=== PATIENT | male | born 1940 | race Caucasian/White ===

== ENCOUNTER 2017-12-01 10:30 | Outpatient (RCR) | payer MEDICARE, OTHER, SELFPAY ==
[2017-11-24 09:49] VITALS: BP 155/69; PULSE 73; RESP 18; TEMP 36.6; BMI 27.1
--- NOTE | 2017-11-24 12:47 | HP.PCM_ITS ---
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 (2) PVD (peripheral vascular disease) Status: Acute Current Visit: Yes Code(s): I73.9 - Peripheral vascular disease, unspecified (3) Lower extremity edema Status: Acute Current Visit: Yes Code(s): R60.0 - Localized edema (4) Delayed wound healing Status: Acute Current Visit: Yes Code(s): T14.8XXD - Other injury of unspecified body region, subsequent encounter (5) Malnutrition Status: Suspected Current Visit: Yes Code(s): E46 - Unspecified protein- calorie malnutrition History of Present Illness Date of Service: 11/24/17 Chief Complaint: Ulcer to left heel History of Wound: Patient is a poor historian, and it is hard to get information from him. Patient states that he noticed a blister starting on the back of his heel over 3 months ago. According to the patient, he did nothing about the blister and did not treat or dress the area. He says that both of his legs had been swelling as well and he was being treated with a water pill. He says that as the swelling was going down his blister popped. He said he still did not do anything to treat the area. He said he was seen recently by Jak Fritz who sent the patient to wound care center to be treated. The patient says he continues to walk on the area and was not told that he wasn't supposed to. He says his son helps him and can help with dressing changes if needed. He says he has not noticed any redness, bad smells, or any pus from the area. He currently denies any feelings of nausea, vomiting, fever, or chills. Past Medical History Allergies/Adverse Reactions: Allergies Sulfa (Sulfonamide Antibiotics) Allergy (Verified 11/24/17 10:11) Rash Home Medications: Ambulatory Orders Medication Instructions Recorded Lasix 40 mg PO BID 04/26/14 Tamsulosin HCl [Flomax] 0.4 mg PO DAILY 11/24/17 Valsartan 320 mg PO DAILY 11/24/17 Smoking Status: Former smoker Review of Systems Constitutional: Denies: Chills, Fever, Weight Change Cardiovascular: Denies: Chest Pain, Palpitations Respiratory: Denies: Shortness of Breath - today Gastrointestinal: Denies: Diarrhea, Nausea, Vomiting Skin: Reports: Wounds - left heel - Physical Exam Vital Signs Temp Pulse Resp BP 97.8 F 73 18 155/69 H 11/24/17 09:49 18 09:49 11/24/17 09:49 11/24/17 09:49 General: Alert, Oriented x3, Cooperative, No apparent distress Extremities: Capillary Refill Less than 3 Seconds, No Calf Tenderness - negative gerard and santoyo sign bilateral, Diminished Peripheral Pulses - DP and PT pulses non palpable due to edema in lower extremities, Edema - lower extremity edema Skin: Ulcer/ Wound - Unstageable ulcer appreciated to the patients left posterior heel. Ulcer had layer of loosened thick hyperkeratotic skin covering the area. Upon debridment and careful removal of this hyperkeratotic tissue, much of the underlying skin was intact. There is an ulcer area still appreciated to the center and the depth is unstageable. Length and width measurements noted below. No fluctuance, no probing, no tracking, no undermining , and no purulence noted. No surrounding cellulitis or increased warmth. Very slight sponginess to center of ulcer. Wound Measurements and Assessment WC - Nurse 1 - General Ulcer Measurement Start: 11/24/17 09:49 Freq: Status: Active Protocol: Activity Type Activity Date Activity User E-Sign Co-Sign Detail Recorded Client Recorded Date Recorded By Document 11/24/17 09:49 DL [id number] 11/24/17 10:06 DL 11/24/17 09:49 Wound Center Nurse 1 [Ulcer Assessment] 1-left heel -Combined with other wound No -Current Size (cm) - Length 2.0 -Current Size (cm) - Width 1.7 -Current Size (cm) - Depth 0.1 -Total Square Cm 3.40 -Photo Taken Yes -Epithelialization Medium 34-66% -Tunneling No -Undermining/Tunneling No -Circular Undermining No -Classification - Pressure Ulcer Unstageable -Exudate Amt None Present (0 %) -Wound Margin Flat & Intact -Granulation Amt None Present (0 %) -Slough/Fibrin Yes -Necrosis Amt Large (67-100%) -Necrotic Tissue Type Adherent Slough -Structure Exposed N/A -Texture (Radha-wound Skin Appearance) Assessed Localized Edema -Moisture (Radha-wound Skin Appearance Assessed ) Dry/Scaly -Color (Radha-wound Skin Appearance) Assessed -Temperature (Radha-wound Skin No Abnormality Appearance) (Pt Warm) -Tenderness on Palpation (Radha-wound No Skin Appearance) -Ulcer Cleansing Rinsed/ Irrigated with Saline -Foul Odor after Cleansing No -Anesthetic Used 5% Lidocaine Gel [Edema Assessment] -Lower Limb Edema Present Yes -Right Calf (cm) 38.2 -Right Ankle (cm) 27.8 -Left Calf (cm) 39.5 -Left Ankle (cm) 27.2 WC - Nurse 2 - General Ulcer CM Notes Start: 11/24/17 09:49 Freq: Status: Active Protocol: Activity Type Activity Date Activity User E-Sign Co-Sign Detail Recorded Client Recorded Date Recorded By Document 11/24/17 10:41 MW [id number] 11/24/17 11:02 MW 11/24/17 10:41 Wound Center Nurse 2 [Procedure/Treatment] 1-left heel -Time 10:41 -Correct Patient Yes -Correct Side, Site, Position Yes -Correct Procedure Yes -Procedure Performed Yes -Type of Procedure Debridement -Clinical Debridement Selective -Post Debridement Size (cm) - Length 2.9 -Post Debridement Size (cm) - Width 2.0 -Post Debridement Size (cm) - Depth 0.1 -Total Square Cm 5.80 -Wound/Ulcer Outcome Not Healed -Ulcer Cleansing Rinsed/ Irrigated with Saline -Foul Odor after Cleansing No -Bioengineered Tissue No -Bleeding Controlled with Pressure -Treatment Response Procedure Tolerated Well [See Physician Procedure note for Specifics] Pain Scale: 0-10 Numeric [Pain] -Is Patient Pain Free? Yes Musculoskeletal: Tenderness - Some very slight tenderness could be appreciated on palpation of the heel Neurological: Sensory exam intact to light touch and pain Psych/Mental Status: Normal Affect, Appropriate Debridement Note Post-Debridement Measurements/Treatment WC - Nurse 2 - General Ulcer CM Notes Start: 11/24/17 09:49 Freq: Status: Active Protocol: Activity Type Activity Date Activity User E-Sign Co-Sign Detail Recorded Client Recorded Date Recorded By Document 11/24/17 10:41 MW [id number] 11/24/17 11:02 MW 11/24/17 10:41 Wound Center Nurse 2 1-left heel -Time 10:41 -Correct Patient Yes -Correct Side, Site, Position Yes -Correct Procedure Yes -Procedure Performed Yes -Type of Procedure Debridement -Clinical Debridement Selective -Post Debridement Size (cm) - Length 2.9 -Post Debridement Size (cm) - Width 2.0 -Post Debridement Size (cm) - Depth 0.1 -Total Square Cm 5.80 -Wound/Ulcer Outcome Not Healed -Ulcer Cleansing Rinsed/ Irrigated with Saline -Foul Odor after Cleansing No -Bioengineered Tissue No -Bleeding Controlled with Pressure -Treatment Response Procedure Tolerated Well Pain Scale: 0-10 Numeric Is Patient Pain Free? Yes Wound debrided: left posterior heel Laterality: Left Type of Debridement: Selective debridement Anesthesia Used: 4% Lidocaine Solution Depth: Down to and including healthy tissue Percentage of wound debrided: 100 Instrument Used: #15 blade Tissue Removed: biofilm and hyperkeratotic tissue Severity: Limited To Skin Breakdown Amount of bleeding with debridement: None Patient tolerated procedure well Assessment/Plan Active Problems Ulcer of left heel (Acute) PVD (peripheral vascular disease) (Acute) Lower extremity edema (Acute) Delayed wound healing (Acute) Assessment: Ulcer to left heel, lower extremity edema, pvd Plan: Initial patient examination and evaluation was performed. A mild selective debridement was performed as previously noted in the clinical panel to the hyperkeratotic tissue surrounding the ulcer and slight biofilm overlying the ulcer. The ulcer site was then carefully cleansed. Aquacel Ag followed by a padded dry sterile dressing was then applied to the patient's left heel. He is to change this dressing daily with the help of his son. Dressing supplies were ordered for the patient. The importance of offloading the left heel was again discussed with the patient in great detail. He was instructed to not even put on shoe gear until the area is healed. He is to float the heel over a pillow under his calves with absolutely no pressure to the heel while seated or in bed. He is to only put pressure to his left forefoot if he needs to stand for any reason. Patient says he understands this. Baseline lab work as well as some other labs will be faxed over from the patient's doctors and these results will be reviewed prior to the patient's next visit. LEAS and bilateral venous Doppler exams were ordered as well as x-rays of the left foot including calcaneal axial views. These will also be reviewed prior to next visit. I recommend a diet high in protein to help with wound healing. Patient was educated on all signs and symptoms of local and systemic infection, and he is instructed to go to the emergency room immediately should he notice any. All other questions were answered to the patient's satisfaction. Patient will follow-up in clinic in 1 week or sooner if needed.
[2017-12-01 10:54] VITALS: BP 155/78; PULSE 85; RESP 18; TEMP 36.9; BMI 27.1
--- NOTE | 2017-12-01 14:39 | PCM.WC.PN ---
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 (2) PVD (peripheral vascular disease) Status: Acute Current Visit: Yes Code(s): I73.9 - Peripheral vascular disease, unspecified (3) Lower extremity edema Status: Acute Current Visit: Yes Code(s): R60.0 - Localized edema (4) Delayed wound healing Status: Acute Current Visit: Yes Code(s): T14.8XXD - Other injury of unspecified body region, subsequent encounter (5) Malnutrition Status: Suspected Current Visit: Yes Code(s): E46 - Unspecified protein-calorie malnutrition Type of Wound Date of Service: 12/01/17 Chief Complaint: Ulcer to left heel History of Wound: Patient is a poor historian, and it is hard to get information from him. Patient states that he noticed a blister starting on the back of his heel over 3 months ago. According to the patient, he did nothing about the blister and did not treat or dress the area. He says that both of his legs had been swelling as well and he was being treated with a water pill. He says that as the swelling was going down his blister popped. He said he still did not do anything to treat the area. He said he was seen recently by Jak Fritz who sent the patient to wound care center to be treated. The patient says he continues to walk on the area and was not told that he wasn't supposed to. He says his son helps him and can help with dressing changes if needed. He says he has not noticed any redness, bad smells, or any pus from the area. He currently denies any feelings of nausea, vomiting, fever, or chills. Progress of Wound: Patient presents for follow up. He said he did not remember to go get any of his xrays or other vascular testing completed last week. He and his son have been changing his dressing as instructed with the dressing supplies and [employer]. Ulcer has not changed much in appearance since last week. Rod says he has not been keeping all weight off of his heel as instructed, but that he does most of the time. Patient denies any current feelings of nausea, vomiting, fever, or chills. - Physical Exam Vital Signs Temp Pulse Resp BP 98.4 F 85 18 155/78 H 12/01/17 10:54 12/01/17 10:54 12/01/17 10:54 12/01/17 10:54 General: Alert, Oriented x3, Cooperative, No apparent distress Skin: Ulcer/ Wound - Unstageable ulcer appreciated to the patients left posterior heel. There is an ulcer area still appreciated to the center and the depth is unstageable. Length and width measurements noted below. No fluctuance, no probing, no tracking, no undermining, and no purulence noted again today. Adherent slough noted to base with some necrotic tissue. No surrounding cellulitis or increased warmth. Very slight sponginess to center of ulcer. Does not appear to be worse than last week. Wound Measurements and Assessment WC - Nurse 1 - General Ulcer Measurement Start: 11/24/17 09:49 Freq: Status: Active Protocol: Activity Type Activity Date Activity User E-Sign Co-Sign Detail Recorded Client Recorded Date Recorded By Document 12/01/17 10:54 DL [id number] 12/01/17 11:03 DL 12/01/17 10:54 Wound Center Nurse 1 [Ulcer Assessment] 1-left heel -Current Size (cm) - Length 2.6 -Current Size (cm) - Width 1.4 -Current Size (cm) - Depth 0.1 -Total Square Cm 3.64 -Photo Taken No -Exudate Amt Small (1-33%) -Exudate Type Serosanguineous -Wound Margin Distinct, Outline Attached -Granulation Amt Medium (34-66%) -Granulation Quality Red -Necrosis Amt Medium (34-66%) -Necrotic Tissue Type Adherent Slough -Texture (Radha-wound Skin Appearance) Callus -Moisture (Radha-wound Skin Appearance Dry/Scaly ) -Color (Radha-wound Skin Appearance) No Abnormality -Ulcer Cleansing Wound Cleanser -Foul Odor after Cleansing No -Anesthetic Used 4% Lidocaine Solution [Edema Assessment] -Right Calf (cm) 38 -Right Ankle (cm) 26.5 -Left Calf (cm) 37.5 -Left Ankle (cm) 26.4 BEATRICE - Nurse 2 - General Ulcer CM Notes Start: 11/24/17 09:49 Freq: Status: Active Protocol: Activity Type Activity Date Activity User E-Sign Co-Sign Detail Recorded Client Recorded Date Recorded By Document 12/01/17 12:25 MW [id number] 12/01/17 12:32 MW 12/01/17 12:25 Wound Center Nurse 2 [Procedure/Treatment] 1-left heel -Time 12:25 -Correct Patient Yes -Correct Side, Site, Position Yes -Correct Procedure Yes -Procedure Performed Yes -Type of Procedure Debridement -Clinical Debridement Subcutaneous -Post Debridement Size (cm) - Length 2.5 -Post Debridement Size (cm) - Width 2.2 -Post Debridement Size (cm) - Depth 0.1 -Total Square Cm 5.50 -Wound/Ulcer Outcome Not Healed -Ulcer Cleansing Rinsed/ Irrigated with Saline -Foul Odor after Cleansing No -Bioengineered Tissue No -Bleeding Controlled with Pressure -Treatment Response Procedure Tolerated Well [See Physician Procedure note for Specifics] Pain Scale: 0-10 Numeric [Pain] -Is Patient Pain Free? Yes Musculoskeletal: Tenderness - Patient denies tenderness to his left heel today Neurological: Sensory exam intact to light touch and pain Psych/Mental Status: Normal Affect, Appropriate Debridement Note Post-Debridement Measurements/Treatment WC - Nurse 2 - General Ulcer CM Notes Start: 11/24/17 09:49 Freq: Status: Active Protocol: Activity Type Activity Date Activity User E-Sign Co-Sign Detail Recorded Client Recorded Date Recorded By Document 11/24/17 10:41 MW [id number] 11/24/17 11:02 MW Document 12/01/17 12:25 MW [id number] 12/01/17 12:32 MW 11/24/17 12/01/17 10:41 12:25 Wound Center Nurse 2 1-left heel -Time 10:41 12:25 -Correct Patient Yes Yes -Correct Side, Site, Position Yes Yes -Correct Procedure Yes Yes -Procedure Performed Yes Yes -Type of Procedure Debridement Debridement -Clinical Debridement Selective Subcutaneous -Post Debridement Size (cm) - Length 2.9 2.5 -Post Debridement Size (cm) - Width 2.0 2.2 -Post Debridement Size (cm) - Depth 0.1 0.1 -Total Square Cm 5.80 5.50 -Wound/Ulcer Outcome Not Healed Not Healed -Ulcer Cleansing Rinsed/ Rinsed/ Irrigated with Irrigated with Saline Saline -Foul Odor after Cleansing No No -Bioengineered Tissue No No -Bleeding Controlled with Pressure Pressure -Treatment Response Procedure Procedure Tolerated Well Tolerated Well Pain Scale: 0-10 Numeric Is Patient Pain Free? Yes Yes Wound debrided: left posterior heel Laterality: Left Type of Debridement: Selective debridement Anesthesia Used: 4% Lidocaine Solution Depth: in the subcutaneous layer Percentage of wound debrided: 100 Instrument Used: #15 blade Tissue Removed: slough, biofilm, hyperkeratotic tissue. Severity: Fat Layer Exposed Amount of bleeding with debridement: Mild Bleeding Controlled with: Pressure Patient tolerated procedure well Assessment/Plan Active Problems Ulcer of left heel (Acute) PVD (peripheral vascular disease) (Acute) Lower extremity edema (Acute) Delayed wound healing (Acute) Assessment: Ulcer to left heel, lower extremity edema, pvd Plan: Patient was examined and evaluated again today. Another mild selective debridement was performed as previously noted in the clinical panel. The ulcer site was then carefully cleansed. Aquacel Ag followed by a padded dry sterile dressing was then applied to the patient's left heel. He is to continue to change this dressing daily with the help of his son. The son was called into the treatment room as well today to discuss the patient's care. The importance of offloading the left heel was again discussed with the patient and his son in great detail. He was instructed to not even put on shoe gear until the area is healed. He is to float the heel over a pillow under his calves with absolutely no pressure to the heel while seated or in bed. He is to only put pressure to his left forefoot if he needs to stand for any reason. They say they understand this. Baseline lab work as well as some other labs will be faxed over from the patient's doctors and these results will be reviewed prior to the patient's next visit. LEAS and bilateral venous Doppler exams were ordered again today as well as x-rays of the left foot including calcaneal axial views. These orderes needed to be placed again today as the patient said he forgot he was supposed to do this and missed his appointments. He and his son both were instructed to not miss the next appointment. These will also be reviewed prior to next visit. I recommend a diet high in protein to help with wound healing. Patient was educated on all signs and symptoms of local and systemic infection, and he is instructed to go to the emergency room immediately should he notice any. All other questions were answered to the patient's satisfaction. Patient will follow-up in clinic in 1 week or sooner if needed.
== END 2017-12-03 23:59 ==
LOC: WC 10:30
PROVIDERS: Visit Provider Podiatrist
DX: I73.9 Peripheral vascular disease, unspecified (principal); L97.421 Non-pressure chronic ulcer of left heel and midfoot limited to breakdown of skin; R60.0 Localized edema
CPT/HCPCS: 97597; 99203; G0463

== ENCOUNTER 2017-12-29 11:30 | Outpatient (RCR) | payer MEDICARE, OTHER, SELFPAY ==
[2017-12-04 01:22] VITALS: PULSE 85; RESP 18; TEMP 36.9
--- NOTE | 2017-12-09 08:06 | VDLE_ITS ---
Reason For Study: Non-healing wound RIGHT LEFT CFV is compressible, spontaneous, phasic, CFV is compressible, spontaneous, phasic, competent and demonstrates normal competent, and demonstrates normal augmentation. augmentation. FV is compressible, spontaneous, phasic, FV is compressible, spontaneous, phasic, competent and demonstrates normal competent and demonstrates normal augmentation. augmentation. POP V is compressible, spontaneous, phasic, POP V is compressible, spontaneous, phasic, competent and demonstrates normal competent and demonstrates normal augmentation. augmentation. T/P Trunk is compressible. T/P Trunk is compressible. PTV is compressible. PTV is compressible. RT PerV is compressible. LT PerV is compressible. SFJ competent SFJ competent GSV competent GSV competent SSV competent. SSV competent. Procedure Exam performed in department. A preliminary report was called and/or faxed to [facility]. Interpretation Summary Deep veins of the lower extremities are bilaterally patent and compressible segmentally. There is no evidence of deep vein thrombosis on either side. Valvular competence appears intact within the proximal deep venous systems bilaterally. The greater saphenous veins appear bilaterally patent and compressible segmentally. Sapheno-femoral junctions are bilaterally competent . Valvular competence appears to be intact segmentally within the greater saphenous veins bilaterally. Small saphenous veins are patent and competent bilaterally. Ordering Physician: Bernardo Izaguirre Referring Physician: Bernardo Izaguirre Performed By: Alicia Jacobs RVT
--- NOTE | 2017-12-09 09:02 | RAD_ITS ---
STUDY: X-RAY - LEFT FOOT CLINICAL: Male, 77 years old. Pain, ulcer TECHNIQUE: 5 view(s) of the foot. COMPARISON: None. FINDINGS: Bones are diffusely demineralized. Small calcaneal heel spurs noted. Normal visualized subtalar, talonavicular, calcaneocuboid, tarsal and tarsometatarsal articulations. Normal metatarsi. There is degenerative arthrosis of the metatarsophalangeal joint of the hallux . Normal tibial and fibular sesamoid bones. There is degenerative arthrosis of the interphalangeal joint of the great toe. Normal phalanges of the great toe. Normal second through fifth metatarsophalangeal joints. PIP and DIP joint arthrosis. There is nonspecific dorsal soft tissue swelling RAD/Foot min 3 Views IMPRESSION: Diffuse osteopenia with degenerative arthrosis, no demonstrated fracture or erosive osseous lesion. Calcaneal spurs Dorsal soft tissue swelling Electronically Signed: Caleb Ya MD at 10:27 EDT , Service support ,
--- NOTE | 2017-12-11 19:48 | LEAS_ITS ---
Arterial Study - Arterial Study Arterial Study: This is a 77-year-old male with history of peripheral arterial occlusive disease. He presents with a chronic nonhealing wound of the left lower extremity. The patient is brought to the noninvasive vascular laboratory at this time for the purpose of bilateral noninvasive lower extremity arterial assessment. Doppler signal assessment was used to evaluate the pulses at ankle level bilaterally. The posterior tibial and dorsalis pedis pulses were triphasic bilaterally. Segmental limb pressures were obtained at ankle level bilaterally. The right ankle pressure, as determined by posterior tibial pulse, was measured at 160 mmHg. The right ankle pressure, as determined by dorsalis pedis pulse, was measured at 160 mmHg. The left ankle pressure, as determined by posterior tibial pulse, was measured at 168 mmHg. The left ankle pressure, as determined by dorsalis pedis pulse, was measured at 151 mmHg. Pulse-volume recordings were obtained bilaterally and segmentally. Waveform amplitudes appeared to be satisfactory at all levels bilaterally, but for the left digital level, which was diminished. Resting ankle-brachial indices were calculated bilaterally. The resting right ankle-brachial index was calculated to be 1.10. The resting left ankle- brachial index was calculated to be 1.15. Impression: Based upon the findings of this resting noninvasive lower extremity arterial study, there is no evidence of significant atherosclerotic peripheral arterial occlusive disease in the lower extremities bilaterally. Triphasic waveforms are noted at ankle level bilaterally. Resting ankle-brachial indices were bilaterally normal. In summary, this represents a normal resting noninvasive lower extremity arterial study bilaterally.
[2017-12-15 09:34] VITALS: BP 172/84; PULSE 77; RESP 18; TEMP 36.6
--- NOTE | 2017-12-15 13:50 | PCM.WC.PN ---
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 (2) PVD (peripheral vascular disease) Status: Acute Current Visit: No Code(s): I73.9 - Peripheral vascular disease, unspecified (3) Lower extremity edema Status: Acute Current Visit: No Code(s): R60.0 - Localized edema (4) Delayed wound healing Status: Acute Current Visit: No Code(s): T14.8XXD - Other injury of unspecified body region, subsequent encounter (5) Malnutrition Status: Suspected Current Visit: No Code(s): E46 - Unspecified protein-calorie malnutrition Type of Wound Date of Service: 12/15/17 Chief Complaint: Ulcer to left heel History of Wound: Patient is a poor historian, and it is hard to get information from him. Patient states that he noticed a blister starting on the back of his heel over 3 months ago. According to the patient, he did nothing about the blister and did not treat or dress the area. He says that both of his legs had been swelling as well and he was being treated with a water pill. He says that as the swelling was going down his blister popped. He said he still did not do anything to treat the area. He said he was seen recently by Jak Fritz who sent the patient to wound care center to be treated. The patient says he continues to walk on the area and was not told that he wasn't supposed to. He says his son helps him and can help with dressing changes if needed. He says he has not noticed any redness, bad smells, or any pus from the area. He currently denies any feelings of nausea, vomiting, fever, or chills. Progress of Wound: Patient presents for follow up. He was a no call no show last week and he says he did not realize he had an appointment. He and his son have been changing his dressing as instructed with the dressing supplies and [employer]. Patient says he has not been keeping all weight off of his heel as instructed, but that he does most of the time. Patient denies any current feelings of nausea, vomiting, fever, or chills. - Physical Exam Vital Signs Temp Pulse Resp BP 98 F 77 18 172/84 H 12/15/17 09:34 12/15/17 09:34 12/15/17 09:34 12/15/17 09:34 General: Alert, Oriented x3, Cooperative, No apparent distress Extremities: Capillary Refill Less than 3 Seconds, No Calf Tenderness - negative gerard and santoyo sign, Diminished Peripheral Pulses - DP and PT pulses non palpable due to slight edema, Edema - slight lower extremity edema appreciated. Skin: Ulcer/ Wound - Ulcer with fat layer exposed appreciated to the patients left posterior heel. There is an ulcer area still appreciated to the center and measurements are noted. Eschar noted as well as adherent slough, fibrin, biofilm, and hyperkeratotic tissue. No fluctuance, no probing to bone, no tracking, no undermining, and no purulence noted again today. Adherent slough noted to base with some necrotic tissue. No surrounding cellulitis or increased warmth. Wound Measurements and Assessment WC - Nurse 1 - General Ulcer Measurement Start: 12/08/17 09:53 Freq: Status: Active Protocol: Activity Type Activity Date Activity User E-Sign Co-Sign Detail Recorded Client Recorded Date Recorded By Document 12/15/17 09:34 [id number] 12/15/17 09:36 12/15/17 09:34 Wound Center Nurse 1 [Ulcer Assessment] 1-left heel -Combined with other wound No -Current Size (cm) - Length 3.0 -Current Size (cm) - Width 1.4 -Current Size (cm) - Depth 0.1 -Total Square Cm 4.20 -Photo Taken No -Epithelialization Small 1-33% -Tunneling No -Undermining/Tunneling No -Circular Undermining No -Classification - Thickness Full Thickness without Exposed Support Structure -Exudate Amt Small (1-33%) -Exudate Type Serosanguineous -Wound Margin Distinct, Outline Attached -Granulation Amt Small (1-33%) -Granulation Quality [place] -Slough/Fibrin Yes -Necrosis Amt Medium (34-66%) -Necrotic Tissue Type Adherent Slough -Structure Exposed Fascia Fat Layer Exposed -Texture (Radha-wound Skin Appearance) Callus Friable Localized Edema -Moisture (Radha-wound Skin Appearance No Abnormality ) -Color (Radha-wound Skin Appearance) Ecchymosis Erythema Hemosiderin Staining -Tenderness on Palpation (Radha-wound No Skin Appearance) -Ulcer Cleansing Rinsed/ Irrigated with Saline -Foul Odor after Cleansing No -Anesthetic Used 5% Lidocaine Gel [Edema Assessment] -Lower Limb Edema Present Yes -Left Calf (cm) 37.5 -Left Ankle (cm) 27.0 BEATRICE - Nurse 2 - General Ulcer CM Notes Start: 12/08/17 09:53 Freq: Status: Active Protocol: Activity Type Activity Date Activity User E-Sign Co-Sign Detail Recorded Client Recorded Date Recorded By Document 12/15/17 09:49 MW [id number] 12/15/17 10:03 MW 12/15/17 09:49 Wound Center Nurse 2 [Procedure/Treatment] 1-left heel -Time 09:49 -Correct Patient Yes -Correct Side, Site, Position Yes -Correct Procedure Yes -Procedure Performed Yes -Type of Procedure Debridement -Clinical Debridement Subcutaneous -Post Debridement Size (cm) - Length 1.7 -Post Debridement Size (cm) - Width 1.6 -Post Debridement Size (cm) - Depth 0.4 -Total Square Cm 2.72 -Wound/Ulcer Outcome Not Healed -Ulcer Cleansing Rinsed/ Irrigated with Saline -Foul Odor after Cleansing No -Bioengineered Tissue No -Bleeding Controlled with Pressure -Treatment Response Procedure Tolerated Well [See Physician Procedure note for Specifics] Pain Scale: 0-10 Numeric [Pain] -Is Patient Pain Free? Yes Musculoskeletal: Tenderness - slight tenderness to left heel ulcer Neurological: Sensory exam intact to light touch and pain Psych/Mental Status: Normal Affect, Appropriate Debridement Note Post-Debridement Measurements/Treatment BEATRICE - Nurse 2 - General Ulcer CM Notes Start: 12/08/17 09:53 Freq: Status: Active Protocol: Activity Type Activity Date Activity User E-Sign Co-Sign Detail Recorded Client Recorded Date Recorded By Document 12/15/17 09:49 MW [id number] 12/15/17 10:03 MW 12/15/17 09:49 Wound Center Nurse 2 1-left heel -Time 09:49 -Correct Patient Yes -Correct Side, Site, Position Yes -Correct Procedure Yes -Procedure Performed Yes -Type of Procedure Debridement -Clinical Debridement Subcutaneous -Post Debridement Size (cm) - Length 1.7 -Post Debridement Size (cm) - Width 1.6 -Post Debridement Size (cm) - Depth 0.4 -Total Square Cm 2.72 -Wound/Ulcer Outcome Not Healed -Ulcer Cleansing Rinsed/ Irrigated with Saline -Foul Odor after Cleansing No -Bioengineered Tissue No -Bleeding Controlled with Pressure -Treatment Response Procedure Tolerated Well Pain Scale: 0-10 Numeric Is Patient Pain Free? Yes Wound debrided: left posterior heel Laterality: Left Type of Debridement: Excisional debridement Anesthesia Used: 4% Lidocaine Solution Depth: in the subcutaneous layer Percentage of wound debrided: 100 Instrument Used: #15 blade, Forceps Tissue Removed: eschar, adherent slough, fibrin, biofilm Severity: Fat Layer Exposed Amount of bleeding with debridement: Mild Bleeding Controlled with: Pressure Patient tolerated procedure well Assessment/Plan Clinical Impression(s) from Imaging Studies Foot X-Ray 12/09/17 09:02 IMPRESSION: Diffuse osteopenia with degenerative arthrosis, no demonstrated fracture or erosive osseous lesion. Calcaneal spurs Dorsal soft tissue swelling Electronically Signed: Caleb Ya MD at 10:27 EDT , Service support , Assessment: Ulcer to left heel, lower extremity edema, pvd Plan: Patient was examined and evaluated again today. A subcutaneous debridement was performed as noted in the clinical panel. The ulcer site was then carefully cleansed. Aquacel Ag followed by a padded dry sterile dressing was then applied to the patient's left heel. He is to continue to change this dressing daily with the help of his son. The son was called into the treatment room again today to discuss the patient's care. The importance of offloading the left heel was again discussed with the patient and his son in great detail. He was instructed to not even put on shoe gear until the area is healed. He is to float the heel over a pillow under his calves with absolutely no pressure to the heel while seated or in bed. He is to only put pressure to his left forefoot if he needs to stand for any reason. They say they understand this. Baseline lab work as well as some other labs will be faxed over from the patient's doctors and these results will be reviewed prior to the patient's next visit. LEAS and bilateral venous Doppler exam results were reviewed today. X-rays of the left foot including calcaneal axial views were reviewed which were read as diffuse osteopenia with degenerative arthrosis, no demonstrated fracture or. erosive osseous lesions. He and his son both were instructed to not miss the next appointment. I feel as though the patient does not completely listen while we talk to him at time. I recommend a diet high in protein to help with wound healing. Patient was educated on all signs and symptoms of local and systemic infection, and he is instructed to go to the emergency room immediately should he notice any. All other questions were answered to the patient's satisfaction. Patient will follow-up in clinic in 1 week or sooner if needed.
--- NOTE | 2017-12-15 14:06 | PN.PCM_ITS ---
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 (2) PVD (peripheral vascular disease) Status: Acute Current Visit: No Code(s): I73.9 - Peripheral vascular disease , unspecified (3) Lower extremity edema Status: Acute Current Visit: No Code(s): R60.0 - Localized edema (4) Delayed wound healing Status: Acute Current Visit: No Code(s): T14.8XXD - Other injury of unspecified body region, subsequent encounter (5) Malnutrition Status: Suspected Current Visit: No Code(s): E46 - Unspecified protein- calorie malnutrition Type of Wound Date of Service: 12/15/17 Chief Complaint: Ulcer to left heel History of Wound: Patient is a poor historian, and it is hard to get information from him. Patient states that he noticed a blister starting on the back of his heel over 3 months ago. According to the patient, he did nothing about the blister and did not treat or dress the area. He says that both of his legs had been swelling as well and he was being treated with a water pill. He says that as the swelling was going down his blister popped. He said he still did not do anything to treat the area. He said he was seen recently by Jak Fritz who sent the patient to wound care center to be treated. The patient says he continues to walk on the area and was not told that he wasn't supposed to. He says his son helps him and can help with dressing changes if needed. He says he has not noticed any redness, bad smells, or any pus from the area. He currently denies any feelings of nausea, vomiting, fever, or chills. Progress of Wound: Patient presents for follow up. He was a no call no show last week and he says he did not realize he had an appointment. He and his son have been changing his dressing as instructed with the dressing supplies and [employer] ag. Patient says he has not been keeping all weight off of his heel as instructed, but that he does most of the time. Patient denies any current feelings of nausea, vomiting, fever, or chills. - Physical Exam Vital Signs Temp Pulse Resp BP 98 F 77 18 172/84 H 12/15/17 09:34 12/15/17 09:34 12/15/17 09:34 12/15/17 09:34 General: Alert, Oriented x3, Cooperative, No apparent distress Extremities: Capillary Refill Less than 3 Seconds, No Calf Tenderness - negative gerard and santoyo sign, Diminished Peripheral Pulses - DP and PT pulses non palpable due to slight edema, Edema - slight lower extremity edema appreciated. Skin: Ulcer/ Wound - Ulcer with fat layer exposed appreciated to the patients left posterior heel. There is an ulcer area still appreciated to the center and measurements are noted. Eschar noted as well as adherent slough, fibrin, biofilm, and hyperkeratotic tissue. No fluctuance, no probing to bone, no tracking, no undermining, and no purulence noted again today. Adherent slough noted to base with some necrotic tissue. No surrounding cellulitis or increased warmth. Wound Measurements and Assessment WC - Nurse 1 - General Ulcer Measurement Start: 12/08/17 09:53 Freq: Status: Active Protocol: Activity Type Activity Date Activity User E-Sign Co-Sign Detail Recorded Client Recorded Date Recorded By Document 12/15/17 09:34 [id number] 12/15/17 09:36 12/15/17 09:34 Wound Center Nurse 1 [Ulcer Assessment] 1-left heel -Combined with other wound No -Current Size (cm) - Length 3.0 -Current Size (cm) - Width 1.4 -Current Size (cm) - Depth 0.1 -Total Square Cm 4.20 -Photo Taken No -Epithelialization Small 1-33% -Tunneling No -Undermining/Tunneling No -Circular Undermining No -Classification - Thickness Full Thickness without Exposed Support Structure -Exudate Amt Small (1-33%) -Exudate Type Serosanguineous -Wound Margin Distinct, Outline Attached -Granulation Amt Small (1-33%) -Granulation Quality [place] -Slough/Fibrin Yes -Necrosis Amt Medium (34-66%) -Necrotic Tissue Type Adherent Slough -Structure Exposed Fascia Fat Layer Exposed -Texture (Radha-wound Skin Appearance) Callus Friable Localized Edema -Moisture (Radha-wound Skin Appearance No Abnormality ) -Color (Radha-wound Skin Appearance) Ecchymosis Erythema Hemosiderin Staining -Tenderness on Palpation (Radha-wound No Skin Appearance) -Ulcer Cleansing Rinsed/ Irrigated with Saline -Foul Odor after Cleansing No -Anesthetic Used 5% Lidocaine Gel [Edema Assessment] -Lower Limb Edema Present Yes -Left Calf (cm) 37.5 -Left Ankle (cm) 27.0 BEATRICE - Nurse 2 - General Ulcer CM Notes Start: 12/08/17 09:53 Freq: Status: Active Protocol: Activity Type Activity Date Activity User E-Sign Co-Sign Detail Recorded Client Recorded Date Recorded By Document 12/15/17 09:49 MW [id number] 12/15/17 10:03 MW 12/15/17 09:49 Wound Center Nurse 2 [Procedure/Treatment] 1-left heel -Time 09:49 -Correct Patient Yes -Correct Side, Site, Position Yes -Correct Procedure Yes -Procedure Performed Yes -Type of Procedure Debridement -Clinical Debridement Subcutaneous -Post Debridement Size (cm) - Length 1.7 -Post Debridement Size (cm) - Width 1.6 -Post Debridement Size (cm) - Depth 0.4 -Total Square Cm 2.72 -Wound/Ulcer Outcome Not Healed -Ulcer Cleansing Rinsed/ Irrigated with Saline -Foul Odor after Cleansing No -Bioengineered Tissue No -Bleeding Controlled with Pressure -Treatment Response Procedure Tolerated Well [See Physician Procedure note for Specifics] Pain Scale: 0-10 Numeric [Pain] -Is Patient Pain Free? Yes Musculoskeletal: Tenderness - slight tenderness to left heel ulcer Neurological: Sensory exam intact to light touch and pain Psych/Mental Status: Normal Affect, Appropriate Debridement Note Post-Debridement Measurements/Treatment BEATRICE - Nurse 2 - General Ulcer CM Notes Start: 12/08/17 09:53 Freq: Status: Active Protocol: Activity Type Activity Date Activity User E-Sign Co-Sign Detail Recorded Client Recorded Date Recorded By Document 12/15/17 09:49 MW [id number] 12/15/17 10:03 MW 12/15/17 09:49 Wound Center Nurse 2 1-left heel -Time 09:49 -Correct Patient Yes -Correct Side, Site, Position Yes -Correct Procedure Yes -Procedure Performed Yes -Type of Procedure Debridement -Clinical Debridement Subcutaneous -Post Debridement Size (cm) - Length 1.7 -Post Debridement Size (cm) - Width 1.6 -Post Debridement Size (cm) - Depth 0.4 -Total Square Cm 2.72 -Wound/Ulcer Outcome Not Healed -Ulcer Cleansing Rinsed/ Irrigated with Saline -Foul Odor after Cleansing No -Bioengineered Tissue No -Bleeding Controlled with Pressure -Treatment Response Procedure Tolerated Well Pain Scale: 0-10 Numeric Is Patient Pain Free? Yes Wound debrided: left posterior heel Laterality: Left Type of Debridement: Excisional debridement Anesthesia Used: 4% Lidocaine Solution Depth: in the subcutaneous layer Percentage of wound debrided: 100 Instrument Used: #15 blade, Forceps Tissue Removed: eschar, adherent slough, fibrin, biofilm Severity: Fat Layer Exposed Amount of bleeding with debridement: Mild Bleeding Controlled with: Pressure Patient tolerated procedure well Assessment/Plan Clinical Impression(s) from Imaging Studies Foot X-Ray 12/09/17 09:02 IMPRESSION: Diffuse osteopenia with degenerative arthrosis, no demonstrated fracture or erosive osseous lesion. Calcaneal spurs Dorsal soft tissue swelling Electronically Signed: Caleb Ya MD at 10:27 EDT , Service support , Assessment: Ulcer to left heel, lower extremity edema, pvd Plan: Patient was examined and evaluated again today. A subcutaneous debridement was performed as noted in the clinical panel. The ulcer site was then carefully cleansed. Aquacel Ag followed by a padded dry sterile dressing was then applied to the patient's left heel. He is to continue to change this dressing daily with the help of his son. The son was called into the treatment room again today to discuss the patient's care. The importance of offloading the left heel was again discussed with the patient and his son in great detail. He was instructed to not even put on shoe gear until the area is healed. He is to float the heel over a pillow under his calves with absolutely no pressure to the heel while seated or in bed. He is to only put pressure to his left forefoot if he needs to stand for any reason. They say they understand this. Baseline lab work as well as some other labs will be faxed over from the patient 's doctors and these results will be reviewed prior to the patient's next visit. LEAS and bilateral venous Doppler exam results were reviewed today. X- rays of the left foot including calcaneal axial views were reviewed which were read as diffuse osteopenia with degenerative arthrosis, no demonstrated fracture or. erosive osseous lesions. He and his son both were instructed to not miss the next appointment. I feel as though the patient does not completely listen while we talk to him at time. I recommend a diet high in protein to help with wound healing. Patient was educated on all signs and symptoms of local and systemic infection, and he is instructed to go to the emergency room immediately should he notice any. All other questions were answered to the patient's satisfaction. Patient will follow-up in clinic in 1 week or sooner if needed.
[2017-12-22 09:08] VITALS: BP 165/85; PULSE 80; RESP 18; TEMP 36.3
--- NOTE | 2017-12-22 13:17 | PCM.WC.PN ---
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 Status: Acute Current Visit: Yes Code(s): L97.422 - Non-pressure chronic ulcer of left heel and midfoot with fat layer exposed (2) Ulcer of left heel Status: Acute Current Visit: No Code(s): L97.429 - Non-pressure chronic ulcer of left heel and midfoot with unspecified severity (3) PVD (peripheral vascular disease) Status: Acute Current Visit: No Code(s): I73.9 - Peripheral vascular disease, unspecified (4) Lower extremity edema Status: Acute Current Visit: No Code(s): R60.0 - Localized edema (5) Delayed wound healing Status: Acute Current Visit: No Code(s): T14.8XXD - Other injury of unspecified body region, subsequent encounter (6) Malnutrition Status: Suspected Current Visit: No Code(s): E46 - Unspecified protein-calorie malnutrition Type of Wound Date of Service: 12/22/17 Chief Complaint: Ulcer to left heel History of Wound: Patient is a poor historian, and it is hard to get information from him. Patient states that he noticed a blister starting on the back of his heel over 3 months ago. According to the patient, he did nothing about the blister and did not treat or dress the area. He says that both of his legs had been swelling as well and he was being treated with a water pill. He says that as the swelling was going down his blister popped. He said he still did not do anything to treat the area. He said he was seen recently by Jak Fritz who sent the patient to wound care center to be treated. The patient says he continues to walk on the area and was not told that he wasn't supposed to. He says his son helps him and can help with dressing changes if needed. He says he has not noticed any redness, bad smells, or any pus from the area. He currently denies any feelings of nausea, vomiting, fever, or chills. Progress of Wound: Patient presents for follow up. He and his son have been changing his dressing as instructed with the dressing supplies and [employer] ag. Patient says he has not been keeping all weight off of his heel as instructed, but that he does most of the time. He says if he has to move he tries to keep all of his pressure to his forefoot. Patient denies any current feelings of nausea, vomiting, fever, or chills. - Physical Exam Vital Signs Temp Pulse Resp BP 97.3 F L 80 18 165/85 H 12/22/17 09:08 12/22/17 09:08 12/22/17 09:08 12/22/17 09:08 General: Alert, Oriented x3, Cooperative, No apparent distress Extremities: Capillary Refill Less than 3 Seconds, No Calf Tenderness - negative gerard and santoyo sign, Diminished Peripheral Pulses - DP and PT pulses nonpalpable due to slight edema, Edema - Slight lower extremity edema appreciated Skin: Ulcer/ Wound - Ulcer with fat layer exposed appreciated to the patient's left posterior heel. The base is noted to be a mixture of adherent slough, fibrin, necrotic tissue, biofilm, with some slight surrounding hyperkeratotic tissue. There is no fluctuance, no probing to bone, no tracking, no undermining, and no purulence appreciated today. No extending cellulitis or increase in warmth appreciated today. Wound Measurements and Assessment WC - Nurse 1 - General Ulcer Measurement Start: 12/08/17 09:53 Freq: Status: Active Protocol: Activity Type Activity Date Activity User E-Sign Co-Sign Detail Recorded Client Recorded Date Recorded By Document 12/22/17 09:08 [id number] 12/22/17 09:21 RB 12/22/17 09:08 Wound Center Nurse 1 [Ulcer Assessment] 1-left heel -Combined with other wound No -Current Size (cm) - Length 1 -Current Size (cm) - Width 1 -Current Size (cm) - Depth 0.2 -Total Square Cm 1 -Photo Taken No -Epithelialization Small 1-33% -Tunneling No -Undermining/Tunneling No -Circular Undermining No -Classification - Thickness Full Thickness without Exposed Support Structure -Change in Wound Grade/Stage No Query Text:If change please identify the Stage/Grade in the comment (ie. S2 G3) -Exudate Amt Small (1-33%) -Exudate Type Serosanguineous -Wound Margin Distinct, Outline Attached -Granulation Amt Large (67-100%) -Granulation Quality [place] -Slough/Fibrin Yes -Necrosis Amt Small (1-33%) -Necrotic Tissue Type Adherent Slough -Structure Exposed N/A -Texture (Radha-wound Skin Appearance) Assessed Callus -Moisture (Radha-wound Skin Appearance Assessed ) -Color (Radha-wound Skin Appearance) Assessed -Temperature (Radha-wound Skin No Abnormality Appearance) (Pt Warm) -Tenderness on Palpation (Radha-wound No Skin Appearance) -Ulcer Cleansing Rinsed/ Irrigated with Saline -Foul Odor after Cleansing No -Anesthetic Used 5% Lidocaine Gel [Edema Assessment] -Lower Limb Edema Present Yes -Point of measurement (cm from the 40 medial instep) -Point of Measurement (cm from the 27.8 medial instep) WC - Nurse 2 - General Ulcer CM Notes Start: 12/08/17 09:53 Freq: Status: Active Protocol: Activity Type Activity Date Activity User E-Sign Co-Sign Detail Recorded Client Recorded Date Recorded By Document 12/22/17 09:40 MW [id number] 12/22/17 09:48 MW 12/22/17 09:40 Wound Center Nurse 2 [Procedure/Treatment] 1-left heel -Time 09:40 -Correct Patient Yes -Correct Side, Site, Position Yes -Correct Procedure Yes -Procedure Performed Yes -Type of Procedure Debridement -Clinical Debridement Subcutaneous -Post Debridement Size (cm) - Length 1.8 -Post Debridement Size (cm) - Width 1.2 -Post Debridement Size (cm) - Depth 0.4 -Total Square Cm 2.16 -Wound/Ulcer Outcome Not Healed -Ulcer Cleansing Rinsed/ Irrigated with Saline -Foul Odor after Cleansing No -Bioengineered Tissue No -Bleeding Controlled with Pressure -Treatment Response Procedure Tolerated Well [See Physician Procedure note for Specifics] Pain Scale: 0-10 Numeric [Pain] -Is Patient Pain Free? Yes Musculoskeletal: Tenderness - Slight tenderness 2 left heel Neurological: Sensory exam intact to light touch and pain Psych/Mental Status: Normal Affect, Appropriate Debridement Note Post-Debridement Measurements/Treatment WC - Nurse 2 - General Ulcer CM Notes Start: 12/08/17 09:53 Freq: Status: Active Protocol: Activity Type Activity Date Activity User E-Sign Co-Sign Detail Recorded Client Recorded Date Recorded By Document 12/15/17 09:49 MW [id number] 12/15/17 10:03 MW Document 12/22/17 09:40 MW [id number] 12/22/17 09:48 MW 12/15/17 12/22/17 09:49 09:40 Wound Center Nurse 2 1-left heel -Time 09:49 09:40 -Correct Patient Yes Yes -Correct Side, Site, Position Yes Yes -Correct Procedure Yes Yes -Procedure Performed Yes Yes -Type of Procedure Debridement Debridement -Clinical Debridement Subcutaneous Subcutaneous -Post Debridement Size (cm) - Length 1.7 1.8 -Post Debridement Size (cm) - Width 1.6 1.2 -Post Debridement Size (cm) - Depth 0.4 0.4 -Total Square Cm 2.72 2.16 -Wound/Ulcer Outcome Not Healed Not Healed -Ulcer Cleansing Rinsed/ Rinsed/ Irrigated with Irrigated with Saline Saline -Foul Odor after Cleansing No No -Bioengineered Tissue No No -Bleeding Controlled with Pressure Pressure -Treatment Response Procedure Procedure Tolerated Well Tolerated Well Pain Scale: 0-10 Numeric Is Patient Pain Free? Yes Yes Wound debrided: Left posterior heel Laterality: Left Type of Debridement: Excisional debridement Depth: in the subcutaneous layer Percentage of wound debrided: 100 Instrument Used: #15 blade, Forceps Tissue Removed: Adherent slough, fibrin, biofilm, necrotic tissue, hyperkeratotic tissue Severity: Fat Layer Exposed Amount of bleeding with debridement: Mild Bleeding Controlled with: Pressure Patient tolerated procedure well Assessment/Plan Clinical Impression(s) from Imaging Studies Foot X-Ray 12/09/17 09:02 IMPRESSION: Diffuse osteopenia with degenerative arthrosis, no demonstrated fracture or erosive osseous lesion. Calcaneal spurs Dorsal soft tissue swelling Electronically Signed: Caleb Ya MD at 10:27 EDT , Service support , Active Problems Chronic ulcer of left heel with fat layer exposed (Acute) Assessment: Ulcer to left heel, lower extremity edema, pvd Plan: Patient was examined and evaluated again today. A subcutaneous debridement was performed as noted in the clinical panel. The ulcer site was then carefully cleansed. Aquacel Ag followed by a padded dry sterile dressing was then applied to the patient's left heel. He is to continue to change this dressing daily with the help of his son. The importance of offloading the left heel was again discussed with the patient again in great detail. He was instructed to not even put on shoe gear until the area is healed. He is to float the heel over a pillow under his calves with absolutely no pressure to the heel while seated or in bed. He is to only put pressure to his left forefoot if he needs to stand for any reason. He says he understands this. Baseline lab work as well as some other labs will be faxed over from the patient's doctors and these results will be reviewed prior to the patient's next visit. X-rays of the left foot including calcaneal axial views were reviewed which were read as diffuse osteopenia with degenerative arthrosis, no demonstrated fracture or erosive osseous lesions. He and his son both were instructed to not miss the next appointment. I feel as though the patient does not completely listen while we talk to him at times. I recommend a diet high in protein to help with wound healing. We will see if the patient will be approved for epifix. Patient was educated on all signs and symptoms of local and systemic infection, and he is instructed to go to the emergency room immediately should he notice any. All other questions were answered to the patient's satisfaction. Patient will follow-up in clinic in 1 week or sooner if needed.
--- NOTE | 2017-12-22 13:28 | PN.PCM_ITS ---
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 Status: Acute Current Visit: Yes Code(s): L97.422 - Non-pressure chronic ulcer of left heel and midfoot with fat layer exposed (2) Ulcer of left heel Status: Acute Current Visit: No Code(s): L97.429 - Non-pressure chronic ulcer of left heel and midfoot with unspecified severity (3) PVD (peripheral vascular disease) Status: Acute Current Visit: No Code(s): I73.9 - Peripheral vascular disease , unspecified (4) Lower extremity edema Status: Acute Current Visit: No Code(s): R60.0 - Localized edema (5) Delayed wound healing Status: Acute Current Visit: No Code(s): T14.8XXD - Other injury of unspecified body region, subsequent encounter (6) Malnutrition Status: Suspected Current Visit: No Code(s): E46 - Unspecified protein- calorie malnutrition Type of Wound Date of Service: 12/22/17 Chief Complaint: Ulcer to left heel History of Wound: Patient is a poor historian, and it is hard to get information from him. Patient states that he noticed a blister starting on the back of his heel over 3 months ago. According to the patient, he did nothing about the blister and did not treat or dress the area. He says that both of his legs had been swelling as well and he was being treated with a water pill. He says that as the swelling was going down his blister popped. He said he still did not do anything to treat the area. He said he was seen recently by Jak Fritz who sent the patient to wound care center to be treated. The patient says he continues to walk on the area and was not told that he wasn't supposed to. He says his son helps him and can help with dressing changes if needed. He says he has not noticed any redness, bad smells, or any pus from the area. He currently denies any feelings of nausea, vomiting, fever, or chills. Progress of Wound: Patient presents for follow up. He and his son have been changing his dressing as instructed with the dressing supplies and [employer] ag. Patient says he has not been keeping all weight off of his heel as instructed, but that he does most of the time. He says if he has to move he tries to keep all of his pressure to his forefoot. Patient denies any current feelings of nausea, vomiting, fever, or chills. - Physical Exam Vital Signs Temp Pulse Resp BP 97.3 F L 80 18 165/85 H 12/22/17 09:08 12/22/17 09:08 12/22/17 09:08 12/22/17 09:08 General: Alert, Oriented x3, Cooperative, No apparent distress Extremities: Capillary Refill Less than 3 Seconds, No Calf Tenderness - negative gerard and santoyo sign, Diminished Peripheral Pulses - DP and PT pulses nonpalpable due to slight edema, Edema - Slight lower extremity edema appreciated Skin: Ulcer/ Wound - Ulcer with fat layer exposed appreciated to the patient's left posterior heel. The base is noted to be a mixture of adherent slough, fibrin, necrotic tissue, biofilm, with some slight surrounding hyperkeratotic tissue. There is no fluctuance, no probing to bone, no tracking, no undermining , and no purulence appreciated today. No extending cellulitis or increase in warmth appreciated today. Wound Measurements and Assessment WC - Nurse 1 - General Ulcer Measurement Start: 12/08/17 09:53 Freq: Status: Active Protocol: Activity Type Activity Date Activity User E-Sign Co-Sign Detail Recorded Client Recorded Date Recorded By Document 12/22/17 09:08 [email or web address] 12/22/17 09:21 RB 12/22/17 09:08 Wound Center Nurse 1 [Ulcer Assessment] 1-left heel -Combined with other wound No -Current Size (cm) - Length 1 -Current Size (cm) - Width 1 -Current Size (cm) - Depth 0.2 -Total Square Cm 1 -Photo Taken No -Epithelialization Small 1-33% -Tunneling No -Undermining/Tunneling No -Circular Undermining No -Classification - Thickness Full Thickness without Exposed Support Structure -Change in Wound Grade/Stage No Query Text:If change please identify the Stage/Grade in the comment (ie. S2 G3) -Exudate Amt Small (1-33%) -Exudate Type Serosanguineous -Wound Margin Distinct, Outline Attached -Granulation Amt Large (67-100%) -Granulation Quality [place] -Slough/Fibrin Yes -Necrosis Amt Small (1-33%) -Necrotic Tissue Type Adherent Slough -Structure Exposed N/A -Texture (Radha-wound Skin Appearance) Assessed Callus -Moisture (Radha-wound Skin Appearance Assessed ) -Color (Radha-wound Skin Appearance) Assessed -Temperature (Radha-wound Skin No Abnormality Appearance) (Pt Warm) -Tenderness on Palpation (Radha-wound No Skin Appearance) -Ulcer Cleansing Rinsed/ Irrigated with Saline -Foul Odor after Cleansing No -Anesthetic Used 5% Lidocaine Gel [Edema Assessment] -Lower Limb Edema Present Yes -Point of measurement (cm from the 40 medial instep) -Point of Measurement (cm from the 27.8 medial instep) WC - Nurse 2 - General Ulcer CM Notes Start: 12/08/17 09:53 Freq: Status: Active Protocol: Activity Type Activity Date Activity User E-Sign Co-Sign Detail Recorded Client Recorded Date Recorded By Document 12/22/17 09:40 MW [id number] 12/22/17 09:48 MW 12/22/17 09:40 Wound Center Nurse 2 [Procedure/Treatment] 1-left heel -Time 09:40 -Correct Patient Yes -Correct Side, Site, Position Yes -Correct Procedure Yes -Procedure Performed Yes -Type of Procedure Debridement -Clinical Debridement Subcutaneous -Post Debridement Size (cm) - Length 1.8 -Post Debridement Size (cm) - Width 1.2 -Post Debridement Size (cm) - Depth 0.4 -Total Square Cm 2.16 -Wound/Ulcer Outcome Not Healed -Ulcer Cleansing Rinsed/ Irrigated with Saline -Foul Odor after Cleansing No -Bioengineered Tissue No -Bleeding Controlled with Pressure -Treatment Response Procedure Tolerated Well [See Physician Procedure note for Specifics] Pain Scale: 0-10 Numeric [Pain] -Is Patient Pain Free? Yes Musculoskeletal: Tenderness - Slight tenderness 2 left heel Neurological: Sensory exam intact to light touch and pain Psych/Mental Status: Normal Affect, Appropriate Debridement Note Post-Debridement Measurements/Treatment WC - Nurse 2 - General Ulcer CM Notes Start: 12/08/17 09:53 Freq: Status: Active Protocol: Activity Type Activity Date Activity User E-Sign Co-Sign Detail Recorded Client Recorded Date Recorded By Document 12/15/17 09:49 MW [id number] 12/15/17 10:03 MW Document 12/22/17 09:40 MW [id number] 12/22/17 09:48 MW 12/15/17 12/22/17 09:49 09:40 Wound Center Nurse 2 1-left heel -Time 09:49 09:40 -Correct Patient Yes Yes -Correct Side, Site, Position Yes Yes -Correct Procedure Yes Yes -Procedure Performed Yes Yes -Type of Procedure Debridement Debridement -Clinical Debridement Subcutaneous Subcutaneous -Post Debridement Size (cm) - Length 1.7 1.8 -Post Debridement Size (cm) - Width 1.6 1.2 -Post Debridement Size (cm) - Depth 0.4 0.4 -Total Square Cm 2.72 2.16 -Wound/Ulcer Outcome Not Healed Not Healed -Ulcer Cleansing Rinsed/ Rinsed/ Irrigated with Irrigated with Saline Saline -Foul Odor after Cleansing No No -Bioengineered Tissue No No -Bleeding Controlled with Pressure Pressure -Treatment Response Procedure Procedure Tolerated Well Tolerated Well Pain Scale: 0-10 Numeric Is Patient Pain Free? Yes Yes Wound debrided: Left posterior heel Laterality: Left Type of Debridement: Excisional debridement Depth: in the subcutaneous layer Percentage of wound debrided: 100 Instrument Used: #15 blade, Forceps Tissue Removed: Adherent slough, fibrin, biofilm, necrotic tissue, hyperkeratotic tissue Severity: Fat Layer Exposed Amount of bleeding with debridement: Mild Bleeding Controlled with: Pressure Patient tolerated procedure well Assessment/Plan Clinical Impression(s) from Imaging Studies Foot X-Ray 12/09/17 09:02 IMPRESSION: Diffuse osteopenia with degenerative arthrosis, no demonstrated fracture or erosive osseous lesion. Calcaneal spurs Dorsal soft tissue swelling Electronically Signed: Caleb Ya MD at 10:27 EDT , Service support , Active Problems Chronic ulcer of left heel with fat layer exposed (Acute) Assessment: Ulcer to left heel, lower extremity edema, pvd Plan: Patient was examined and evaluated again today. A subcutaneous debridement was performed as noted in the clinical panel. The ulcer site was then carefully cleansed. Aquacel Ag followed by a padded dry sterile dressing was then applied to the patient's left heel. He is to continue to change this dressing daily with the help of his son. The importance of offloading the left heel was again discussed with the patient again in great detail. He was instructed to not even put on shoe gear until the area is healed. He is to float the heel over a pillow under his calves with absolutely no pressure to the heel while seated or in bed. He is to only put pressure to his left forefoot if he needs to stand for any reason. He says he understands this. Baseline lab work as well as some other labs will be faxed over from the patient 's doctors and these results will be reviewed prior to the patient's next visit. X-rays of the left foot including calcaneal axial views were reviewed which were read as diffuse osteopenia with degenerative arthrosis, no demonstrated fracture or erosive osseous lesions. He and his son both were instructed to not miss the next appointment. I feel as though the patient does not completely listen while we talk to him at times. I recommend a diet high in protein to help with wound healing. We will see if the patient will be approved for epifix. Patient was educated on all signs and symptoms of local and systemic infection, and he is instructed to go to the emergency room immediately should he notice any. All other questions were answered to the patient's satisfaction. Patient will follow-up in clinic in 1 week or sooner if needed.
[2017-12-29 12:39] VITALS: BP 191/89; PULSE 77; RESP 16; TEMP 37.2
--- NOTE | 2017-12-29 14:48 | PCM.WC.PN ---
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 Status: Acute Current Visit: Yes Code(s): L97.422 - Non-pressure chronic ulcer of left heel and midfoot with fat layer exposed (2) Ulcer of left heel Status: Acute Current Visit: No Code(s): L97.429 - Non-pressure chronic ulcer of left heel and midfoot with unspecified severity (3) PVD (peripheral vascular disease) Status: Acute Current Visit: No Code(s): I73.9 - Peripheral vascular disease, unspecified (4) Lower extremity edema Status: Acute Current Visit: No Code(s): R60.0 - Localized edema (5) Delayed wound healing Status: Acute Current Visit: No Code(s): T14.8XXD - Other injury of unspecified body region, subsequent encounter (6) Malnutrition Status: Suspected Current Visit: No Code(s): E46 - Unspecified protein-calorie malnutrition Type of Wound Date of Service: 12/29/17 Chief Complaint: Ulcer to left heel History of Wound: Patient is a poor historian, and it is hard to get information from him. Patient states that he noticed a blister starting on the back of his heel over 3 months ago. According to the patient, he did nothing about the blister and did not treat or dress the area. He says that both of his legs had been swelling as well and he was being treated with a water pill. He says that as the swelling was going down his blister popped. He said he still did not do anything to treat the area. He said he was seen recently by Jak Fritz who sent the patient to wound care center to be treated. The patient says he continues to walk on the area and was not told that he wasn't supposed to. He says his son helps him and can help with dressing changes if needed. He says he has not noticed any redness, bad smells, or any pus from the area. He currently denies any feelings of nausea, vomiting, fever, or chills. Progress of Wound: Patient presents for follow up. He and his son have been changing his dressing as instructed with the dressing supplies and [employer] ag. Patient says he has not been keeping all weight off of his heel as instructed, but that he does most of the time. He says if he has to move he tries to keep all of his pressure to his forefoot. However, patient was seen walking with pressure on his heel through the wound center today. Patient denies any current feelings of nausea, vomiting, fever, or chills. - Physical Exam Vital Signs Temp Pulse Resp BP 98.9 F 77 16 191/89 H 12/29/17 12:39 12/29/17 12:39 12/29/17 12:39 12/29/17 12:39 General: Alert, Oriented x3, Cooperative, No apparent distress Extremities: Capillary Refill Less than 3 Seconds, No Calf Tenderness - Negative Alicia and Bishop sign, Diminished Peripheral Pulses - DP and PT pulses nonpalpable due to slight edema, Edema - Slight lower extremity edema appreciated Skin: Ulcer/ Wound - Ulcer noted with fat layer exposed to the patient's left posterior heel. The base is noted to be a mixture of adherent slough, fibrin, necrotic tissue, biofilm and some slight surrounding hyperkeratotic tissue. There continues to be no fluctuance, no probing to bone, no tracking, no undermining, and no purulence. There is no extending cellulitis and no significant increase in warmth appreciated again today. Wound Measurements and Assessment WC - Nurse 1 - General Ulcer Measurement Start: 12/08/17 09:53 Freq: Status: Active Protocol: Activity Type Activity Date Activity User E-Sign Co-Sign Detail Recorded Client Recorded Date Recorded By Document 12/29/17 12:39 [facility] [id number] 12/29/17 12:55 [facility] 12/29/17 12:39 Wound Center Nurse 1 [Ulcer Assessment] 1-left heel -Combined with other wound No -Current Size (cm) - Length 1.5 -Current Size (cm) - Width 1.7 -Current Size (cm) - Depth 0.2 -Total Square Cm 2.55 -Photo Taken No -Epithelialization Small 1-33% -Tunneling No -Undermining/Tunneling No -Circular Undermining No -Exudate Amt Small (1-33%) -Exudate Type Serous -Wound Margin Distinct, Outline Attached -Granulation Amt Medium (34-66%) -Granulation Quality [place] -Slough/Fibrin Yes -Necrosis Amt Medium (34-66%) -Necrotic Tissue Type Adherent Slough -Structure Exposed None/Limited to Skin Breakdown -Texture (Radha-wound Skin Appearance) Scarring -Moisture (Radha-wound Skin Appearance Dry/Scaly ) -Color (Radha-wound Skin Appearance) Erythema -Temperature (Radha-wound Skin No Abnormality Appearance) (Pt Warm) -Tenderness on Palpation (Radha-wound Yes Skin Appearance) -Ulcer Cleansing Wound Cleanser -Foul Odor after Cleansing No -Anesthetic Used 5% Lidocaine Gel [Edema Assessment] -Lower Limb Edema Present Yes -Left Calf (cm) 37.9 -Left Ankle (cm) 27.2 WC - Nurse 2 - General Ulcer CM Notes Start: 12/08/17 09:53 Freq: Status: Active Protocol: Activity Type Activity Date Activity User E-Sign Co-Sign Detail Recorded Client Recorded Date Recorded By Document 12/29/17 13:16 MW [id number] 12/29/17 13:23 MW 12/29/17 13:16 Wound Center Nurse 2 [Procedure/Treatment] 1-left heel -Time 13:16 -Correct Patient Yes -Correct Side, Site, Position Yes -Correct Procedure Yes -Procedure Performed Yes -Type of Procedure Debridement -Clinical Debridement Subcutaneous -Post Debridement Size (cm) - Length 1.6 -Post Debridement Size (cm) - Width 1.1 -Post Debridement Size (cm) - Depth 0.4 -Total Square Cm 1.76 -Wound/Ulcer Outcome Not Healed -Ulcer Cleansing Rinsed/ Irrigated with Saline -Foul Odor after Cleansing No -Bioengineered Tissue Yes -Type of bioengineered Tissue EPIFIX -Expiration Date 09/05/22 -Product Lot Number [id number] -Percent Used 100 -Saline Lot Number [id number] -Bleeding Controlled with Pressure -Treatment Response Procedure Tolerated Well [See Physician Procedure note for Specifics] Pain Scale: 0-10 Numeric [Pain] -Is Patient Pain Free? Yes Musculoskeletal: Tenderness - Slight tenderness appreciated to the left heel Neurological: Sensory exam intact to light touch and pain Psych/Mental Status: Normal Affect, Appropriate Debridement Note Post-Debridement Measurements/Treatment - Nurse 2 - General Ulcer CM Notes Start: 12/08/17 09:53 Freq: Status: Active Protocol: Activity Type Activity Date Activity User E-Sign Co-Sign Detail Recorded Client Recorded Date Recorded By Document 12/15/17 09:49 MW [id number] 12/15/17 10:03 MW Document 12/22/17 09:40 MW [id number] 12/22/17 09:48 MW Document 12/29/17 13:16 MW [id number] 12/29/17 13:23 MW 12/15/17 12/22/17 12/29/17 09:49 09:40 13:16 Wound Center Nurse 2 1-left heel -Time 09:49 09:40 13:16 -Correct Patient Yes Yes Yes -Correct Side, Site, Position Yes Yes Yes -Correct Procedure Yes Yes Yes -Procedure Performed Yes Yes Yes -Type of Procedure Debridement Debridement Debridement -Clinical Debridement Subcutaneous Subcutaneous Subcutaneous -Post Debridement Size (cm) - Length 1.7 1.8 1.6 -Post Debridement Size (cm) - Width 1.6 1.2 1.1 -Post Debridement Size (cm) - Depth 0.4 0.4 0.4 -Total Square Cm 2.72 2.16 1.76 -Wound/Ulcer Outcome Not Healed Not Healed Not Healed -Ulcer Cleansing Rinsed/ Rinsed/ Rinsed/ Irrigated with Irrigated with Irrigated with Saline Saline Saline -Foul Odor after Cleansing No No No -Bioengineered Tissue No No Yes -Type of bioengineered Tissue EPIFIX -Expiration Date 09/05/22 -Product Lot Number [id number] -Percent Used 100 -Saline Lot Number [id number] -Bleeding Controlled with Pressure Pressure Pressure -Treatment Response Procedure Procedure Procedure Tolerated Well Tolerated Well Tolerated Well Pain Scale: 0-10 Numeric Is Patient Pain Free? Yes Yes Yes Wound debrided: Left posterior heel Laterality: Left Type of Debridement: Excisional debridement Anesthesia Used: 4% Lidocaine Solution Depth: in the subcutaneous layer Percentage of wound debrided: 100 Instrument Used: #15 blade, - - Tissue nipper Tissue Removed: Adherent slough, fibrin, biofilm, necrotic tissue, hyperkeratotic tissue Severity: Fat Layer Exposed Amount of bleeding with debridement: Mild Bleeding Controlled with: Pressure Patient tolerated procedure well Assessment/Plan Clinical Impression(s) from Imaging Studies Foot X-Ray 12/09/17 09:02 IMPRESSION: Diffuse osteopenia with degenerative arthrosis, no demonstrated fracture or erosive osseous lesion. Calcaneal spurs Dorsal soft tissue swelling Electronically Signed: Caleb Ya MD at 10:27 EDT , Service support , Active Problems Chronic ulcer of left heel with fat layer exposed (Acute) Assessment: Ulcer to left heel, lower extremity edema, pvd Plan: Patient was examined and evaluated again today. A subcutaneous debridement was performed as noted in the clinical panel. The ulcer site was then carefully cleansed. The first epifix application was applied to the ulcer base today. This was followed by wound veil Steri-Strips and a dry sterile dressing. Patient was instructed to keep the dressing clean dry and intact from the wound veil dressing and lower and that he could change the outer dressing above this layer if needed. He was instructed to keep this dressing intact for the next week until his next visit here. The importance of offloading the left heel was again discussed with the patient again in great detail. He was instructed to not even put on shoe gear until the area is healed. He is to float the heel over a pillow under his calves with absolutely no pressure to the heel while seated or in bed. He is to only put pressure to his left forefoot if he needs to stand for any reason. He says he understands this. Baseline lab work as well as some other labs will be faxed over from the patient's doctors and these results will be reviewed prior to the patient's next visit. X-rays of the left foot including calcaneal axial views were reviewed which were read as diffuse osteopenia with degenerative arthrosis, no demonstrated fracture or erosive osseous lesions. He and his son both were instructed to not miss the next appointment. I feel as though the patient does not completely listen while we talk to him at times, so I continue to question his compliance. I recommend a diet high in protein to help with wound healing. Patient was educated on all signs and symptoms of local and systemic infection, and he is instructed to go to the emergency room immediately should he notice any. All other questions were answered to the patient's satisfaction. Patient will follow-up in clinic in 1 week or sooner if needed.
--- NOTE | 2017-12-29 15:04 | PN.PCM_ITS ---
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 Status: Acute Current Visit: Yes Code(s): L97.422 - Non-pressure chronic ulcer of left heel and midfoot with fat layer exposed (2) Ulcer of left heel Status: Acute Current Visit: No Code(s): L97.429 - Non-pressure chronic ulcer of left heel and midfoot with unspecified severity (3) PVD (peripheral vascular disease) Status: Acute Current Visit: No Code(s): I73.9 - Peripheral vascular disease , unspecified (4) Lower extremity edema Status: Acute Current Visit: No Code(s): R60.0 - Localized edema (5) Delayed wound healing Status: Acute Current Visit: No Code(s): T14.8XXD - Other injury of unspecified body region, subsequent encounter (6) Malnutrition Status: Suspected Current Visit: No Code(s): E46 - Unspecified protein- calorie malnutrition Type of Wound Date of Service: 12/29/17 Chief Complaint: Ulcer to left heel History of Wound: Patient is a poor historian, and it is hard to get information from him. Patient states that he noticed a blister starting on the back of his heel over 3 months ago. According to the patient, he did nothing about the blister and did not treat or dress the area. He says that both of his legs had been swelling as well and he was being treated with a water pill. He says that as the swelling was going down his blister popped. He said he still did not do anything to treat the area. He said he was seen recently by Jak Fritz who sent the patient to wound care center to be treated. The patient says he continues to walk on the area and was not told that he wasn't supposed to. He says his son helps him and can help with dressing changes if needed. He says he has not noticed any redness, bad smells, or any pus from the area. He currently denies any feelings of nausea, vomiting, fever, or chills. Progress of Wound: Patient presents for follow up. He and his son have been changing his dressing as instructed with the dressing supplies and [employer] ag. Patient says he has not been keeping all weight off of his heel as instructed, but that he does most of the time. He says if he has to move he tries to keep all of his pressure to his forefoot. However, patient was seen walking with pressure on his heel through the wound center today. Patient denies any current feelings of nausea, vomiting, fever, or chills. - Physical Exam Vital Signs Temp Pulse Resp BP 98.9 F 77 16 191/89 H 12/29/17 12:39 12/29/17 12:39 12/29/17 12:39 12/29/17 12:39 General: Alert, Oriented x3, Cooperative, No apparent distress Extremities: Capillary Refill Less than 3 Seconds, No Calf Tenderness - Negative Alicia and Bishop sign, Diminished Peripheral Pulses - DP and PT pulses nonpalpable due to slight edema, Edema - Slight lower extremity edema appreciated Skin: Ulcer/ Wound - Ulcer noted with fat layer exposed to the patient's left posterior heel. The base is noted to be a mixture of adherent slough, fibrin, necrotic tissue, biofilm and some slight surrounding hyperkeratotic tissue. There continues to be no fluctuance, no probing to bone, no tracking, no undermining, and no purulence. There is no extending cellulitis and no significant increase in warmth appreciated again today. Wound Measurements and Assessment WC - Nurse 1 - General Ulcer Measurement Start: 12/08/17 09:53 Freq: Status: Active Protocol: Activity Type Activity Date Activity User E-Sign Co-Sign Detail Recorded Client Recorded Date Recorded By Document 12/29/17 12:39 [facility] [id number] 12/29/17 12:55 [facility] 12/29/17 12:39 Wound Center Nurse 1 [Ulcer Assessment] 1-left heel -Combined with other wound No -Current Size (cm) - Length 1.5 -Current Size (cm) - Width 1.7 -Current Size (cm) - Depth 0.2 -Total Square Cm 2.55 -Photo Taken No -Epithelialization Small 1-33% -Tunneling No -Undermining/Tunneling No -Circular Undermining No -Exudate Amt Small (1-33%) -Exudate Type Serous -Wound Margin Distinct, Outline Attached -Granulation Amt Medium (34-66%) -Granulation Quality [place] -Slough/Fibrin Yes -Necrosis Amt Medium (34-66%) -Necrotic Tissue Type Adherent Slough -Structure Exposed None/Limited to Skin Breakdown -Texture (Radha-wound Skin Appearance) Scarring -Moisture (Radha-wound Skin Appearance Dry/Scaly ) -Color (Radha-wound Skin Appearance) Erythema -Temperature (Radha-wound Skin No Abnormality Appearance) (Pt Warm) -Tenderness on Palpation (Radha-wound Yes Skin Appearance) -Ulcer Cleansing Wound Cleanser -Foul Odor after Cleansing No -Anesthetic Used 5% Lidocaine Gel [Edema Assessment] -Lower Limb Edema Present Yes -Left Calf (cm) 37.9 -Left Ankle (cm) 27.2 WC - Nurse 2 - General Ulcer CM Notes Start: 12/08/17 09:53 Freq: Status: Active Protocol: Activity Type Activity Date Activity User E-Sign Co-Sign Detail Recorded Client Recorded Date Recorded By Document 12/29/17 13:16 MW [id number] 12/29/17 13:23 MW 12/29/17 13:16 Wound Center Nurse 2 [Procedure/Treatment] 1-left heel -Time 13:16 -Correct Patient Yes -Correct Side, Site, Position Yes -Correct Procedure Yes -Procedure Performed Yes -Type of Procedure Debridement -Clinical Debridement Subcutaneous -Post Debridement Size (cm) - Length 1.6 -Post Debridement Size (cm) - Width 1.1 -Post Debridement Size (cm) - Depth 0.4 -Total Square Cm 1.76 -Wound/Ulcer Outcome Not Healed -Ulcer Cleansing Rinsed/ Irrigated with Saline -Foul Odor after Cleansing No -Bioengineered Tissue Yes -Type of bioengineered Tissue EPIFIX -Expiration Date 09/05/22 -Product Lot Number [id number] -Percent Used 100 -Saline Lot Number [id number] -Bleeding Controlled with Pressure -Treatment Response Procedure Tolerated Well [See Physician Procedure note for Specifics] Pain Scale: 0-10 Numeric [Pain] -Is Patient Pain Free? Yes Musculoskeletal: Tenderness - Slight tenderness appreciated to the left heel Neurological: Sensory exam intact to light touch and pain Psych/Mental Status: Normal Affect, Appropriate Debridement Note Post-Debridement Measurements/Treatment - Nurse 2 - General Ulcer CM Notes Start: 12/08/17 09:53 Freq: Status: Active Protocol: Activity Type Activity Date Activity User E-Sign Co-Sign Detail Recorded Client Recorded Date Recorded By Document 12/15/17 09:49 MW [id number] 12/15/17 10:03 MW Document 12/22/17 09:40 MW [id number] 12/22/17 09:48 MW Document 12/29/17 13:16 MW [id number] 12/29/17 13:23 MW 12/15/17 12/22/17 12/29/17 09:49 09:40 13:16 Wound Center Nurse 2 1-left heel -Time 09:49 09:40 13:16 -Correct Patient Yes Yes Yes -Correct Side, Site, Position Yes Yes Yes -Correct Procedure Yes Yes Yes -Procedure Performed Yes Yes Yes -Type of Procedure Debridement Debridement Debridement -Clinical Debridement Subcutaneous Subcutaneous Subcutaneous -Post Debridement Size (cm) - Length 1.7 1.8 1.6 -Post Debridement Size (cm) - Width 1.6 1.2 1.1 -Post Debridement Size (cm) - Depth 0.4 0.4 0.4 -Total Square Cm 2.72 2.16 1.76 -Wound/Ulcer Outcome Not Healed Not Healed Not Healed -Ulcer Cleansing Rinsed/ Rinsed/ Rinsed/ Irrigated with Irrigated with Irrigated with Saline Saline Saline -Foul Odor after Cleansing No No No -Bioengineered Tissue No No Yes -Type of bioengineered Tissue EPIFIX -Expiration Date 09/05/22 -Product Lot Number [id number] -Percent Used 100 -Saline Lot Number [id number] -Bleeding Controlled with Pressure Pressure Pressure -Treatment Response Procedure Procedure Procedure Tolerated Well Tolerated Well Tolerated Well Pain Scale: 0-10 Numeric Is Patient Pain Free? Yes Yes Yes Wound debrided: Left posterior heel Laterality: Left Type of Debridement: Excisional debridement Anesthesia Used: 4% Lidocaine Solution Depth: in the subcutaneous layer Percentage of wound debrided: 100 Instrument Used: #15 blade, - - Tissue nipper Tissue Removed: Adherent slough, fibrin, biofilm, necrotic tissue, hyperkeratotic tissue Severity: Fat Layer Exposed Amount of bleeding with debridement: Mild Bleeding Controlled with: Pressure Patient tolerated procedure well Assessment/Plan Clinical Impression(s) from Imaging Studies Foot X-Ray 12/09/17 09:02 IMPRESSION: Diffuse osteopenia with degenerative arthrosis, no demonstrated fracture or erosive osseous lesion. Calcaneal spurs Dorsal soft tissue swelling Electronically Signed: Caleb Ya MD at 10:27 EDT , Service support , Active Problems Chronic ulcer of left heel with fat layer exposed (Acute) Assessment: Ulcer to left heel, lower extremity edema, pvd Plan: Patient was examined and evaluated again today. A subcutaneous debridement was performed as noted in the clinical panel. The ulcer site was then carefully cleansed. The first epifix application was applied to the ulcer base today. This was followed by wound veil Steri-Strips and a dry sterile dressing. Patient was instructed to keep the dressing clean dry and intact from the wound veil dressing and lower and that he could change the outer dressing above this layer if needed. He was instructed to keep this dressing intact for the next week until his next visit here. The importance of offloading the left heel was again discussed with the patient again in great detail. He was instructed to not even put on shoe gear until the area is healed. He is to float the heel over a pillow under his calves with absolutely no pressure to the heel while seated or in bed. He is to only put pressure to his left forefoot if he needs to stand for any reason. He says he understands this. Baseline lab work as well as some other labs will be faxed over from the patient's doctors and these results will be reviewed prior to the patient's next visit. X-rays of the left foot including calcaneal axial views were reviewed which were read as diffuse osteopenia with degenerative arthrosis, no demonstrated fracture or erosive osseous lesions. He and his son both were instructed to not miss the next appointment. I feel as though the patient does not completely listen while we talk to him at times, so I continue to question his compliance. I recommend a diet high in protein to help with wound healing. Patient was educated on all signs and symptoms of local and systemic infection, and he is instructed to go to the emergency room immediately should he notice any. All other questions were answered to the patient's satisfaction. Patient will follow-up in clinic in 1 week or sooner if needed.
== END 2018-01-02 23:59 ==
LOC: WC 11:30
PROVIDERS: Visit Provider Podiatrist
DX: I73.9 Peripheral vascular disease, unspecified (principal); L97.422 Non-pressure chronic ulcer of left heel and midfoot with fat layer exposed; M77.30 Calcaneal spur, unspecified foot; R60.0 Localized edema
CPT/HCPCS: 11042; 15275; 73630; 93923; 93970; Q4131

== ENCOUNTER 2018-02-02 08:30 | Outpatient (RCR) | payer MEDICARE, OTHER, SELFPAY ==
[2018-01-03 01:00] VITALS: PULSE 77; RESP 16; TEMP 37.2
[2018-01-05 10:02] VITALS: BP 157/79; PULSE 91; RESP 18; TEMP 36
--- NOTE | 2018-01-05 14:05 | PCM.WC.PN ---
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 (2) PVD (peripheral vascular disease) Status: Acute Current Visit: No Code(s): I73.9 - Peripheral vascular disease, unspecified (3) Lower extremity edema Status: Acute Current Visit: No Code(s): R60.0 - Localized edema (4) Delayed wound healing Status: Acute Current Visit: No Code(s): T14.8XXD - Other injury of unspecified body region, subsequent encounter (5) Malnutrition Status: Suspected Current Visit: No Code(s): E46 - Unspecified protein-calorie malnutrition (6) 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 Patient states that he noticed a blister starting on the back of his heel over 3 months ago. According to the patient, he did nothing about the blister and did not treat or dress the area. He says that both of his legs had been swelling as well and he was being treated with a water pill. He says that as the swelling was going down his blister popped. He said he still did not do anything to treat the area. He said he was seen recently by Jak Fritz who sent the patient to wound care center to be treated. The patient says he continues to walk on the area and was not told that he wasn't supposed to. He says his son helps him and can help with dressing changes if needed. He says he has not noticed any redness, bad smells, or any pus from the area. He currently denies any feelings of nausea, vomiting, fever, or chills. Progress of Wound: Patient presents for follow up. Patient had first epifix applied last week and has left his dressing intact. Patient says he has not been keeping all weight off of his heel as instructed, but that he does most of the time. He says if he has to move he tries to keep all of his pressure to his forefoot. However, patient was seen walking with pressure on his heel through the wound center again today. Patient denies any current feelings of nausea, vomiting, fever, or chills. - Physical Exam Vital Signs Temp Pulse Resp BP 96.8 F L 91 18 157/79 H 01/05/18 10:02 01/05/18 10:02 01/05/18 10:02 01/05/18 10:02 General: Alert, Oriented x3, Cooperative, No apparent distress Extremities: Capillary Refill Less than 3 Seconds, No Calf Tenderness - negative gerard and santoyo sign, Diminished Peripheral Pulses - DP and PT pulses nonpalpable due to slight edema, Edema - slight lower extremity edema noted Skin: Ulcer/ Wound - Also noted with fat layer exposed to the patient's left posterior heel. The patient noted to be a mixture of adherent slough, fibrin, necrotic tissue, biofilm and some slight surrounding hyperkeratotic tissue. The ulcer remains similar in appearance to last week. There continues to be no fluctuance, no probing to bone, no tracking, no undermining, no purulence. There continues to be no extending cellulitis, and no significant increase in warmth appreciated today. Wound Measurements and Assessment WC - Nurse 1 - General Ulcer Measurement Start: 01/05/18 10:02 Freq: Status: Active Protocol: Activity Type Activity Date Activity User E-Sign Co-Sign Detail Recorded Client Recorded Date Recorded By Document 01/05/18 10:02 [id number] 01/05/18 10:04 01/05/18 10:02 Wound Center Nurse 1 [Ulcer Assessment] 1-left heel -Combined with other wound No -Current Size (cm) - Length 1.4 -Current Size (cm) - Width 0.7 -Current Size (cm) - Depth 0.2 -Total Square Cm 0.98 -Photo Taken No -Epithelialization Small 1-33% -Tunneling No -Undermining/Tunneling No -Circular Undermining No -Classification - Thickness Full Thickness without Exposed Support Structure -Exudate Amt Small (1-33%) -Exudate Type Serosanguineous -Wound Margin Distinct, Outline Attached -Granulation Amt Small (1-33%) -Granulation Quality Pale [place] -Slough/Fibrin Yes -Necrosis Amt Medium (34-66%) -Necrotic Tissue Type Adherent Slough -Structure Exposed Fascia Fat Layer Exposed -Texture (Radha-wound Skin Appearance) Callus Friable Localized Edema Scarring -Moisture (Radha-wound Skin Appearance Maceration ) -Color (Radha-wound Skin Appearance) Erythema Palor -Temperature (Radha-wound Skin No Abnormality Appearance) (Pt Warm) -Tenderness on Palpation (Radha-wound No Skin Appearance) -Ulcer Cleansing Rinsed/ Irrigated with Saline -Foul Odor after Cleansing No -Anesthetic Used 5% Lidocaine Gel [Edema Assessment] -Lower Limb Edema Present Yes -Left Calf (cm) 35.5 -Left Ankle (cm) 29.0 WC - Nurse 2 - General Ulcer CM Notes Start: 01/05/18 10:02 Freq: Status: Active Protocol: Activity Type Activity Date Activity User E-Sign Co-Sign Detail Recorded Client Recorded Date Recorded By Document 01/05/18 10:21 MW [id number] 01/05/18 10:29 MW 01/05/18 10:21 Wound Center Nurse 2 [Procedure/Treatment] 1-left heel -Time 10:22 -Correct Patient Yes -Correct Side, Site, Position Yes -Correct Procedure Yes -Procedure Performed Yes -Type of Procedure Debridement -Clinical Debridement Subcutaneous -Post Debridement Size (cm) - Length 1.2 -Post Debridement Size (cm) - Width 1.1 -Post Debridement Size (cm) - Depth 0.4 -Total Square Cm 1.32 -Wound/Ulcer Outcome Not Healed -Ulcer Cleansing Rinsed/ Irrigated with Saline -Foul Odor after Cleansing No -Bioengineered Tissue Yes -Type of bioengineered Tissue EPIFIX -Expiration Date 09/05/22 -Product Lot Number [id number] -Percent Used 100 -Saline Lot Number [id number] -Bleeding Controlled with Pressure -Treatment Response Procedure Tolerated Well [See Physician Procedure note for Specifics] Pain Scale: 0-10 Numeric [Pain] -Is Patient Pain Free? Yes Musculoskeletal: Tenderness - Slight tenderness appreciated a left heel Neurological: Sensory exam intact to light touch and pain Psych/Mental Status: Normal Affect, Appropriate Debridement Note Post-Debridement Measurements/Treatment - Nurse 2 - General Ulcer CM Notes Start: 01/05/18 10:02 Freq: Status: Active Protocol: Activity Type Activity Date Activity User E-Sign Co-Sign Detail Recorded Client Recorded Date Recorded By Document 01/05/18 10:21 MW [id number] 01/05/18 10:29 MW 01/05/18 10:21 Wound Center Nurse 2 1-left heel -Time 10:22 -Correct Patient Yes -Correct Side, Site, Position Yes -Correct Procedure Yes -Procedure Performed Yes -Type of Procedure Debridement -Clinical Debridement Subcutaneous -Post Debridement Size (cm) - Length 1.2 -Post Debridement Size (cm) - Width 1.1 -Post Debridement Size (cm) - Depth 0.4 -Total Square Cm 1.32 -Wound/Ulcer Outcome Not Healed -Ulcer Cleansing Rinsed/ Irrigated with Saline -Foul Odor after Cleansing No -Bioengineered Tissue Yes -Type of bioengineered Tissue EPIFIX -Expiration Date 09/05/22 -Product Lot Number [id number] -Percent Used 100 -Saline Lot Number [id number] -Bleeding Controlled with Pressure -Treatment Response Procedure Tolerated Well Pain Scale: 0-10 Numeric Is Patient Pain Free? Yes Wound debrided: Left posterior heel Laterality: Left Type of Debridement: Excisional debridement Anesthesia Used: 4% Lidocaine Solution Depth: in the subcutaneous layer Percentage of wound debrided: 100 Instrument Used: 5mm curette, #15 blade Tissue Removed: Adherent slough, fibrin, biofilm, necrotic tissue, hyperkeratotic tissue Severity: Fat Layer Exposed Amount of bleeding with debridement: Mild Bleeding Controlled with: Pressure Patient tolerated procedure well Assessment/Plan Assessment: Ulcer to left heel, lower extremity edema, pvd Plan: Patient was examined and evaluated again today. A subcutaneous debridement was performed as noted in the clinical panel. The ulcer site was then carefully cleansed. The second epifix application was applied to the ulcer base today. This was followed by wound veil Steri-Strips and a dry sterile dressing. Patient was instructed to keep the dressing clean dry and intact from the wound veil dressing and lower and that he could change the outer dressing above this layer if needed. He was instructed to keep this dressing intact for the next week until his next visit here. The importance of offloading the left heel was again discussed with the patient again in great detail. He was instructed to not even put on shoe gear until the area is healed. He is to float the heel over a pillow under his calves with absolutely no pressure to the heel while seated or in bed. He is to only put pressure to his left forefoot if he needs to stand for any reason. He says he understands this. Baseline lab work as well as some other labs will be faxed over from the patient's doctors and these results will be reviewed prior to the patient's next visit. I feel as though the patient does not completely listen while we talk to him at times, so I continue to question his compliance. I recommend a diet high in protein to help with wound healing. Patient was educated on all signs and symptoms of local and systemic infection, and he is instructed to go to the emergency room immediately should he notice any. All other questions were answered to the patient's satisfaction. Patient will follow-up in clinic in 1 week or sooner if needed.
--- NOTE | 2018-01-05 14:15 | PN.PCM_ITS ---
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 (2) PVD (peripheral vascular disease) Status: Acute Current Visit: No Code(s): I73.9 - Peripheral vascular disease , unspecified (3) Lower extremity edema Status: Acute Current Visit: No Code(s): R60.0 - Localized edema (4) Delayed wound healing Status: Acute Current Visit: No Code(s): T14.8XXD - Other injury of unspecified body region, subsequent encounter (5) Malnutrition Status: Suspected Current Visit: No Code(s): E46 - Unspecified protein- calorie malnutrition (6) 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 Patient states that he noticed a blister starting on the back of his heel over 3 months ago. According to the patient, he did nothing about the blister and did not treat or dress the area. He says that both of his legs had been swelling as well and he was being treated with a water pill. He says that as the swelling was going down his blister popped. He said he still did not do anything to treat the area. He said he was seen recently by Jak Fritz who sent the patient to wound care center to be treated. The patient says he continues to walk on the area and was not told that he wasn't supposed to. He says his son helps him and can help with dressing changes if needed. He says he has not noticed any redness, bad smells, or any pus from the area. He currently denies any feelings of nausea, vomiting, fever, or chills. Progress of Wound: Patient presents for follow up. Patient had first epifix applied last week and has left his dressing intact. Patient says he has not been keeping all weight off of his heel as instructed, but that he does most of the time. He says if he has to move he tries to keep all of his pressure to his forefoot. However, patient was seen walking with pressure on his heel through the wound center again today. Patient denies any current feelings of nausea, vomiting, fever, or chills. - Physical Exam Vital Signs Temp Pulse Resp BP 96.8 F L 91 18 157/79 H 01/05/18 10:02 01/05/18 10:02 01/05/18 10:02 01/05/18 10:02 General: Alert, Oriented x3, Cooperative, No apparent distress Extremities: Capillary Refill Less than 3 Seconds, No Calf Tenderness - negative gerard and santoyo sign, Diminished Peripheral Pulses - DP and PT pulses nonpalpable due to slight edema, Edema - slight lower extremity edema noted Skin: Ulcer/ Wound - Also noted with fat layer exposed to the patient's left posterior heel. The patient noted to be a mixture of adherent slough, fibrin, necrotic tissue, biofilm and some slight surrounding hyperkeratotic tissue. The ulcer remains similar in appearance to last week. There continues to be no fluctuance, no probing to bone, no tracking, no undermining, no purulence. There continues to be no extending cellulitis, and no significant increase in warmth appreciated today. Wound Measurements and Assessment WC - Nurse 1 - General Ulcer Measurement Start: 01/05/18 10:02 Freq: Status: Active Protocol: Activity Type Activity Date Activity User E-Sign Co-Sign Detail Recorded Client Recorded Date Recorded By Document 01/05/18 10:02 [id number] 01/05/18 10:04 01/05/18 10:02 Wound Center Nurse 1 [Ulcer Assessment] 1-left heel -Combined with other wound No -Current Size (cm) - Length 1.4 -Current Size (cm) - Width 0.7 -Current Size (cm) - Depth 0.2 -Total Square Cm 0.98 -Photo Taken No -Epithelialization Small 1-33% -Tunneling No -Undermining/Tunneling No -Circular Undermining No -Classification - Thickness Full Thickness without Exposed Support Structure -Exudate Amt Small (1-33%) -Exudate Type Serosanguineous -Wound Margin Distinct, Outline Attached -Granulation Amt Small (1-33%) -Granulation Quality Pale [place] -Slough/Fibrin Yes -Necrosis Amt Medium (34-66%) -Necrotic Tissue Type Adherent Slough -Structure Exposed Fascia Fat Layer Exposed -Texture (Radha-wound Skin Appearance) Callus Friable Localized Edema Scarring -Moisture (Radha-wound Skin Appearance Maceration ) -Color (Radha-wound Skin Appearance) Erythema Palor -Temperature (Radha-wound Skin No Abnormality Appearance) (Pt Warm) -Tenderness on Palpation (Radha-wound No Skin Appearance) -Ulcer Cleansing Rinsed/ Irrigated with Saline -Foul Odor after Cleansing No -Anesthetic Used 5% Lidocaine Gel [Edema Assessment] -Lower Limb Edema Present Yes -Left Calf (cm) 35.5 -Left Ankle (cm) 29.0 WC - Nurse 2 - General Ulcer CM Notes Start: 01/05/18 10:02 Freq: Status: Active Protocol: Activity Type Activity Date Activity User E-Sign Co-Sign Detail Recorded Client Recorded Date Recorded By Document 01/05/18 10:21 MW [id number] 01/05/18 10:29 MW 01/05/18 10:21 Wound Center Nurse 2 [Procedure/Treatment] 1-left heel -Time 10:22 -Correct Patient Yes -Correct Side, Site, Position Yes -Correct Procedure Yes -Procedure Performed Yes -Type of Procedure Debridement -Clinical Debridement Subcutaneous -Post Debridement Size (cm) - Length 1.2 -Post Debridement Size (cm) - Width 1.1 -Post Debridement Size (cm) - Depth 0.4 -Total Square Cm 1.32 -Wound/Ulcer Outcome Not Healed -Ulcer Cleansing Rinsed/ Irrigated with Saline -Foul Odor after Cleansing No -Bioengineered Tissue Yes -Type of bioengineered Tissue EPIFIX -Expiration Date 09/05/22 -Product Lot Number [id number] -Percent Used 100 -Saline Lot Number [id number] -Bleeding Controlled with Pressure -Treatment Response Procedure Tolerated Well [See Physician Procedure note for Specifics] Pain Scale: 0-10 Numeric [Pain] -Is Patient Pain Free? Yes Musculoskeletal: Tenderness - Slight tenderness appreciated a left heel Neurological: Sensory exam intact to light touch and pain Psych/Mental Status: Normal Affect, Appropriate Debridement Note Post-Debridement Measurements/Treatment - Nurse 2 - General Ulcer CM Notes Start: 01/05/18 10:02 Freq: Status: Active Protocol: Activity Type Activity Date Activity User E-Sign Co-Sign Detail Recorded Client Recorded Date Recorded By Document 01/05/18 10:21 MW [id number] 01/05/18 10:29 MW 01/05/18 10:21 Wound Center Nurse 2 1-left heel -Time 10:22 -Correct Patient Yes -Correct Side, Site, Position Yes -Correct Procedure Yes -Procedure Performed Yes -Type of Procedure Debridement -Clinical Debridement Subcutaneous -Post Debridement Size (cm) - Length 1.2 -Post Debridement Size (cm) - Width 1.1 -Post Debridement Size (cm) - Depth 0.4 -Total Square Cm 1.32 -Wound/Ulcer Outcome Not Healed -Ulcer Cleansing Rinsed/ Irrigated with Saline -Foul Odor after Cleansing No -Bioengineered Tissue Yes -Type of bioengineered Tissue EPIFIX -Expiration Date 09/05/22 -Product Lot Number [id number] -Percent Used 100 -Saline Lot Number [id number] -Bleeding Controlled with Pressure -Treatment Response Procedure Tolerated Well Pain Scale: 0-10 Numeric Is Patient Pain Free? Yes Wound debrided: Left posterior heel Laterality: Left Type of Debridement: Excisional debridement Anesthesia Used: 4% Lidocaine Solution Depth: in the subcutaneous layer Percentage of wound debrided: 100 Instrument Used: 5mm curette, #15 blade Tissue Removed: Adherent slough, fibrin, biofilm, necrotic tissue, hyperkeratotic tissue Severity: Fat Layer Exposed Amount of bleeding with debridement: Mild Bleeding Controlled with: Pressure Patient tolerated procedure well Assessment/Plan Assessment: Ulcer to left heel, lower extremity edema, pvd Plan: Patient was examined and evaluated again today. A subcutaneous debridement was performed as noted in the clinical panel. The ulcer site was then carefully cleansed. The second epifix application was applied to the ulcer base today. This was followed by wound veil Steri-Strips and a dry sterile dressing. Patient was instructed to keep the dressing clean dry and intact from the wound veil dressing and lower and that he could change the outer dressing above this layer if needed. He was instructed to keep this dressing intact for the next week until his next visit here. The importance of offloading the left heel was again discussed with the patient again in great detail. He was instructed to not even put on shoe gear until the area is healed. He is to float the heel over a pillow under his calves with absolutely no pressure to the heel while seated or in bed. He is to only put pressure to his left forefoot if he needs to stand for any reason. He says he understands this. Baseline lab work as well as some other labs will be faxed over from the patient's doctors and these results will be reviewed prior to the patient's next visit. I feel as though the patient does not completely listen while we talk to him at times, so I continue to question his compliance. I recommend a diet high in protein to help with wound healing. Patient was educated on all signs and symptoms of local and systemic infection, and he is instructed to go to the emergency room immediately should he notice any. All other questions were answered to the patient's satisfaction. Patient will follow-up in clinic in 1 week or sooner if needed.
[2018-01-12 10:14] VITALS: BP 157/67; PULSE 82; RESP 18; TEMP 37
--- NOTE | 2018-01-12 10:35 | PCM.WC.PN ---
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 (2) PVD (peripheral vascular disease) Status: Acute Current Visit: No Code(s): I73.9 - Peripheral vascular disease, unspecified (3) Lower extremity edema Status: Acute Current Visit: No Code(s): R60.0 - Localized edema (4) Delayed wound healing Status: Acute Current Visit: No Code(s): T14.8XXD - Other injury of unspecified body region, subsequent encounter (5) Malnutrition Status: Suspected Current Visit: No Code(s): E46 - Unspecified protein-calorie malnutrition (6) 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 Patient states that he noticed a blister starting on the back of his heel over 3 months ago. According to the patient, he did nothing about the blister and did not treat or dress the area. He says that both of his legs had been swelling as well and he was being treated with a water pill. He says that as the swelling was going down his blister popped. He said he still did not do anything to treat the area. He said he was seen recently by Jak Fritz who sent the patient to wound care center to be treated. The patient says he continues to walk on the area and was not told that he wasn't supposed to. He says his son helps him and can help with dressing changes if needed. He says he has not noticed any redness, bad smells, or any pus from the area. He currently denies any feelings of nausea, vomiting, fever, or chills. Progress of Wound: Patient presents for follow up. Patient had second epifix applied last week and has left his dressing intact. Patient says he has not been keeping all weight off of his heel as instructed, but that he does most of the time. He says his son modified one of his shoes and cut the back out of it that way there is no pressure to the ulcer area. He says if he has to move he tries to keep all of his pressure to his forefoot. Patient denies any current feelings of nausea, vomiting, fever, or chills. - Physical Exam Vital Signs Temp Pulse Resp BP 98.6 F 82 18 157/67 H 01/12/18 10:14 01/12/18 10:14 01/12/18 10:14 01/12/18 10:14 General: Alert, Oriented x3, Cooperative, No apparent distress Extremities: Capillary Refill Less than 3 Seconds, No Calf Tenderness - negative gerard and santoyo sign, Diminished Peripheral Pulses - DP and PT pulses nonpalpable due to slight edema, Edema - Slight lower extremity edema noted Skin: Ulcer/ Wound - Ulcer noted with fat layer exposed to the left posterior heel. It appears slightly improved in appearance since last week. The ulcer base is noted to be a mixture of adherent slough, fibrin, necrotic tissue, biofilm and some slight surrounding hyperkeratotic tissue. There continues to be no extending cellulits or increase in warmth. Wound Measurements and Assessment WC - Nurse 1 - General Ulcer Measurement Start: 01/05/18 10:02 Freq: Status: Active Protocol: Activity Type Activity Date Activity User E-Sign Co-Sign Detail Recorded Client Recorded Date Recorded By Document 01/12/18 10:14 [id number] 01/12/18 10:17 01/12/18 10:14 Wound Center Nurse 1 [Ulcer Assessment] 1-left heel -Combined with other wound No -Current Size (cm) - Length 1.4 -Current Size (cm) - Width 0.7 -Current Size (cm) - Depth 0.2 -Total Square Cm 0.98 -Photo Taken No -Epithelialization Small 1-33% -Tunneling No -Undermining/Tunneling No -Circular Undermining No -Classification - Thickness Full Thickness without Exposed Support Structure -Exudate Amt Small (1-33%) -Exudate Type Serosanguineous -Wound Margin Distinct, Outline Attached -Granulation Amt Large (67-100%) -Granulation Quality Pale [place] -Slough/Fibrin Yes -Necrosis Amt Small (1-33%) -Necrotic Tissue Type Adherent Slough -Structure Exposed Fascia Fat Layer Exposed -Texture (Radha-wound Skin Appearance) Callus Scarring -Moisture (Radha-wound Skin Appearance No Abnormality ) -Color (Radha-wound Skin Appearance) No Abnormality -Temperature (Radha-wound Skin No Abnormality Appearance) (Pt Warm) -Tenderness on Palpation (Radha-wound No Skin Appearance) -Ulcer Cleansing hibiclens -Foul Odor after Cleansing No -Anesthetic Used 5% Lidocaine Gel [Edema Assessment] -Lower Limb Edema Present Yes -Left Calf (cm) 37.8 -Left Ankle (cm) 26.5 WC - Nurse 2 - General Ulcer CM Notes Start: 01/05/18 10:02 Freq: Status: Active Protocol: Activity Type Activity Date Activity User E-Sign Co-Sign Detail Recorded Client Recorded Date Recorded By Document 01/12/18 10:26 MW [id number] 01/12/18 10:32 MW 01/12/18 10:26 Wound Center Nurse 2 [Procedure/Treatment] 1-left heel -Time 10:30 -Correct Patient Yes -Correct Side, Site, Position Yes -Correct Procedure Yes -Procedure Performed Yes -Type of Procedure Debridement -Clinical Debridement Subcutaneous -Post Debridement Size (cm) - Length 1.1 -Post Debridement Size (cm) - Width 1.0 -Post Debridement Size (cm) - Depth 0.4 -Total Square Cm 1.10 -Wound/Ulcer Outcome Not Healed -Ulcer Cleansing Rinsed/ Irrigated with Saline -Foul Odor after Cleansing No -Type of bioengineered Tissue EPIFIX -Expiration Date 09/05/22 -Product Lot Number [id number] -Percent Used 100 -Saline Lot Number [id number] -Bleeding Controlled with Pressure -Treatment Response Procedure Tolerated Well [See Physician Procedure note for Specifics] Pain Scale: 0-10 Numeric [Pain] -Is Patient Pain Free? Yes Musculoskeletal: Tenderness - Slight tenderness appreciated to left heel Neurological: Sensory exam intact to light touch and pain Psych/Mental Status: Normal Affect, Appropriate Debridement Note Post-Debridement Measurements/Treatment WC - Nurse 2 - General Ulcer CM Notes Start: 01/05/18 10:02 Freq: Status: Active Protocol: Activity Type Activity Date Activity User E-Sign Co-Sign Detail Recorded Client Recorded Date Recorded By Document 01/05/18 10:21 MW [id number] 01/05/18 10:29 MW Document 01/12/18 10:26 MW [id number] 01/12/18 10:32 MW 01/05/18 01/12/18 10:21 10:26 Wound Center Nurse 2 1-left heel -Time 10:22 10:30 -Correct Patient Yes Yes -Correct Side, Site, Position Yes Yes -Correct Procedure Yes Yes -Procedure Performed Yes Yes -Type of Procedure Debridement Debridement -Clinical Debridement Subcutaneous Subcutaneous -Post Debridement Size (cm) - Length 1.2 1.1 -Post Debridement Size (cm) - Width 1.1 1.0 -Post Debridement Size (cm) - Depth 0.4 0.4 -Total Square Cm 1.32 1.10 -Wound/Ulcer Outcome Not Healed Not Healed -Ulcer Cleansing Rinsed/ Rinsed/ Irrigated with Irrigated with Saline Saline -Foul Odor after Cleansing No No -Bioengineered Tissue Yes -Type of bioengineered Tissue EPIFIX EPIFIX -Expiration Date 09/05/22 09/05/22 -Product Lot Number [id number] -Percent Used 100 100 -Saline Lot Number [id number] -Bleeding Controlled with Pressure Pressure -Treatment Response Procedure Procedure Tolerated Well Tolerated Well Pain Scale: 0-10 Numeric Is Patient Pain Free? Yes Yes Wound debrided: Left posterior heel Laterality: Left Type of Debridement: Excisional debridement Anesthesia Used: 4% Lidocaine Solution Depth: in the subcutaneous layer Percentage of wound debrided: 100 Instrument Used: 5mm curette Tissue Removed: Adherent slough, fibrin, biofilm, necrotic tissue, hyperkeratotic tissue Severity: Fat Layer Exposed Amount of bleeding with debridement: Mild Bleeding Controlled with: Pressure Patient tolerated procedure well Assessment/Plan Assessment: Ulcer to left heel, lower extremity edema, pvd Plan: Patient was examined and evaluated again today. A subcutaneous debridement was performed as noted in the clinical panel. The ulcer site was then carefully cleansed. The third epifix application was applied to the ulcer base today. This was followed by wound veil Steri-Strips and a dry sterile dressing. Patient was instructed to keep the dressing clean dry and intact from the wound veil dressing and lower and that he could change the outer dressing above this layer if needed. He was instructed to keep this dressing intact for the next week until his next visit here. The importance of offloading the left heel was again discussed with the patient again in great detail. He is to conintue to wear the modified shoe with the heel cut out in order to place to pressure to the area. He is to float the heel over a pillow under his calves with absolutely no pressure to the heel while seated or in bed. He is to only put pressure to his left forefoot if he needs to stand for any reason. He says he understands this. I feel as though the patient does not completely listen while we talk to him at times, so I continue to question his compliance. I recommend a diet high in protein to help with wound healing. Patient was educated on all signs and symptoms of local and systemic infection, and he is instructed to go to the emergency room immediately should he notice any. All other questions were answered to the patient's satisfaction. Patient will follow-up in clinic in 1 week or sooner if needed.
--- NOTE | 2018-01-12 10:44 | PN.PCM_ITS ---
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 (2) PVD (peripheral vascular disease) Status: Acute Current Visit: No Code(s): I73.9 - Peripheral vascular disease , unspecified (3) Lower extremity edema Status: Acute Current Visit: No Code(s): R60.0 - Localized edema (4) Delayed wound healing Status: Acute Current Visit: No Code(s): T14.8XXD - Other injury of unspecified body region, subsequent encounter (5) Malnutrition Status: Suspected Current Visit: No Code(s): E46 - Unspecified protein- calorie malnutrition (6) 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 Patient states that he noticed a blister starting on the back of his heel over 3 months ago. According to the patient, he did nothing about the blister and did not treat or dress the area. He says that both of his legs had been swelling as well and he was being treated with a water pill. He says that as the swelling was going down his blister popped. He said he still did not do anything to treat the area. He said he was seen recently by Jak Fritz who sent the patient to wound care center to be treated. The patient says he continues to walk on the area and was not told that he wasn't supposed to. He says his son helps him and can help with dressing changes if needed. He says he has not noticed any redness, bad smells, or any pus from the area. He currently denies any feelings of nausea, vomiting, fever, or chills. Progress of Wound: Patient presents for follow up. Patient had second epifix applied last week and has left his dressing intact. Patient says he has not been keeping all weight off of his heel as instructed, but that he does most of the time. He says his son modified one of his shoes and cut the back out of it that way there is no pressure to the ulcer area. He says if he has to move he tries to keep all of his pressure to his forefoot. Patient denies any current feelings of nausea, vomiting, fever, or chills. - Physical Exam Vital Signs Temp Pulse Resp BP 98.6 F 82 18 157/67 H 01/12/18 10:14 01/12/18 10:14 01/12/18 10:14 01/12/18 10:14 General: Alert, Oriented x3, Cooperative, No apparent distress Extremities: Capillary Refill Less than 3 Seconds, No Calf Tenderness - negative gerard and santoyo sign, Diminished Peripheral Pulses - DP and PT pulses nonpalpable due to slight edema, Edema - Slight lower extremity edema noted Skin: Ulcer/ Wound - Ulcer noted with fat layer exposed to the left posterior heel. It appears slightly improved in appearance since last week. The ulcer base is noted to be a mixture of adherent slough, fibrin, necrotic tissue, biofilm and some slight surrounding hyperkeratotic tissue. There continues to be no extending cellulits or increase in warmth. Wound Measurements and Assessment WC - Nurse 1 - General Ulcer Measurement Start: 01/05/18 10:02 Freq: Status: Active Protocol: Activity Type Activity Date Activity User E-Sign Co-Sign Detail Recorded Client Recorded Date Recorded By Document 01/12/18 10:14 [id number] 01/12/18 10:17 01/12/18 10:14 Wound Center Nurse 1 [Ulcer Assessment] 1-left heel -Combined with other wound No -Current Size (cm) - Length 1.4 -Current Size (cm) - Width 0.7 -Current Size (cm) - Depth 0.2 -Total Square Cm 0.98 -Photo Taken No -Epithelialization Small 1-33% -Tunneling No -Undermining/Tunneling No -Circular Undermining No -Classification - Thickness Full Thickness without Exposed Support Structure -Exudate Amt Small (1-33%) -Exudate Type Serosanguineous -Wound Margin Distinct, Outline Attached -Granulation Amt Large (67-100%) -Granulation Quality Pale [place] -Slough/Fibrin Yes -Necrosis Amt Small (1-33%) -Necrotic Tissue Type Adherent Slough -Structure Exposed Fascia Fat Layer Exposed -Texture (Radha-wound Skin Appearance) Callus Scarring -Moisture (Radha-wound Skin Appearance No Abnormality ) -Color (Radha-wound Skin Appearance) No Abnormality -Temperature (Radha-wound Skin No Abnormality Appearance) (Pt Warm) -Tenderness on Palpation (Radha-wound No Skin Appearance) -Ulcer Cleansing hibiclens -Foul Odor after Cleansing No -Anesthetic Used 5% Lidocaine Gel [Edema Assessment] -Lower Limb Edema Present Yes -Left Calf (cm) 37.8 -Left Ankle (cm) 26.5 WC - Nurse 2 - General Ulcer CM Notes Start: 01/05/18 10:02 Freq: Status: Active Protocol: Activity Type Activity Date Activity User E-Sign Co-Sign Detail Recorded Client Recorded Date Recorded By Document 01/12/18 10:26 MW [id number] 01/12/18 10:32 MW 01/12/18 10:26 Wound Center Nurse 2 [Procedure/Treatment] 1-left heel -Time 10:30 -Correct Patient Yes -Correct Side, Site, Position Yes -Correct Procedure Yes -Procedure Performed Yes -Type of Procedure Debridement -Clinical Debridement Subcutaneous -Post Debridement Size (cm) - Length 1.1 -Post Debridement Size (cm) - Width 1.0 -Post Debridement Size (cm) - Depth 0.4 -Total Square Cm 1.10 -Wound/Ulcer Outcome Not Healed -Ulcer Cleansing Rinsed/ Irrigated with Saline -Foul Odor after Cleansing No -Type of bioengineered Tissue EPIFIX -Expiration Date 09/05/22 -Product Lot Number [id number] -Percent Used 100 -Saline Lot Number [id number] -Bleeding Controlled with Pressure -Treatment Response Procedure Tolerated Well [See Physician Procedure note for Specifics] Pain Scale: 0-10 Numeric [Pain] -Is Patient Pain Free? Yes Musculoskeletal: Tenderness - Slight tenderness appreciated to left heel Neurological: Sensory exam intact to light touch and pain Psych/Mental Status: Normal Affect, Appropriate Debridement Note Post-Debridement Measurements/Treatment WC - Nurse 2 - General Ulcer CM Notes Start: 01/05/18 10:02 Freq: Status: Active Protocol: Activity Type Activity Date Activity User E-Sign Co-Sign Detail Recorded Client Recorded Date Recorded By Document 01/05/18 10:21 MW [id number] 01/05/18 10:29 MW Document 01/12/18 10:26 MW [id number] 01/12/18 10:32 MW 01/05/18 01/12/18 10:21 10:26 Wound Center Nurse 2 1-left heel -Time 10:22 10:30 -Correct Patient Yes Yes -Correct Side, Site, Position Yes Yes -Correct Procedure Yes Yes -Procedure Performed Yes Yes -Type of Procedure Debridement Debridement -Clinical Debridement Subcutaneous Subcutaneous -Post Debridement Size (cm) - Length 1.2 1.1 -Post Debridement Size (cm) - Width 1.1 1.0 -Post Debridement Size (cm) - Depth 0.4 0.4 -Total Square Cm 1.32 1.10 -Wound/Ulcer Outcome Not Healed Not Healed -Ulcer Cleansing Rinsed/ Rinsed/ Irrigated with Irrigated with Saline Saline -Foul Odor after Cleansing No No -Bioengineered Tissue Yes -Type of bioengineered Tissue EPIFIX EPIFIX -Expiration Date 09/05/22 09/05/22 -Product Lot Number [id number] -Percent Used 100 100 -Saline Lot Number [id number] -Bleeding Controlled with Pressure Pressure -Treatment Response Procedure Procedure Tolerated Well Tolerated Well Pain Scale: 0-10 Numeric Is Patient Pain Free? Yes Yes Wound debrided: Left posterior heel Laterality: Left Type of Debridement: Excisional debridement Anesthesia Used: 4% Lidocaine Solution Depth: in the subcutaneous layer Percentage of wound debrided: 100 Instrument Used: 5mm curette Tissue Removed: Adherent slough, fibrin, biofilm, necrotic tissue, hyperkeratotic tissue Severity: Fat Layer Exposed Amount of bleeding with debridement: Mild Bleeding Controlled with: Pressure Patient tolerated procedure well Assessment/Plan Assessment: Ulcer to left heel, lower extremity edema, pvd Plan: Patient was examined and evaluated again today. A subcutaneous debridement was performed as noted in the clinical panel. The ulcer site was then carefully cleansed. The third epifix application was applied to the ulcer base today. This was followed by wound veil Steri-Strips and a dry sterile dressing. Patient was instructed to keep the dressing clean dry and intact from the wound veil dressing and lower and that he could change the outer dressing above this layer if needed. He was instructed to keep this dressing intact for the next week until his next visit here. The importance of offloading the left heel was again discussed with the patient again in great detail. He is to conintue to wear the modified shoe with the heel cut out in order to place to pressure to the area. He is to float the heel over a pillow under his calves with absolutely no pressure to the heel while seated or in bed. He is to only put pressure to his left forefoot if he needs to stand for any reason. He says he understands this. I feel as though the patient does not completely listen while we talk to him at times, so I continue to question his compliance. I recommend a diet high in protein to help with wound healing. Patient was educated on all signs and symptoms of local and systemic infection, and he is instructed to go to the emergency room immediately should he notice any. All other questions were answered to the patient's satisfaction. Patient will follow-up in clinic in 1 week or sooner if needed.
[2018-01-19 08:46] VITALS: BP 158/81; PULSE 76; RESP 18; TEMP 36.4
--- NOTE | 2018-01-19 09:34 | PCM.WC.PN ---
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 (2) PVD (peripheral vascular disease) Status: Acute Current Visit: No Code(s): I73.9 - Peripheral vascular disease, unspecified (3) Lower extremity edema Status: Acute Current Visit: No Code(s): R60.0 - Localized edema (4) Delayed wound healing Status: Acute Current Visit: No Code(s): T14.8XXD - Other injury of unspecified body region, subsequent encounter (5) Malnutrition Status: Suspected Current Visit: No Code(s): E46 - Unspecified protein-calorie malnutrition (6) 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 Patient states that he noticed a blister starting on the back of his heel over 3 months ago. According to the patient, he did nothing about the blister and did not treat or dress the area. He says that both of his legs had been swelling as well and he was being treated with a water pill. He says that as the swelling was going down his blister popped. He said he still did not do anything to treat the area. He said he was seen recently by Jak Fritz who sent the patient to wound care center to be treated. The patient says he continues to walk on the area and was not told that he wasn't supposed to. He says his son helps him and can help with dressing changes if needed. He says he has not noticed any redness, bad smells, or any pus from the area. He currently denies any feelings of nausea, vomiting, fever, or chills. Progress of Wound: Patient presents for follow up. Patient had third epifix applied last week and has left his dressing intact. Patient states that he continues to try and keep all weight off of his heel the best he can. He says his son modified one of his shoes and cut the back out of it that way there is no pressure to the ulcer area. He says if he has to move he tries to keep all of his pressure to his forefoot. Patient denies any current feelings of nausea, vomiting, fever, or chills. - Physical Exam Vital Signs Temp Pulse Resp BP 97.5 F L 76 18 158/81 H 01/19/18 08:46 01/19/18 08:46 01/19/18 08:46 01/19/18 08:46 General: Alert, Oriented x3, Cooperative, No apparent distress Extremities: Capillary Refill Less than 3 Seconds, No Calf Tenderness - Negative Alicia and Bishop sign, Diminished Peripheral Pulses - DP and PT pulses nonpalpable due to slight edema, Edema - Slight lower extremity edema appreciated Skin: Ulcer/ Wound - Ulcer appreciated to the left posterior heel with fat layer exposed. The ulcer appears to be slightly improved again this week. Base of the ulcer still consists of a mixture of adherent slough, fibrin, biofilm and some slight surrounding hyperkeratotic tissue. There continues to be no extending cellulitis, no increase in warmth, no purulence, no malodor. Wound Measurements and Assessment WC - Nurse 1 - General Ulcer Measurement Start: 01/05/18 10:02 Freq: Status: Active Protocol: Activity Type Activity Date Activity User E-Sign Co-Sign Detail Recorded Client Recorded Date Recorded By Document 01/19/18 08:46 RB [id number] 01/19/18 08:58 RB 01/19/18 08:46 Wound Center Nurse 1 [Ulcer Assessment] 1-left heel -Combined with other wound No -Current Size (cm) - Length 0.8 -Current Size (cm) - Width 1.3 -Current Size (cm) - Depth 0.1 -Total Square Cm 1.04 -Photo Taken No -Tunneling No -Undermining/Tunneling No -Circular Undermining No -Classification - Thickness Full Thickness without Exposed Support Structure -Exudate Amt Small (1-33%) -Exudate Type Serosanguineous -Wound Margin Distinct, Outline Attached -Granulation Amt Medium (34-66%) -Granulation Quality [place] -Slough/Fibrin Yes -Necrosis Amt Small (1-33%) -Necrotic Tissue Type Adherent Slough -Structure Exposed N/A -Texture (Radha-wound Skin Appearance) Callus -Moisture (Radha-wound Skin Appearance Assessed ) -Color (Radha-wound Skin Appearance) Assessed -Temperature (Radha-wound Skin No Abnormality Appearance) (Pt Warm) -Tenderness on Palpation (Radha-wound No Skin Appearance) -Ulcer Cleansing Rinsed/ Irrigated with Saline -Foul Odor after Cleansing No -Anesthetic Used 4% Lidocaine Solution [Edema Assessment] -Lower Limb Edema Present Yes -Left Calf (cm) 39 -Left Ankle (cm) 26.5 Musculoskeletal: Tenderness - Slight tenderness appreciated to the left heel Neurological: Sensory exam intact to light touch and pain Psych/Mental Status: Normal Affect, Appropriate Debridement Note Post-Debridement Measurements/Treatment WC - Nurse 2 - General Ulcer CM Notes Start: 01/05/18 10:02 Freq: Status: Active Protocol: Activity Type Activity Date Activity User E-Sign Co-Sign Detail Recorded Client Recorded Date Recorded By Document 01/05/18 10:21 MW [id number] 01/05/18 10:29 MW Document 01/12/18 10:26 MW [id number] 01/12/18 10:32 MW 01/05/18 01/12/18 10:21 10:26 Wound Center Nurse 2 1-left heel -Time 10:22 10:30 -Correct Patient Yes Yes -Correct Side, Site, Position Yes Yes -Correct Procedure Yes Yes -Procedure Performed Yes Yes -Type of Procedure Debridement Debridement -Clinical Debridement Subcutaneous Subcutaneous -Post Debridement Size (cm) - Length 1.2 1.1 -Post Debridement Size (cm) - Width 1.1 1.0 -Post Debridement Size (cm) - Depth 0.4 0.4 -Total Square Cm 1.32 1.10 -Wound/Ulcer Outcome Not Healed Not Healed -Ulcer Cleansing Rinsed/ Rinsed/ Irrigated with Irrigated with Saline Saline -Foul Odor after Cleansing No No -Bioengineered Tissue Yes -Type of bioengineered Tissue EPIFIX EPIFIX -Expiration Date 09/05/22 09/05/22 -Product Lot Number [id number] -Percent Used 100 100 -Saline Lot Number [id number] -Bleeding Controlled with Pressure Pressure -Treatment Response Procedure Procedure Tolerated Well Tolerated Well Pain Scale: 0-10 Numeric Is Patient Pain Free? Yes Yes Wound debrided: Left posterior heel Laterality: Left Type of Debridement: Excisional debridement Anesthesia Used: 4% Lidocaine Solution Depth: in the subcutaneous layer Percentage of wound debrided: 100 Instrument Used: #15 blade Tissue Removed: Adherent slough, fibrin, biofilm, hyperkeratotic tissue Severity: Fat Layer Exposed Amount of bleeding with debridement: Mild Bleeding Controlled with: Pressure Patient tolerated procedure well Assessment/Plan Assessment: Ulcer to left heel, lower extremity edema, pvd Plan: Patient was examined and evaluated again today. A subcutaneous debridement was again performed as noted in the clinical panel. The ulcer site was then carefully cleansed. The fourth epifix application was applied to the ulcer today. This was followed by wound veil Steri-Strips and a dry sterile dressing. Patient was instructed to keep the dressing clean dry and intact from the wound veil dressing and lower and that he could change the outer dressing above this layer if needed. He was instructed to keep this dressing intact for the next week until his next visit here. Keepin the heel offloaded at all times was again stressed to the patient. He is to conintue to wear the modified shoe with the heel cut out in order to place to pressure to the area. He is to continue to float the heel over a pillow under his calves with absolutely no pressure to the heel while seated or in bed. He is to only put pressure to his left forefoot if he needs to stand for any reason. He says he understands this. I still continue to question patient's complete compliance with offloading. I recommend a diet high in protein to help with wound healing. Patient was educated on all signs and symptoms of local and systemic infection, and he is instructed to go to the emergency room immediately should he notice any. All other questions were answered to the patient's satisfaction. Patient will follow-up in clinic in 1 week or sooner if needed.
--- NOTE | 2018-01-19 09:40 | PN.PCM_ITS ---
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 (2) PVD (peripheral vascular disease) Status: Acute Current Visit: No Code(s): I73.9 - Peripheral vascular disease , unspecified (3) Lower extremity edema Status: Acute Current Visit: No Code(s): R60.0 - Localized edema (4) Delayed wound healing Status: Acute Current Visit: No Code(s): T14.8XXD - Other injury of unspecified body region, subsequent encounter (5) Malnutrition Status: Suspected Current Visit: No Code(s): E46 - Unspecified protein- calorie malnutrition (6) 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 Patient states that he noticed a blister starting on the back of his heel over 3 months ago. According to the patient, he did nothing about the blister and did not treat or dress the area. He says that both of his legs had been swelling as well and he was being treated with a water pill. He says that as the swelling was going down his blister popped. He said he still did not do anything to treat the area. He said he was seen recently by Jak Fritz who sent the patient to wound care center to be treated. The patient says he continues to walk on the area and was not told that he wasn't supposed to. He says his son helps him and can help with dressing changes if needed. He says he has not noticed any redness, bad smells, or any pus from the area. He currently denies any feelings of nausea, vomiting, fever, or chills. Progress of Wound: Patient presents for follow up. Patient had third epifix applied last week and has left his dressing intact. Patient states that he continues to try and keep all weight off of his heel the best he can. He says his son modified one of his shoes and cut the back out of it that way there is no pressure to the ulcer area. He says if he has to move he tries to keep all of his pressure to his forefoot. Patient denies any current feelings of nausea, vomiting, fever, or chills. - Physical Exam Vital Signs Temp Pulse Resp BP 97.5 F L 76 18 158/81 H 01/19/18 08:46 01/19/18 08:46 01/19/18 08:46 01/19/18 08:46 General: Alert, Oriented x3, Cooperative, No apparent distress Extremities: Capillary Refill Less than 3 Seconds, No Calf Tenderness - Negative Alicia and Bishop sign, Diminished Peripheral Pulses - DP and PT pulses nonpalpable due to slight edema, Edema - Slight lower extremity edema appreciated Skin: Ulcer/ Wound - Ulcer appreciated to the left posterior heel with fat layer exposed. The ulcer appears to be slightly improved again this week. Base of the ulcer still consists of a mixture of adherent slough, fibrin, biofilm and some slight surrounding hyperkeratotic tissue. There continues to be no extending cellulitis, no increase in warmth, no purulence, no malodor. Wound Measurements and Assessment WC - Nurse 1 - General Ulcer Measurement Start: 01/05/18 10:02 Freq: Status: Active Protocol: Activity Type Activity Date Activity User E-Sign Co-Sign Detail Recorded Client Recorded Date Recorded By Document 01/19/18 08:46 RB [id number] 01/19/18 08:58 RB 01/19/18 08:46 Wound Center Nurse 1 [Ulcer Assessment] 1-left heel -Combined with other wound No -Current Size (cm) - Length 0.8 -Current Size (cm) - Width 1.3 -Current Size (cm) - Depth 0.1 -Total Square Cm 1.04 -Photo Taken No -Tunneling No -Undermining/Tunneling No -Circular Undermining No -Classification - Thickness Full Thickness without Exposed Support Structure -Exudate Amt Small (1-33%) -Exudate Type Serosanguineous -Wound Margin Distinct, Outline Attached -Granulation Amt Medium (34-66%) -Granulation Quality [place] -Slough/Fibrin Yes -Necrosis Amt Small (1-33%) -Necrotic Tissue Type Adherent Slough -Structure Exposed N/A -Texture (Radha-wound Skin Appearance) Callus -Moisture (Radha-wound Skin Appearance Assessed ) -Color (Radha-wound Skin Appearance) Assessed -Temperature (Radha-wound Skin No Abnormality Appearance) (Pt Warm) -Tenderness on Palpation (Radha-wound No Skin Appearance) -Ulcer Cleansing Rinsed/ Irrigated with Saline -Foul Odor after Cleansing No -Anesthetic Used 4% Lidocaine Solution [Edema Assessment] -Lower Limb Edema Present Yes -Left Calf (cm) 39 -Left Ankle (cm) 26.5 Musculoskeletal: Tenderness - Slight tenderness appreciated to the left heel Neurological: Sensory exam intact to light touch and pain Psych/Mental Status: Normal Affect, Appropriate Debridement Note Post-Debridement Measurements/Treatment WC - Nurse 2 - General Ulcer CM Notes Start: 01/05/18 10:02 Freq: Status: Active Protocol: Activity Type Activity Date Activity User E-Sign Co-Sign Detail Recorded Client Recorded Date Recorded By Document 01/05/18 10:21 MW [id number] 01/05/18 10:29 MW Document 01/12/18 10:26 MW [id number] 01/12/18 10:32 MW 01/05/18 01/12/18 10:21 10:26 Wound Center Nurse 2 1-left heel -Time 10:22 10:30 -Correct Patient Yes Yes -Correct Side, Site, Position Yes Yes -Correct Procedure Yes Yes -Procedure Performed Yes Yes -Type of Procedure Debridement Debridement -Clinical Debridement Subcutaneous Subcutaneous -Post Debridement Size (cm) - Length 1.2 1.1 -Post Debridement Size (cm) - Width 1.1 1.0 -Post Debridement Size (cm) - Depth 0.4 0.4 -Total Square Cm 1.32 1.10 -Wound/Ulcer Outcome Not Healed Not Healed -Ulcer Cleansing Rinsed/ Rinsed/ Irrigated with Irrigated with Saline Saline -Foul Odor after Cleansing No No -Bioengineered Tissue Yes -Type of bioengineered Tissue EPIFIX EPIFIX -Expiration Date 09/05/22 09/05/22 -Product Lot Number [id number] -Percent Used 100 100 -Saline Lot Number [id number] -Bleeding Controlled with Pressure Pressure -Treatment Response Procedure Procedure Tolerated Well Tolerated Well Pain Scale: 0-10 Numeric Is Patient Pain Free? Yes Yes Wound debrided: Left posterior heel Laterality: Left Type of Debridement: Excisional debridement Anesthesia Used: 4% Lidocaine Solution Depth: in the subcutaneous layer Percentage of wound debrided: 100 Instrument Used: #15 blade Tissue Removed: Adherent slough, fibrin, biofilm, hyperkeratotic tissue Severity: Fat Layer Exposed Amount of bleeding with debridement: Mild Bleeding Controlled with: Pressure Patient tolerated procedure well Assessment/Plan Assessment: Ulcer to left heel, lower extremity edema, pvd Plan: Patient was examined and evaluated again today. A subcutaneous debridement was again performed as noted in the clinical panel. The ulcer site was then carefully cleansed. The fourth epifix application was applied to the ulcer today. This was followed by wound veil Steri-Strips and a dry sterile dressing. Patient was instructed to keep the dressing clean dry and intact from the wound veil dressing and lower and that he could change the outer dressing above this layer if needed. He was instructed to keep this dressing intact for the next week until his next visit here. Keepin the heel offloaded at all times was again stressed to the patient. He is to conintue to wear the modified shoe with the heel cut out in order to place to pressure to the area. He is to continue to float the heel over a pillow under his calves with absolutely no pressure to the heel while seated or in bed. He is to only put pressure to his left forefoot if he needs to stand for any reason. He says he understands this. I still continue to question patient's complete compliance with offloading. I recommend a diet high in protein to help with wound healing. Patient was educated on all signs and symptoms of local and systemic infection, and he is instructed to go to the emergency room immediately should he notice any. All other questions were answered to the patient's satisfaction. Patient will follow-up in clinic in 1 week or sooner if needed.
[2018-01-26 08:36] VITALS: BP 169/77; PULSE 81; RESP 18; TEMP 36.6
--- NOTE | 2018-01-26 09:37 | PCM.WC.PN ---
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 (2) PVD (peripheral vascular disease) Status: Acute Current Visit: No Code(s): I73.9 - Peripheral vascular disease, unspecified (3) Lower extremity edema Status: Acute Current Visit: No Code(s): R60.0 - Localized edema (4) Delayed wound healing Status: Acute Current Visit: No Code(s): T14.8XXD - Other injury of unspecified body region, subsequent encounter (5) Malnutrition Status: Suspected Current Visit: No Code(s): E46 - Unspecified protein-calorie malnutrition (6) 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 Patient states that he noticed a blister starting on the back of his heel over 3 months ago. According to the patient, he did nothing about the blister and did not treat or dress the area. He says that both of his legs had been swelling as well and he was being treated with a water pill. He says that as the swelling was going down his blister popped. He said he still did not do anything to treat the area. He said he was seen recently by Jak Fritz who sent the patient to wound care center to be treated. The patient says he continues to walk on the area and was not told that he wasn't supposed to. He says his son helps him and can help with dressing changes if needed. He says he has not noticed any redness, bad smells, or any pus from the area. He currently denies any feelings of nausea, vomiting, fever, or chills. Progress of Wound: Patient presents for follow up. Patient had fourth epifix applied last week and has left his dressing intact. Patient states that he continues to try and keep all weight off of his heel the best he can. He says his son modified one of his shoes and cut the back out of it that way there is no pressure to the ulcer area. He says if he has to move he tries to keep all of his pressure to his forefoot. Patient denies any current feelings of nausea, vomiting, fever, or chills. - Physical Exam Vital Signs Temp Pulse Resp BP 97.8 F 81 18 169/77 H 01/26/18 08:36 01/26/18 08:36 01/26/18 08:36 01/26/18 08:36 General: Alert, Oriented x3, Cooperative, No apparent distress Extremities: Capillary Refill Less than 3 Seconds, No Calf Tenderness - Negative Alicia and Bishop sign, Diminished Peripheral Pulses - DP and PT pulses nonpalpable due to slight edema, Edema - Slight lower extremity edema appreciated Skin: Ulcer/ Wound - Ulcer appreciated to the left posterior heel with fat layer exposed. Ulcer continues to show improvement. The base is a mixture of adherent slough, fibrin, biofilm, granular tissue, and surrounding hyperkeratotic tissue. There is no purulence no malodor, no extending cellulitis, no significant increased warmth. Wound Measurements and Assessment WC - Nurse 1 - General Ulcer Measurement Start: 01/05/18 10:02 Freq: Status: Active Protocol: Activity Type Activity Date Activity User E-Sign Co-Sign Detail Recorded Client Recorded Date Recorded By Document 01/26/18 08:36 [id number] 01/26/18 08:51 01/26/18 08:36 Wound Center Nurse 1 [Ulcer Assessment] 1-left heel -Combined with other wound No -Current Size (cm) - Length 1.2 -Current Size (cm) - Width 0.7 -Current Size (cm) - Depth 0.4 -Total Square Cm 0.84 -Date of Last Picture (Recall this 01/26/18 field) -Photo Taken Yes -Epithelialization None Present -Tunneling No -Undermining/Tunneling No -Circular Undermining No -Classification - Thickness Full Thickness without Exposed Support Structure -Classification - Pressure Ulcer Unstageable -Change in Wound Grade/Stage No Query Text:If change please identify the Stage/Grade in the comment (ie. S2 G3) -Exudate Amt None Present (0 %) -Exudate Type Serous -Wound Margin Distinct, Outline Attached -Granulation Amt None Present (0 %) -Granulation Quality N/A -Slough/Fibrin Yes -Necrosis Amt None Present (0 %) -Necrotic Tissue Type Adherent Slough -Structure Exposed N/A -Texture (Radha-wound Skin Appearance) No Abnormality -Moisture (Radha-wound Skin Appearance Maceration ) -Color (Radha-wound Skin Appearance) No Abnormality -Temperature (Radha-wound Skin No Abnormality Appearance) (Pt Warm) -Tenderness on Palpation (Radha-wound Yes Skin Appearance) -Ulcer Cleansing Rinsed/ Irrigated with Saline -Foul Odor after Cleansing No -Anesthetic Used 4% Lidocaine Solution [Edema Assessment] -Lower Limb Edema Present Yes -Right Calf (cm) 39.7 -Right Ankle (cm) 27.0 -Right Foot (cm) 28.2 -Left Calf (cm) 38.8 -Left Ankle (cm) 28.0 -Left Foot (cm) 28.7 Musculoskeletal: Tenderness - Slight tenderness appreciated to the left heel Neurological: Sensory exam intact to light touch and pain Psych/Mental Status: Normal Affect, Appropriate Debridement Note Post-Debridement Measurements/Treatment WC - Nurse 2 - General Ulcer CM Notes Start: 01/05/18 10:02 Freq: Status: Active Protocol: Activity Type Activity Date Activity User E-Sign Co-Sign Detail Recorded Client Recorded Date Recorded By Document 01/05/18 10:21 MW [id number] 01/05/18 10:29 MW Document 01/12/18 10:26 MW [id number] 01/12/18 10:32 MW Document 01/19/18 09:35 [id number] 01/19/18 09:37 JS 01/05/18 01/12/18 01/19/18 10:21 10:26 09:35 Wound Center Nurse 2 1-left heel -Time 10:22 10:30 09:35 -Correct Patient Yes Yes Yes -Correct Side, Site, Position Yes Yes Yes -Correct Procedure Yes Yes Yes -Procedure Performed Yes Yes Yes -Type of Procedure Debridement Debridement Debridement -Clinical Debridement Subcutaneous Subcutaneous Subcutaneous -Post Debridement Size (cm) - Length 1.2 1.1 1.4 -Post Debridement Size (cm) - Width 1.1 1.0 1.0 -Post Debridement Size (cm) - Depth 0.4 0.4 0.4 -Total Square Cm 1.32 1.10 1.40 -Wound/Ulcer Outcome Not Healed Not Healed Not Healed -Ulcer Cleansing Rinsed/ Rinsed/ Rinsed/ Irrigated with Irrigated with Irrigated with Saline Saline Saline -Foul Odor after Cleansing No No No -Bioengineered Tissue Yes -Type of bioengineered Tissue EPIFIX EPIFIX EPIFIX -Expiration Date 09/05/22 09/05/22 11/03/22 -Product Lot Number [id number] -Percent Used 100 100 100 -Saline Lot Number [id number] -Topical Lidocaine (%) 4 -Lidocaine (ml) 5 -Bleeding Controlled with Pressure Pressure NA -Treatment Response Procedure Procedure Procedure Tolerated Well Tolerated Well Tolerated Well Pain Scale: 0-10 Numeric Is Patient Pain Free? Yes Yes Yes Wound debrided: Left posterior heel Laterality: Left Type of Debridement: Excisional debridement Anesthesia Used: 4% Lidocaine Solution Depth: in the subcutaneous layer Percentage of wound debrided: 100 Instrument Used: #15 blade Tissue Removed: Adherent slough, fibrin, biofilm, hyperkeratotic tissue Severity: Fat Layer Exposed Amount of bleeding with debridement: Mild Bleeding Controlled with: Pressure Patient tolerated procedure well Assessment/Plan Assessment: Ulcer to left heel, lower extremity edema, pvd Plan: Patient was examined and evaluated again today. A subcutaneous debridement was again performed as noted in the clinical panel. The ulcer site was then carefully cleansed. The fifth epifix application was applied to the ulcer today. This was followed by wound veil Steri-Strips and a dry sterile dressing. Patient was instructed to keep the dressing clean dry and intact from the wound veil dressing and lower and that he could change the outer dressing above this layer if needed. He was instructed to keep this dressing intact for the next week until his next visit here. Keeping the heel offloaded at all times was again stressed to the patient. He is to conintue to wear the modified shoe with the heel cut out in order to place to pressure to the area. He is to continue to float the heel over a pillow under his calves with absolutely no pressure to the heel while seated or in bed. He is to only put pressure to his left forefoot if he needs to stand for any reason. He says he understands this. I still continue to question patient's complete compliance with offloading. I recommend a diet high in protein to help with wound healing. Patient was educated on all signs and symptoms of local and systemic infection, and he is instructed to go to the emergency room immediately should he notice any. All other questions were answered to the patient's satisfaction. Patient will follow-up in clinic in 1 week or sooner if needed.
--- NOTE | 2018-01-26 09:41 | PN.PCM_ITS ---
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 (2) PVD (peripheral vascular disease) Status: Acute Current Visit: No Code(s): I73.9 - Peripheral vascular disease , unspecified (3) Lower extremity edema Status: Acute Current Visit: No Code(s): R60.0 - Localized edema (4) Delayed wound healing Status: Acute Current Visit: No Code(s): T14.8XXD - Other injury of unspecified body region, subsequent encounter (5) Malnutrition Status: Suspected Current Visit: No Code(s): E46 - Unspecified protein- calorie malnutrition (6) 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 Patient states that he noticed a blister starting on the back of his heel over 3 months ago. According to the patient, he did nothing about the blister and did not treat or dress the area. He says that both of his legs had been swelling as well and he was being treated with a water pill. He says that as the swelling was going down his blister popped. He said he still did not do anything to treat the area. He said he was seen recently by Jak Fritz who sent the patient to wound care center to be treated. The patient says he continues to walk on the area and was not told that he wasn't supposed to. He says his son helps him and can help with dressing changes if needed. He says he has not noticed any redness, bad smells, or any pus from the area. He currently denies any feelings of nausea, vomiting, fever, or chills. Progress of Wound: Patient presents for follow up. Patient had fourth epifix applied last week and has left his dressing intact. Patient states that he continues to try and keep all weight off of his heel the best he can. He says his son modified one of his shoes and cut the back out of it that way there is no pressure to the ulcer area. He says if he has to move he tries to keep all of his pressure to his forefoot. Patient denies any current feelings of nausea, vomiting, fever, or chills. - Physical Exam Vital Signs Temp Pulse Resp BP 97.8 F 81 18 169/77 H 01/26/18 08:36 01/26/18 08:36 01/26/18 08:36 01/26/18 08:36 General: Alert, Oriented x3, Cooperative, No apparent distress Extremities: Capillary Refill Less than 3 Seconds, No Calf Tenderness - Negative Alicia and Bishop sign, Diminished Peripheral Pulses - DP and PT pulses nonpalpable due to slight edema, Edema - Slight lower extremity edema appreciated Skin: Ulcer/ Wound - Ulcer appreciated to the left posterior heel with fat layer exposed. Ulcer continues to show improvement. The base is a mixture of adherent slough, fibrin, biofilm, granular tissue, and surrounding hyperkeratotic tissue. There is no purulence no malodor, no extending cellulitis, no significant increased warmth. Wound Measurements and Assessment WC - Nurse 1 - General Ulcer Measurement Start: 01/05/18 10:02 Freq: Status: Active Protocol: Activity Type Activity Date Activity User E-Sign Co-Sign Detail Recorded Client Recorded Date Recorded By Document 01/26/18 08:36 [id number] 01/26/18 08:51 01/26/18 08:36 Wound Center Nurse 1 [Ulcer Assessment] 1-left heel -Combined with other wound No -Current Size (cm) - Length 1.2 -Current Size (cm) - Width 0.7 -Current Size (cm) - Depth 0.4 -Total Square Cm 0.84 -Date of Last Picture (Recall this 01/26/18 field) -Photo Taken Yes -Epithelialization None Present -Tunneling No -Undermining/Tunneling No -Circular Undermining No -Classification - Thickness Full Thickness without Exposed Support Structure -Classification - Pressure Ulcer Unstageable -Change in Wound Grade/Stage No Query Text:If change please identify the Stage/Grade in the comment (ie. S2 G3) -Exudate Amt None Present (0 %) -Exudate Type Serous -Wound Margin Distinct, Outline Attached -Granulation Amt None Present (0 %) -Granulation Quality N/A -Slough/Fibrin Yes -Necrosis Amt None Present (0 %) -Necrotic Tissue Type Adherent Slough -Structure Exposed N/A -Texture (Radha-wound Skin Appearance) No Abnormality -Moisture (Radha-wound Skin Appearance Maceration ) -Color (Radha-wound Skin Appearance) No Abnormality -Temperature (Radha-wound Skin No Abnormality Appearance) (Pt Warm) -Tenderness on Palpation (Radha-wound Yes Skin Appearance) -Ulcer Cleansing Rinsed/ Irrigated with Saline -Foul Odor after Cleansing No -Anesthetic Used 4% Lidocaine Solution [Edema Assessment] -Lower Limb Edema Present Yes -Right Calf (cm) 39.7 -Right Ankle (cm) 27.0 -Right Foot (cm) 28.2 -Left Calf (cm) 38.8 -Left Ankle (cm) 28.0 -Left Foot (cm) 28.7 Musculoskeletal: Tenderness - Slight tenderness appreciated to the left heel Neurological: Sensory exam intact to light touch and pain Psych/Mental Status: Normal Affect, Appropriate Debridement Note Post-Debridement Measurements/Treatment WC - Nurse 2 - General Ulcer CM Notes Start: 01/05/18 10:02 Freq: Status: Active Protocol: Activity Type Activity Date Activity User E-Sign Co-Sign Detail Recorded Client Recorded Date Recorded By Document 01/05/18 10:21 MW [id number] 01/05/18 10:29 MW Document 01/12/18 10:26 MW [id number] 01/12/18 10:32 MW Document 01/19/18 09:35 [id number] 01/19/18 09:37 JS 01/05/18 01/12/18 01/19/18 10:21 10:26 09:35 Wound Center Nurse 2 1-left heel -Time 10:22 10:30 09:35 -Correct Patient Yes Yes Yes -Correct Side, Site, Position Yes Yes Yes -Correct Procedure Yes Yes Yes -Procedure Performed Yes Yes Yes -Type of Procedure Debridement Debridement Debridement -Clinical Debridement Subcutaneous Subcutaneous Subcutaneous -Post Debridement Size (cm) - Length 1.2 1.1 1.4 -Post Debridement Size (cm) - Width 1.1 1.0 1.0 -Post Debridement Size (cm) - Depth 0.4 0.4 0.4 -Total Square Cm 1.32 1.10 1.40 -Wound/Ulcer Outcome Not Healed Not Healed Not Healed -Ulcer Cleansing Rinsed/ Rinsed/ Rinsed/ Irrigated with Irrigated with Irrigated with Saline Saline Saline -Foul Odor after Cleansing No No No -Bioengineered Tissue Yes -Type of bioengineered Tissue EPIFIX EPIFIX EPIFIX -Expiration Date 09/05/22 09/05/22 11/03/22 -Product Lot Number [id number] -Percent Used 100 100 100 -Saline Lot Number [id number] -Topical Lidocaine (%) 4 -Lidocaine (ml) 5 -Bleeding Controlled with Pressure Pressure NA -Treatment Response Procedure Procedure Procedure Tolerated Well Tolerated Well Tolerated Well Pain Scale: 0-10 Numeric Is Patient Pain Free? Yes Yes Yes Wound debrided: Left posterior heel Laterality: Left Type of Debridement: Excisional debridement Anesthesia Used: 4% Lidocaine Solution Depth: in the subcutaneous layer Percentage of wound debrided: 100 Instrument Used: #15 blade Tissue Removed: Adherent slough, fibrin, biofilm, hyperkeratotic tissue Severity: Fat Layer Exposed Amount of bleeding with debridement: Mild Bleeding Controlled with: Pressure Patient tolerated procedure well Assessment/Plan Assessment: Ulcer to left heel, lower extremity edema, pvd Plan: Patient was examined and evaluated again today. A subcutaneous debridement was again performed as noted in the clinical panel. The ulcer site was then carefully cleansed. The fifth epifix application was applied to the ulcer today. This was followed by wound veil Steri-Strips and a dry sterile dressing. Patient was instructed to keep the dressing clean dry and intact from the wound veil dressing and lower and that he could change the outer dressing above this layer if needed. He was instructed to keep this dressing intact for the next week until his next visit here. Keeping the heel offloaded at all times was again stressed to the patient. He is to conintue to wear the modified shoe with the heel cut out in order to place to pressure to the area. He is to continue to float the heel over a pillow under his calves with absolutely no pressure to the heel while seated or in bed. He is to only put pressure to his left forefoot if he needs to stand for any reason. He says he understands this. I still continue to question patient's complete compliance with offloading. I recommend a diet high in protein to help with wound healing. Patient was educated on all signs and symptoms of local and systemic infection, and he is instructed to go to the emergency room immediately should he notice any. All other questions were answered to the patient's satisfaction. Patient will follow-up in clinic in 1 week or sooner if needed.
[2018-02-02 08:40] VITALS: BP 141/80; PULSE 90; RESP 18; TEMP 36
--- NOTE | 2018-02-02 11:48 | PCM.WC.PN ---
(1) Chronic ulcer of left foot with fat layer exposed Status: Acute Current Visit: Yes Code(s): L97.522 - Non-pressure chronic ulcer of other part of left foot with fat layer exposed (2) PVD (peripheral vascular disease) Status: Acute Current Visit: No Code(s): I73.9 - Peripheral vascular disease, unspecified (3) Lower extremity edema Status: Acute Current Visit: No Code(s): R60.0 - Localized edema (4) Delayed wound healing Status: Acute Current Visit: No Code(s): T14.8XXD - Other injury of unspecified body region, subsequent encounter (5) Malnutrition Status: Suspected Current Visit: No Code(s): E46 - Unspecified protein-calorie malnutrition (6) 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 Patient states that he noticed a blister starting on the back of his heel over 3 months ago. According to the patient, he did nothing about the blister and did not treat or dress the area. He says that both of his legs had been swelling as well and he was being treated with a water pill. He says that as the swelling was going down his blister popped. He said he still did not do anything to treat the area. He said he was seen recently by Jak Fritz who sent the patient to wound care center to be treated. The patient says he continues to walk on the area and was not told that he wasn't supposed to. He says his son helps him and can help with dressing changes if needed. He says he has not noticed any redness, bad smells, or any pus from the area. He currently denies any feelings of nausea, vomiting, fever, or chills. Progress of Wound: Patient presents for follow up. Patient had epifix applied last week and has left his dressing intact. Patient states that he continues to try and keep all weight off of his heel the best he can, and is wearing the shoe his son modified for him to keep all of the pressure off the ulcer site. He says if he has to move he tries to keep all of his pressure to his forefoot. Patient denies any current feelings of nausea, vomiting, fever, or chills. - Physical Exam Vital Signs Temp Pulse Resp BP 96.8 F L 90 18 141/80 H 02/02/18 08:40 02/02/18 08:40 02/02/18 08:40 02/02/18 08:40 General: Alert, Oriented x3, Cooperative, No apparent distress Extremities: Capillary Refill Less than 3 Seconds, No Calf Tenderness - Negative Alicia and Bishop sign, Diminished Peripheral Pulses - DP PT pulses nonpalpable due to slight edema, Edema - Slight lower extremity edema appreciated Skin: Ulcer/ Wound - Ulcer noted to the left posterior heel with fat layer exposed. There continues to be improvement of the ulcer site. The base continues to be a mixture of adherent slough, fibrin, biofilm as well as granulation tissue. Slight hyperkeratotic rim appreciated surrounding this area as well. There continues to be no purulence, no malodor, no extending cellulitis, no increased warmth noted. Wound Measurements and Assessment WC - Nurse 1 - General Ulcer Measurement Start: 01/05/18 10:02 Freq: Status: Active Protocol: Activity Type Activity Date Activity User E-Sign Co-Sign Detail Recorded Client Recorded Date Recorded By Document 02/02/18 08:40 DL [id number] 02/02/18 08:52 DL 02/02/18 08:40 Wound Center Nurse 1 [Ulcer Assessment] 1-left heel -Current Size (cm) - Length 0.6 -Current Size (cm) - Width 0.7 -Current Size (cm) - Depth 0.1 -Total Square Cm 0.42 -Photo Taken No -Exudate Amt Small (1-33%) -Exudate Type Serosanguineous -Wound Margin Flat & Intact -Granulation Amt Large (67-100%) -Granulation Quality Red -Necrosis Amt Small (1-33%) -Necrotic Tissue Type Adherent Slough -Structure Exposed N/A -Texture (Radha-wound Skin Appearance) No Abnormality Localized Edema -Moisture (Radha-wound Skin Appearance Maceration ) -Color (Radha-wound Skin Appearance) No Abnormality -Temperature (Radha-wound Skin No Abnormality Appearance) (Pt Warm) -Ulcer Cleansing Rinsed/ Irrigated with Saline -Foul Odor after Cleansing No -Anesthetic Used 4% Lidocaine Solution [Edema Assessment] -Right Calf (cm) 39.6 -Right Ankle (cm) 27.2 -Left Calf (cm) 38 -Left Ankle (cm) 24.5 WC - Nurse 2 - General Ulcer CM Notes Start: 01/05/18 10:02 Freq: Status: Active Protocol: Activity Type Activity Date Activity User E-Sign Co-Sign Detail Recorded Client Recorded Date Recorded By Document 02/02/18 09:38 JS [id number] 02/02/18 09:51 JS 02/02/18 09:38 Wound Center Nurse 2 [Procedure/Treatment] 1-left heel -Time 09:47 -Correct Patient Yes -Correct Side, Site, Position Yes -Correct Procedure Yes -Procedure Performed Yes -Type of Procedure Debridement -Clinical Debridement Subcutaneous -Post Debridement Size (cm) - Length 0.9 -Post Debridement Size (cm) - Width 0.7 -Post Debridement Size (cm) - Depth 0.3 -Total Square Cm 0.63 -Wound/Ulcer Outcome Not Healed -Ulcer Cleansing Rinsed/ Irrigated with Saline -Foul Odor after Cleansing No -Type of bioengineered Tissue EPIFIX -Expiration Date 11/03/22 -Product Lot Number [id number] -Percent Used 100 -Saline Lot Number [id number] -Topical Lidocaine (%) 4 -Lidocaine (ml) 5 -Bleeding Controlled with NA -Treatment Response Procedure Tolerated Well [See Physician Procedure note for Specifics] Pain Scale: 0-10 Numeric [Pain] -Is Patient Pain Free? Yes Musculoskeletal: Tenderness - Slight tenderness appreciated to the left heel ulcer Neurological: Sensory exam intact to light touch and pain Psych/Mental Status: Normal Affect, Appropriate Debridement Note Post-Debridement Measurements/Treatment WC - Nurse 2 - General Ulcer CM Notes Start: 01/05/18 10:02 Freq: Status: Active Protocol: Activity Type Activity Date Activity User E-Sign Co-Sign Detail Recorded Client Recorded Date Recorded By Document 01/05/18 10:21 MW [id number] 01/05/18 10:29 MW Document 01/12/18 10:26 MW [id number] 01/12/18 10:32 MW Document 01/19/18 09:35 JS [id number] 01/19/18 09:37 JS Document 01/26/18 09:35 [id number] 01/26/18 09:39 JS Document 02/02/18 09:38 [id number] 02/02/18 09:51 JS 01/05/18 01/12/18 01/19/18 10:21 10:26 09:35 Wound Center Nurse 2 1-left heel -Time 10:22 10:30 09:35 -Correct Patient Yes Yes Yes -Correct Side, Site, Position Yes Yes Yes -Correct Procedure Yes Yes Yes -Procedure Performed Yes Yes Yes -Type of Procedure Debridement Debridement Debridement -Clinical Debridement Subcutaneous Subcutaneous Subcutaneous -Post Debridement Size (cm) - Length 1.2 1.1 1.4 -Post Debridement Size (cm) - Width 1.1 1.0 1.0 -Post Debridement Size (cm) - Depth 0.4 0.4 0.4 -Total Square Cm 1.32 1.10 1.40 -Wound/Ulcer Outcome Not Healed Not Healed Not Healed -Ulcer Cleansing Rinsed/ Rinsed/ Rinsed/ Irrigated with Irrigated with Irrigated with Saline Saline Saline -Foul Odor after Cleansing No No No -Bioengineered Tissue Yes -Type of bioengineered Tissue EPIFIX EPIFIX EPIFIX -Expiration Date 09/05/22 09/05/22 11/03/22 -Product Lot Number [id number] 008 -Percent Used 100 100 100 -Saline Lot Number [id number] -Topical Lidocaine (%) 4 -Lidocaine (ml) 5 -Bleeding Controlled with Pressure Pressure NA -Treatment Response Procedure Procedure Procedure Tolerated Well Tolerated Well Tolerated Well Pain Scale: 0-10 Numeric Is Patient Pain Free? Yes Yes Yes 01/26/18 02/02/18 09:35 09:38 Wound Center Nurse 2 1-left heel -Time 09:35 09:47 -Correct Patient Yes Yes -Correct Side, Site, Position Yes Yes -Correct Procedure Yes Yes -Procedure Performed Yes Yes -Type of Procedure Debridement Debridement -Clinical Debridement Subcutaneous Subcutaneous -Post Debridement Size (cm) - Length 1.1 0.9 -Post Debridement Size (cm) - Width 0.7 0.7 -Post Debridement Size (cm) - Depth 0.4 0.3 -Total Square Cm 0.77 0.63 -Wound/Ulcer Outcome Not Healed Not Healed -Ulcer Cleansing Rinsed/ Rinsed/ Irrigated with Irrigated with Saline Saline -Foul Odor after Cleansing No No -Bioengineered Tissue -Type of bioengineered Tissue EPIFIX EPIFIX -Expiration Date 11/03/22 11/03/22 -Product Lot Number [id number] -Percent Used 100 100 -Saline Lot Number [id number] -Topical Lidocaine (%) 4 4 -Lidocaine (ml) 5 5 -Bleeding Controlled with NA NA -Treatment Response Procedure Procedure Tolerated Well Tolerated Well Pain Scale: 0-10 Numeric Is Patient Pain Free? Yes Yes Wound debrided: Left posterior heel Laterality: Left Type of Debridement: Excisional debridement Anesthesia Used: 4% Lidocaine Solution Depth: in the subcutaneous layer Percentage of wound debrided: 100 Instrument Used: #15 blade Tissue Removed: Adherent slough, fibrin, biofilm, hyperkeratotic tissue Severity: Fat Layer Exposed Amount of bleeding with debridement: Mild Bleeding Controlled with: Pressure Patient tolerated procedure well Assessment/Plan Active Problems Chronic ulcer of left foot with fat layer exposed (Acute) Assessment: Ulcer to left heel, lower extremity edema, pvd Plan: Patient was examined and evaluated again today. A subcutaneous debridement was again performed as noted in the clinical panel. The ulcer site was then carefully cleansed. The sixth epifix application was applied to the ulcer today. This was followed by hydrogel, wound veil Steri-Strips and a dry sterile dressing. Patient was instructed to keep the dressing clean dry and intact from the wound veil dressing and lower and that he could change the outer dressing above this layer if needed. He was instructed to keep this dressing intact for the next week until his next visit here. Keeping the heel offloaded at all times was again stressed to the patient. He is to conintue to wear the modified shoe with the heel cut out in order to place to pressure to the area. He is to continue to float the heel over a pillow under his calves with absolutely no pressure to the heel while seated or in bed. He is to only put pressure to his left forefoot if he needs to stand for any reason. He says he understands this. I still continue to question patient's complete compliance with offloading. I recommend a diet high in protein to help with wound healing. Patient was educated on all signs and symptoms of local and systemic infection, and he is instructed to go to the emergency room immediately should he notice any. All other questions were answered to the patient's satisfaction. Patient will follow-up in clinic in 1 week or sooner if needed.
--- NOTE | 2018-02-02 11:54 | PN.PCM_ITS ---
(1) Chronic ulcer of left foot with fat layer exposed Status: Acute Current Visit: Yes Code(s): L97.522 - Non-pressure chronic ulcer of other part of left foot with fat layer exposed (2) PVD (peripheral vascular disease) Status: Acute Current Visit: No Code(s): I73.9 - Peripheral vascular disease , unspecified (3) Lower extremity edema Status: Acute Current Visit: No Code(s): R60.0 - Localized edema (4) Delayed wound healing Status: Acute Current Visit: No Code(s): T14.8XXD - Other injury of unspecified body region, subsequent encounter (5) Malnutrition Status: Suspected Current Visit: No Code(s): E46 - Unspecified protein- calorie malnutrition (6) 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 Patient states that he noticed a blister starting on the back of his heel over 3 months ago. According to the patient, he did nothing about the blister and did not treat or dress the area. He says that both of his legs had been swelling as well and he was being treated with a water pill. He says that as the swelling was going down his blister popped. He said he still did not do anything to treat the area. He said he was seen recently by Jak Fritz who sent the patient to wound care center to be treated. The patient says he continues to walk on the area and was not told that he wasn't supposed to. He says his son helps him and can help with dressing changes if needed. He says he has not noticed any redness, bad smells, or any pus from the area. He currently denies any feelings of nausea, vomiting, fever, or chills. Progress of Wound: Patient presents for follow up. Patient had epifix applied last week and has left his dressing intact. Patient states that he continues to try and keep all weight off of his heel the best he can, and is wearing the shoe his son modified for him to keep all of the pressure off the ulcer site. He says if he has to move he tries to keep all of his pressure to his forefoot. Patient denies any current feelings of nausea, vomiting, fever, or chills. - Physical Exam Vital Signs Temp Pulse Resp BP 96.8 F L 90 18 141/80 H 02/02/18 08:40 02/02/18 08:40 02/02/18 08:40 02/02/18 08:40 General: Alert, Oriented x3, Cooperative, No apparent distress Extremities: Capillary Refill Less than 3 Seconds, No Calf Tenderness - Negative Alicia and Bishop sign, Diminished Peripheral Pulses - DP PT pulses nonpalpable due to slight edema, Edema - Slight lower extremity edema appreciated Skin: Ulcer/ Wound - Ulcer noted to the left posterior heel with fat layer exposed. There continues to be improvement of the ulcer site. The base continues to be a mixture of adherent slough, fibrin, biofilm as well as granulation tissue. Slight hyperkeratotic rim appreciated surrounding this area as well. There continues to be no purulence, no malodor, no extending cellulitis, no increased warmth noted. Wound Measurements and Assessment WC - Nurse 1 - General Ulcer Measurement Start: 01/05/18 10:02 Freq: Status: Active Protocol: Activity Type Activity Date Activity User E-Sign Co-Sign Detail Recorded Client Recorded Date Recorded By Document 02/02/18 08:40 DL [id number] 02/02/18 08:52 DL 02/02/18 08:40 Wound Center Nurse 1 [Ulcer Assessment] 1-left heel -Current Size (cm) - Length 0.6 -Current Size (cm) - Width 0.7 -Current Size (cm) - Depth 0.1 -Total Square Cm 0.42 -Photo Taken No -Exudate Amt Small (1-33%) -Exudate Type Serosanguineous -Wound Margin Flat & Intact -Granulation Amt Large (67-100%) -Granulation Quality Red -Necrosis Amt Small (1-33%) -Necrotic Tissue Type Adherent Slough -Structure Exposed N/A -Texture (Radha-wound Skin Appearance) No Abnormality Localized Edema -Moisture (Radha-wound Skin Appearance Maceration ) -Color (Radha-wound Skin Appearance) No Abnormality -Temperature (Radha-wound Skin No Abnormality Appearance) (Pt Warm) -Ulcer Cleansing Rinsed/ Irrigated with Saline -Foul Odor after Cleansing No -Anesthetic Used 4% Lidocaine Solution [Edema Assessment] -Right Calf (cm) 39.6 -Right Ankle (cm) 27.2 -Left Calf (cm) 38 -Left Ankle (cm) 24.5 WC - Nurse 2 - General Ulcer CM Notes Start: 01/05/18 10:02 Freq: Status: Active Protocol: Activity Type Activity Date Activity User E-Sign Co-Sign Detail Recorded Client Recorded Date Recorded By Document 02/02/18 09:38 JS [id number] 02/02/18 09:51 JS 02/02/18 09:38 Wound Center Nurse 2 [Procedure/Treatment] 1-left heel -Time 09:47 -Correct Patient Yes -Correct Side, Site, Position Yes -Correct Procedure Yes -Procedure Performed Yes -Type of Procedure Debridement -Clinical Debridement Subcutaneous -Post Debridement Size (cm) - Length 0.9 -Post Debridement Size (cm) - Width 0.7 -Post Debridement Size (cm) - Depth 0.3 -Total Square Cm 0.63 -Wound/Ulcer Outcome Not Healed -Ulcer Cleansing Rinsed/ Irrigated with Saline -Foul Odor after Cleansing No -Type of bioengineered Tissue EPIFIX -Expiration Date 11/03/22 -Product Lot Number [id number] -Percent Used 100 -Saline Lot Number [id number] -Topical Lidocaine (%) 4 -Lidocaine (ml) 5 -Bleeding Controlled with NA -Treatment Response Procedure Tolerated Well [See Physician Procedure note for Specifics] Pain Scale: 0-10 Numeric [Pain] -Is Patient Pain Free? Yes Musculoskeletal: Tenderness - Slight tenderness appreciated to the left heel ulcer Neurological: Sensory exam intact to light touch and pain Psych/Mental Status: Normal Affect, Appropriate Debridement Note Post-Debridement Measurements/Treatment WC - Nurse 2 - General Ulcer CM Notes Start: 01/05/18 10:02 Freq: Status: Active Protocol: Activity Type Activity Date Activity User E-Sign Co-Sign Detail Recorded Client Recorded Date Recorded By Document 01/05/18 10:21 MW [id number] 01/05/18 10:29 MW Document 01/12/18 10:26 MW [id number] 01/12/18 10:32 MW Document 01/19/18 09:35 JS [id number] 01/19/18 09:37 JS Document 01/26/18 09:35 [id number] 01/26/18 09:39 JS Document 02/02/18 09:38 [id number] 02/02/18 09:51 JS 01/05/18 01/12/18 01/19/18 10:21 10:26 09:35 Wound Center Nurse 2 1-left heel -Time 10:22 10:30 09:35 -Correct Patient Yes Yes Yes -Correct Side, Site, Position Yes Yes Yes -Correct Procedure Yes Yes Yes -Procedure Performed Yes Yes Yes -Type of Procedure Debridement Debridement Debridement -Clinical Debridement Subcutaneous Subcutaneous Subcutaneous -Post Debridement Size (cm) - Length 1.2 1.1 1.4 -Post Debridement Size (cm) - Width 1.1 1.0 1.0 -Post Debridement Size (cm) - Depth 0.4 0.4 0.4 -Total Square Cm 1.32 1.10 1.40 -Wound/Ulcer Outcome Not Healed Not Healed Not Healed -Ulcer Cleansing Rinsed/ Rinsed/ Rinsed/ Irrigated with Irrigated with Irrigated with Saline Saline Saline -Foul Odor after Cleansing No No No -Bioengineered Tissue Yes -Type of bioengineered Tissue EPIFIX EPIFIX EPIFIX -Expiration Date 09/05/22 09/05/22 11/03/22 -Product Lot Number [id number] 008 -Percent Used 100 100 100 -Saline Lot Number [id number] -Topical Lidocaine (%) 4 -Lidocaine (ml) 5 -Bleeding Controlled with Pressure Pressure NA -Treatment Response Procedure Procedure Procedure Tolerated Well Tolerated Well Tolerated Well Pain Scale: 0-10 Numeric Is Patient Pain Free? Yes Yes Yes 01/26/18 02/02/18 09:35 09:38 Wound Center Nurse 2 1-left heel -Time 09:35 09:47 -Correct Patient Yes Yes -Correct Side, Site, Position Yes Yes -Correct Procedure Yes Yes -Procedure Performed Yes Yes -Type of Procedure Debridement Debridement -Clinical Debridement Subcutaneous Subcutaneous -Post Debridement Size (cm) - Length 1.1 0.9 -Post Debridement Size (cm) - Width 0.7 0.7 -Post Debridement Size (cm) - Depth 0.4 0.3 -Total Square Cm 0.77 0.63 -Wound/Ulcer Outcome Not Healed Not Healed -Ulcer Cleansing Rinsed/ Rinsed/ Irrigated with Irrigated with Saline Saline -Foul Odor after Cleansing No No -Bioengineered Tissue -Type of bioengineered Tissue EPIFIX EPIFIX -Expiration Date 11/03/22 11/03/22 -Product Lot Number [id number] -Percent Used 100 100 -Saline Lot Number [id number] -Topical Lidocaine (%) 4 4 -Lidocaine (ml) 5 5 -Bleeding Controlled with NA NA -Treatment Response Procedure Procedure Tolerated Well Tolerated Well Pain Scale: 0-10 Numeric Is Patient Pain Free? Yes Yes Wound debrided: Left posterior heel Laterality: Left Type of Debridement: Excisional debridement Anesthesia Used: 4% Lidocaine Solution Depth: in the subcutaneous layer Percentage of wound debrided: 100 Instrument Used: #15 blade Tissue Removed: Adherent slough, fibrin, biofilm, hyperkeratotic tissue Severity: Fat Layer Exposed Amount of bleeding with debridement: Mild Bleeding Controlled with: Pressure Patient tolerated procedure well Assessment/Plan Active Problems Chronic ulcer of left foot with fat layer exposed (Acute) Assessment: Ulcer to left heel, lower extremity edema, pvd Plan: Patient was examined and evaluated again today. A subcutaneous debridement was again performed as noted in the clinical panel. The ulcer site was then carefully cleansed. The sixth epifix application was applied to the ulcer today. This was followed by hydrogel, wound veil Steri-Strips and a dry sterile dressing. Patient was instructed to keep the dressing clean dry and intact from the wound veil dressing and lower and that he could change the outer dressing above this layer if needed. He was instructed to keep this dressing intact for the next week until his next visit here. Keeping the heel offloaded at all times was again stressed to the patient. He is to conintue to wear the modified shoe with the heel cut out in order to place to pressure to the area. He is to continue to float the heel over a pillow under his calves with absolutely no pressure to the heel while seated or in bed. He is to only put pressure to his left forefoot if he needs to stand for any reason. He says he understands this. I still continue to question patient's complete compliance with offloading. I recommend a diet high in protein to help with wound healing. Patient was educated on all signs and symptoms of local and systemic infection, and he is instructed to go to the emergency room immediately should he notice any. All other questions were answered to the patient's satisfaction. Patient will follow-up in clinic in 1 week or sooner if needed.
== END 2018-02-02 23:59 ==
LOC: WC 08:30
PROVIDERS: Visit Provider Podiatrist
DX: I73.9 Peripheral vascular disease, unspecified (principal); R60.0 Localized edema; L97.422 Non-pressure chronic ulcer of left heel and midfoot with fat layer exposed; M79.89 Other specified soft tissue disorders
CPT/HCPCS: 15275; Q4131

== ENCOUNTER → 2018-02-28 11:04 | Outpatient (CLI) | payer MEDICARE, OTHER, SELFPAY ==
--- NOTE | 2018-02-28 11:09 | ECHOD_ITS ---
Reason For Study: CHF, HTN, EDEMA Procedure This was a 2D Doppler, Color Flow transthoracic echocardiogram. The exam was of fair technical quality due to diminished acoustic windows. The study was technically difficult. Exam performed in department. Left Ventricle Normal LV size. Left ventricular systolic function is normal. The estimated ejection fraction is 65 %. There is evidence of diastolic dysfunction. No regional wall motion abnormalities noted. Right Ventricle Normal RV size. Normal systolic function. Atria The left atrium is mildly enlarged. Normal right atrium. No doppler evidence for ASD. Mitral Valve There is mild mitral annular calcification. Normal mitral valve. Mild (1+) mitral valve insufficiency. Tricuspid Valve Normal tricuspid valve. Trivial tricuspid valve insufficiency. Right ventricular systolic pressure estimated to be 27 mmHg. Aortic Valve Trisinus/trileaflet aortic valve. Mild focal aortic valve calcification. Pulmonic Valve The pulmonic valve is not well visualized. Great Vessels Normal sized aortic root. Pericardium/Pleural No pericardial effusion. MMode/2D Measurements & Calculations LVIDd: 5.2 cm IVSd: 1.2 cm Ao root diam: 3.5 cm LVIDs: 3.0 cm LVPWd: 1.4 cm LA dimension: 4.4 cm RVDd: 2.7 cm FS: 42.0 % LAV(MOD-bp): 92.9 ml LVAd ap4: 41.8 cm2 SV(MOD-sp4): 100.2 ml LAV(MOD-bp) Indexed: 43.6 ml/m2 EDV(MOD-sp4): 151.7 ml LAV(MOD-sp2): 112.2 ml EDV(sp4-el): 159.2 ml LAV(MOD-sp4): 71.0 ml LVAs ap4: 21.7 cm2 ESV(MOD-sp4): 51.5 ml ESV(sp4-el): 52.0 ml EF(MOD-sp4): 66.1 % EF(sp4-el): 67.3 % SV(sp4-el): 107.2 ml LA A4 area: 22.1 cm2 RA A4 area: 20.2 cm2 Time Measurements MV dec time: 0.27 sec Doppler Measurements & Calculations MV E max geo: 62.4 cm/sec Lat Peak E' Geo: 3.9 cm/sec Med Peak E' Geo: 4.5 cm/sec MV A max geo: 95.3 cm/sec E/E' lat: 15.8 E/E' med: 13.8 MV E/A: 0.65 Ao V2 max: 166.7 cm/sec LV V1 max: 136.5 cm/sec PA V2 max: 94.3 cm/sec Ao max P.1 mmHg LV V1 max P.5 mmHg TR max geo: 242.4 cm/sec TR max P.5 mmHg Interpretation Summary The study was technically difficult. Left ventricular systolic function is normal. The estimated ejection fraction is 65 %. The left atrium is mildly enlarged. There is mild mitral annular calcification. Mild (1+) mitral valve insufficiency. Trivial tricuspid valve insufficiency. Mild focal aortic valve calcification. Right ventricular systolic pressure estimated to be 27 mmHg. There is evidence of diastolic dysfunction. Ordering Physician: Guillermo Barreto Referring Physician: Guillermo Barreto Performed By: Rufina Maxwell RDCS
== END ==
PROVIDERS: Visit Provider Internal Medicine Cardiovascular Disease
DX: I50.9 Heart failure, unspecified (principal); R06.09 Other forms of dyspnea; I10 Essential (primary) hypertension; R60.9 Edema, unspecified
CPT/HCPCS: 93306

== ENCOUNTER 2018-03-02 08:30 | Outpatient (RCR) | payer MEDICARE, OTHER, SELFPAY ==
[2018-02-03 00:51] VITALS: BP 141/80; PULSE 90; RESP 18; TEMP 36
[2018-02-16 08:15] VITALS: BP 152/78; PULSE 79; RESP 18; TEMP 36.2
--- NOTE | 2018-02-16 08:54 | PN.PCM_ITS ---
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 Status: Acute Current Visit: No Code(s): L97.422 - Non-pressure chronic ulcer of left heel and midfoot with fat layer exposed (2) Lower extremity edema Status: Acute Current Visit: No Code(s): R60.0 - Localized edema (3) PVD (peripheral vascular disease) Status: Acute Current Visit: No Code(s): I73.9 - Peripheral vascular disease , unspecified (4) Delayed wound healing Status: Acute Current Visit: No Code(s): T14.8XXD - Other injury of unspecified body region, subsequent encounter Type of Wound Date of Service: 02/16/18 Chief Complaint: Ulcer to left heel History of Wound: Patient is a poor historian, and it is hard to get information from him. Patient states that he noticed a blister starting on the back of his heel over 3 months ago. According to the patient, he did nothing about the blister and did not treat or dress the area. He says that both of his legs had been swelling as well and he was being treated with a water pill. He says that as the swelling was going down his blister popped. He said he still did not do anything to treat the area. He said he was seen recently by Jak Fritz who sent the patient to wound care center to be treated. The patient says he continues to walk on the area and was not told that he wasn't supposed to. He says his son helps him and can help with dressing changes if needed. He says he has not noticed any redness, bad smells, or any pus from the area. He currently denies any feelings of nausea, vomiting, fever, or chills. Progress of Wound: Patient presents for follow up. Patient had epifix applied two weeks ago and has left his dressing intact. He missed last week due to conflicting appointments. Patient states that he continues to try and keep all weight off of his heel the best he can, and is wearing the shoe his son modified for him to keep all of the pressure off the ulcer site. He says if he has to move he tries to keep all of his pressure to his forefoot. Patient denies any current feelings of nausea, vomiting, fever, or chills. - Physical Exam Vital Signs Temp Pulse Resp BP 97.1 F L 79 18 152/78 H 02/16/18 08:15 02/16/18 08:15 02/16/18 08:15 02/16/18 08:15 General: Alert, Oriented x3, Cooperative, No apparent distress Extremities: Capillary Refill Less than 3 Seconds, No Calf Tenderness - negative gerard and santoyo sign, Diminished Peripheral Pulses - DP and PT pulses nonpalpable due to slight lower extremity edema, Edema - Slight lower extremity edema Skin: Ulcer/ Wound - Ulcer noted to the left posterior heel with fat layer exposed. The ulcer is stable since last seen two weeks ago. The base continues to be a mixture of adherent slough, fibrin, biofilm as well as granulation tissue. Slight hyperkeratotic rim appreciated surrounding this area as well. There continues to be no purulence, no malodor, no extending cellulitis, no increased warmth noted. Wound Measurements and Assessment WC - Nurse 1 - General Ulcer Measurement Start: 02/16/18 08:14 Freq: Status: Active Protocol: Activity Type Activity Date Activity User E-Sign Co-Sign Detail Recorded Client Recorded Date Recorded By Document 02/16/18 08:15 DL [id number] 02/16/18 08:24 DL 02/16/18 08:15 Wound Center Nurse 1 [Ulcer Assessment] 1-left heel -Current Size (cm) - Length 1 -Current Size (cm) - Width 1 -Current Size (cm) - Depth 0.1 -Total Square Cm 1 -Photo Taken No -Exudate Amt None Present (0 %) -Wound Margin Distinct, Outline Attached -Granulation Amt None Present (0 %) -Slough/Fibrin Yes -Necrosis Amt Large (67-100%) -Necrotic Tissue Type Eschar -Structure Exposed N/A -Texture (Radha-wound Skin Appearance) No Abnormality -Moisture (Radha-wound Skin Appearance No Abnormality ) -Color (Radha-wound Skin Appearance) No Abnormality -Temperature (Radha-wound Skin No Abnormality Appearance) (Pt Warm) -Ulcer Cleansing Wound Cleanser -Foul Odor after Cleansing No -Anesthetic Used 4% Lidocaine Solution [Edema Assessment] -Right Calf (cm) 40 -Right Ankle (cm) 26 -Left Calf (cm) 38 -Left Ankle (cm) 26 Musculoskeletal: Tenderness - Slight tenderness appreciated to the left heel ulcer Neurological: Sensory exam intact to light touch and pain Psych/Mental Status: Normal Affect, Appropriate Debridement Note Wound debrided: left posterior heel Laterality: Left Type of Debridement: Excisional debridement Anesthesia Used: 4% Lidocaine Solution Depth: in the subcutaneous layer Percentage of wound debrided: 100 Instrument Used: 5mm curette Tissue Removed: Adherent slough, fibrin, biofilm, hyperkeratotic tissue Severity: Fat Layer Exposed Amount of bleeding with debridement: Mild Bleeding Controlled with: Pressure Patient tolerated procedure well Assessment/Plan Assessment: Ulcer to left heel, lower extremity edema, pvd Plan: Patient was examined and evaluated again today, after missing his appointment last week. A subcutaneous debridement was again performed as noted in the clinical panel. The ulcer site was then carefully cleansed. The seventh epifix application was applied to the ulcer today. This was followed by hydrogel, wound veil Steri-Strips and a dry sterile dressing. Patient was instructed to keep the dressing clean dry and intact from the wound veil dressing and lower and that he could change the outer dressing above this layer if needed. He was instructed to keep this dressing intact for the next week until his next visit here. Keeping the heel offloaded at all times was again stressed to the patient. He is to conintue to wear the modified shoe with the heel cut out in order to place to pressure to the area. He is to continue to float the heel over a pillow under his calves with absolutely no pressure to the heel while seated or in bed. He is to only put pressure to his left forefoot if he needs to stand for any reason. He says he understands this. I still continue to question patient's complete compliance with offloading. I recommend a diet high in protein to help with wound healing. Patient was again shown the way to properly apply his tubigrips for compression. Patient was educated on all signs and symptoms of local and systemic infection, and he is instructed to go to the emergency room immediately should he notice any. All other questions were answered to the patient's satisfaction. Patient will follow-up in clinic in 1 week or sooner if needed.
[2018-03-02 08:59] VITALS: BP 162/75; PULSE 64; RESP 18; TEMP 36
--- NOTE | 2018-03-02 09:38 | PCM.WC.PN ---
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 Status: Acute Current Visit: No Code(s): L97.422 - Non-pressure chronic ulcer of left heel and midfoot with fat layer exposed (2) Lower extremity edema Status: Acute Current Visit: No Code(s): R60.0 - Localized edema (3) PVD (peripheral vascular disease) Status: Acute Current Visit: No Code(s): I73.9 - Peripheral vascular disease, unspecified (4) Delayed wound healing Status: Acute Current Visit: No Code(s): T14.8XXD - Other injury of unspecified body region, subsequent encounter Type of Wound Date of Service: 03/02/18 Chief Complaint: Ulcer to left heel History of Wound: Patient is a poor historian, and it is hard to get information from him. Patient states that he noticed a blister starting on the back of his heel over 3 months ago. According to the patient, he did nothing about the blister and did not treat or dress the area. He says that both of his legs had been swelling as well and he was being treated with a water pill. He says that as the swelling was going down his blister popped. He said he still did not do anything to treat the area. He said he was seen recently by Jak Fritz who sent the patient to wound care center to be treated. The patient says he continues to walk on the area and was not told that he wasn't supposed to. He says his son helps him and can help with dressing changes if needed. He says he has not noticed any redness, bad smells, or any pus from the area. He currently denies any feelings of nausea, vomiting, fever, or chills. Progress of Wound: Patient presents for follow up. Patient had epifix applied two weeks ago and has left his dressing intact. He missed last weeks appointment again. Patient states that he continues to try and keep all weight off of his heel the best he can, and is wearing the shoe his son modified for him to keep all of the pressure off the ulcer site. He says if he has to move he tries to keep all of his pressure to his forefoot. Patient denies any current feelings of nausea, vomiting, fever, or chills. - Physical Exam Vital Signs Temp Pulse Resp BP 96.8 F L 64 18 162/75 H 06/28/18 08:59 03/02/18 08:59 03/02/18 08:59 03/02/18 08:59 General: Alert, Oriented x3, Cooperative, No apparent distress Extremities: Capillary Refill Less than 3 Seconds, No Calf Tenderness - Negative Alicia and Bishop sign, Diminished Peripheral Pulses - DP and PT pulses nonpalpable due to slight lower extremity edema, Edema - Slight lower extremity edema Skin: Ulcer/ Wound - Ulcer noted to the left posterior heel with fat layer exposed. The ulcer has shown improvement since 2 weeks ago. The base continues to be a mixture of adherent slough, fibrin, biofilm as well as granular tissue. Very small amount of hyperkeratotic tissue surrounding the ulcer site. There continues to be no purulence, no malodor, no extending cellulitis, no increase in warmth appreciated to the heel at this time. Wound Measurements and Assessment WC - Nurse 1 - General Ulcer Measurement Start: 02/16/18 08:14 Freq: Status: Active Protocol: Activity Type Activity Date Activity User E-Sign Co-Sign Detail Recorded Client Recorded Date Recorded By Document 03/02/18 08:59 [id number] 03/02/18 09:02 03/02/18 08:59 Wound Center Nurse 1 [Ulcer Assessment] 1-left heel -Combined with other wound No -Current Size (cm) - Length 0.5 -Current Size (cm) - Width 0.5 -Current Size (cm) - Depth 0.1 -Total Square Cm 0.25 -Date of Last Picture (Recall this 03/02/18 field) -Photo Taken Yes -Epithelialization Small 1-33% -Tunneling No -Undermining/Tunneling No -Circular Undermining No -Classification - Thickness Full Thickness without Exposed Support Structure -Exudate Amt Small (1-33%) -Exudate Type Serosanguineous -Wound Margin Distinct, Outline Attached -Granulation Amt Large (67-100%) -Granulation Quality Fleming -Slough/Fibrin Yes -Necrosis Amt Small (1-33%) -Necrotic Tissue Type Adherent Slough -Structure Exposed Fascia Fat Layer Exposed -Texture (Radha-wound Skin Appearance) Callus Scarring -Moisture (Radha-wound Skin Appearance No Abnormality ) -Color (Radha-wound Skin Appearance) No Abnormality Ecchymosis -Tenderness on Palpation (Radha-wound No Skin Appearance) -Ulcer Cleansing Rinsed/ Irrigated with Saline -Foul Odor after Cleansing No -Anesthetic Used 5% Lidocaine Gel [Edema Assessment] -Lower Limb Edema Present Yes -Left Calf (cm) 38.0 -Left Ankle (cm) 26.0 - Nurse 2 - General Ulcer CM Notes Start: 02/16/18 08:14 Freq: Status: Active Protocol: Activity Type Activity Date Activity User E-Sign Co-Sign Detail Recorded Client Recorded Date Recorded By Document 03/02/18 09:19 [id number] 03/02/18 09:22 03/02/18 09:19 Wound Center Nurse 2 [Procedure/Treatment] 1-left heel -Time 09:19 -Correct Patient Yes -Correct Side, Site, Position Yes -Correct Procedure Yes -Procedure Performed Yes -Type of Procedure Debridement -Clinical Debridement Subcutaneous -Post Debridement Size (cm) - Length 0.8 -Post Debridement Size (cm) - Width 0.4 -Post Debridement Size (cm) - Depth 0.2 -Total Square Cm 0.32 -Wound/Ulcer Outcome Not Healed -Ulcer Cleansing Not Cleansed -Foul Odor after Cleansing No -Bioengineered Tissue Yes -Type of bioengineered Tissue EPIFIX -Expiration Date 12/04/22 -Product Lot Number [id number] -Percent Used 100 -Saline Lot Number [id number] -Topical Lidocaine (%) 4 -Bleeding Controlled with Pressure -Treatment Response Procedure Tolerated Well [See Physician Procedure note for Specifics] Pain Scale: 0-10 Numeric [Pain] -Is Patient Pain Free? Yes Musculoskeletal: Tenderness - Slight tenderness appreciated to the left heel an area of ulcer site Neurological: Sensory exam intact to light touch and pain Psych/Mental Status: Normal Affect, Appropriate Debridement Note Post-Debridement Measurements/Treatment - Nurse 2 - General Ulcer CM Notes Start: 02/16/18 08:14 Freq: Status: Active Protocol: Activity Type Activity Date Activity User E-Sign Co-Sign Detail Recorded Client Recorded Date Recorded By Document 02/16/18 08:49 [id number] 02/16/18 08:52 JS Document 03/02/18 09:19 [id number] 03/02/18 09:22 02/16/18 03/02/18 08:49 09:19 Wound Center Nurse 2 1-left heel -Time 08:49 09:19 -Correct Patient Yes Yes -Correct Side, Site, Position Yes Yes -Correct Procedure Yes Yes -Procedure Performed Yes Yes -Type of Procedure Debridement Debridement -Clinical Debridement Subcutaneous Subcutaneous -Post Debridement Size (cm) - Length 1.0 0.8 -Post Debridement Size (cm) - Width 0.9 0.4 -Post Debridement Size (cm) - Depth 0.4 0.2 -Total Square Cm 0.90 0.32 -Wound/Ulcer Outcome Not Healed Not Healed -Ulcer Cleansing Rinsed/ Not Cleansed Irrigated with Saline -Foul Odor after Cleansing No No -Bioengineered Tissue Yes Yes -Type of bioengineered Tissue EPIFIX EPIFIX -Expiration Date 12/04/22 12/04/22 -Product Lot Number [id number] -Percent Used 100 100 -Saline Lot Number [id number] -Topical Lidocaine (%) 4 4 -Lidocaine (ml) 5 -Bleeding Controlled with NA Pressure -Treatment Response Procedure Procedure Tolerated Well Tolerated Well Pain Scale: 0-10 Numeric Is Patient Pain Free? Yes Yes Wound debrided: Left posterior heel Laterality: Left Type of Debridement: Excisional debridement Anesthesia Used: 4% Lidocaine Solution Depth: in the subcutaneous layer Percentage of wound debrided: 100 Instrument Used: #15 blade Tissue Removed: Adherent slough, fibrin, biofilm, hyperkeratotic tissue Severity: Fat Layer Exposed Amount of bleeding with debridement: Mild Bleeding Controlled with: Pressure Patient tolerated procedure well Assessment/Plan Assessment: Ulcer to left heel, lower extremity edema, pvd Plan: Patient was examined and evaluated again today, after missing his appointment last week again. A subcutaneous debridement was again performed as noted in the clinical panel. The ulcer site was then carefully cleansed. Ulcer has shown another good improvement since last seen in clinic. The eighth epifix application was applied to the ulcer today. This was followed by hydrogel, wound veil Steri-Strips and a dry sterile dressing. Patient was instructed to keep the dressing clean dry and intact from the wound veil dressing and lower and that he could change the outer dressing above this layer if needed. He was instructed to keep this dressing intact for the next week until his next visit here. Keeping the heel offloaded at all times was again stressed to the patient. He is to conintue to wear the modified shoe with the heel cut out in order to place to pressure to the area. He is to continue to float the heel over a pillow under his calves with absolutely no pressure to the heel while seated or in bed. He is to only put pressure to his left forefoot if he needs to stand for any reason. He says he understands this. I still continue to question patient's complete compliance with offloading. I recommend a diet high in protein to help with wound healing. Patient was again shown the way to properly apply his tubigrips for compression. Patient was educated on all signs and symptoms of local and systemic infection, and he is instructed to go to the emergency room immediately should he notice any. All other questions were answered to the patient's satisfaction. Patient will follow-up in clinic in 1 week or sooner if needed.
--- NOTE | 2018-03-02 09:42 | PN.PCM_ITS ---
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 Status: Acute Current Visit: No Code(s): L97.422 - Non-pressure chronic ulcer of left heel and midfoot with fat layer exposed (2) Lower extremity edema Status: Acute Current Visit: No Code(s): R60.0 - Localized edema (3) PVD (peripheral vascular disease) Status: Acute Current Visit: No Code(s): I73.9 - Peripheral vascular disease , unspecified (4) Delayed wound healing Status: Acute Current Visit: No Code(s): T14.8XXD - Other injury of unspecified body region, subsequent encounter Type of Wound Date of Service: 03/02/18 Chief Complaint: Ulcer to left heel History of Wound: Patient is a poor historian, and it is hard to get information from him. Patient states that he noticed a blister starting on the back of his heel over 3 months ago. According to the patient, he did nothing about the blister and did not treat or dress the area. He says that both of his legs had been swelling as well and he was being treated with a water pill. He says that as the swelling was going down his blister popped. He said he still did not do anything to treat the area. He said he was seen recently by Jak Fritz who sent the patient to wound care center to be treated. The patient says he continues to walk on the area and was not told that he wasn't supposed to. He says his son helps him and can help with dressing changes if needed. He says he has not noticed any redness, bad smells, or any pus from the area. He currently denies any feelings of nausea, vomiting, fever, or chills. Progress of Wound: Patient presents for follow up. Patient had epifix applied two weeks ago and has left his dressing intact. He missed last weeks appointment again. Patient states that he continues to try and keep all weight off of his heel the best he can, and is wearing the shoe his son modified for him to keep all of the pressure off the ulcer site. He says if he has to move he tries to keep all of his pressure to his forefoot. Patient denies any current feelings of nausea, vomiting, fever, or chills. - Physical Exam Vital Signs Temp Pulse Resp BP 96.8 F L 64 18 162/75 H 06/28/18 08:59 03/02/18 08:59 03/02/18 08:59 03/02/18 08:59 General: Alert, Oriented x3, Cooperative, No apparent distress Extremities: Capillary Refill Less than 3 Seconds, No Calf Tenderness - Negative Alicia and Bishop sign, Diminished Peripheral Pulses - DP and PT pulses nonpalpable due to slight lower extremity edema, Edema - Slight lower extremity edema Skin: Ulcer/ Wound - Ulcer noted to the left posterior heel with fat layer exposed. The ulcer has shown improvement since 2 weeks ago. The base continues to be a mixture of adherent slough, fibrin, biofilm as well as granular tissue. Very small amount of hyperkeratotic tissue surrounding the ulcer site. There continues to be no purulence, no malodor, no extending cellulitis, no increase in warmth appreciated to the heel at this time. Wound Measurements and Assessment WC - Nurse 1 - General Ulcer Measurement Start: 02/16/18 08:14 Freq: Status: Active Protocol: Activity Type Activity Date Activity User E-Sign Co-Sign Detail Recorded Client Recorded Date Recorded By Document 03/02/18 08:59 [id number] 03/02/18 09:02 03/02/18 08:59 Wound Center Nurse 1 [Ulcer Assessment] 1-left heel -Combined with other wound No -Current Size (cm) - Length 0.5 -Current Size (cm) - Width 0.5 -Current Size (cm) - Depth 0.1 -Total Square Cm 0.25 -Date of Last Picture (Recall this 03/02/18 field) -Photo Taken Yes -Epithelialization Small 1-33% -Tunneling No -Undermining/Tunneling No -Circular Undermining No -Classification - Thickness Full Thickness without Exposed Support Structure -Exudate Amt Small (1-33%) -Exudate Type Serosanguineous -Wound Margin Distinct, Outline Attached -Granulation Amt Large (67-100%) -Granulation Quality [place] -Slough/Fibrin Yes -Necrosis Amt Small (1-33%) -Necrotic Tissue Type Adherent Slough -Structure Exposed Fascia Fat Layer Exposed -Texture (Radha-wound Skin Appearance) Callus Scarring -Moisture (Radha-wound Skin Appearance No Abnormality ) -Color (Radha-wound Skin Appearance) No Abnormality Ecchymosis -Tenderness on Palpation (Radha-wound No Skin Appearance) -Ulcer Cleansing Rinsed/ Irrigated with Saline -Foul Odor after Cleansing No -Anesthetic Used 5% Lidocaine Gel [Edema Assessment] -Lower Limb Edema Present Yes -Left Calf (cm) 38.0 -Left Ankle (cm) 26.0 - Nurse 2 - General Ulcer CM Notes Start: 02/16/18 08:14 Freq: Status: Active Protocol: Activity Type Activity Date Activity User E-Sign Co-Sign Detail Recorded Client Recorded Date Recorded By Document 03/02/18 09:19 [id number] 03/02/18 09:22 03/02/18 09:19 Wound Center Nurse 2 [Procedure/Treatment] 1-left heel -Time 09:19 -Correct Patient Yes -Correct Side, Site, Position Yes -Correct Procedure Yes -Procedure Performed Yes -Type of Procedure Debridement -Clinical Debridement Subcutaneous -Post Debridement Size (cm) - Length 0.8 -Post Debridement Size (cm) - Width 0.4 -Post Debridement Size (cm) - Depth 0.2 -Total Square Cm 0.32 -Wound/Ulcer Outcome Not Healed -Ulcer Cleansing Not Cleansed -Foul Odor after Cleansing No -Bioengineered Tissue Yes -Type of bioengineered Tissue EPIFIX -Expiration Date 12/04/22 -Product Lot Number [id number] -Percent Used 100 -Saline Lot Number [id number] -Topical Lidocaine (%) 4 -Bleeding Controlled with Pressure -Treatment Response Procedure Tolerated Well [See Physician Procedure note for Specifics] Pain Scale: 0-10 Numeric [Pain] -Is Patient Pain Free? Yes Musculoskeletal: Tenderness - Slight tenderness appreciated to the left heel an area of ulcer site Neurological: Sensory exam intact to light touch and pain Psych/Mental Status: Normal Affect, Appropriate Debridement Note Post-Debridement Measurements/Treatment - Nurse 2 - General Ulcer CM Notes Start: 02/16/18 08:14 Freq: Status: Active Protocol: Activity Type Activity Date Activity User E-Sign Co-Sign Detail Recorded Client Recorded Date Recorded By Document 02/16/18 08:49 [id number] 02/16/18 08:52 JS Document 03/02/18 09:19 [id number] 03/02/18 09:22 02/16/18 03/02/18 08:49 09:19 Wound Center Nurse 2 1-left heel -Time 08:49 09:19 -Correct Patient Yes Yes -Correct Side, Site, Position Yes Yes -Correct Procedure Yes Yes -Procedure Performed Yes Yes -Type of Procedure Debridement Debridement -Clinical Debridement Subcutaneous Subcutaneous -Post Debridement Size (cm) - Length 1.0 0.8 -Post Debridement Size (cm) - Width 0.9 0.4 -Post Debridement Size (cm) - Depth 0.4 0.2 -Total Square Cm 0.90 0.32 -Wound/Ulcer Outcome Not Healed Not Healed -Ulcer Cleansing Rinsed/ Not Cleansed Irrigated with Saline -Foul Odor after Cleansing No No -Bioengineered Tissue Yes Yes -Type of bioengineered Tissue EPIFIX EPIFIX -Expiration Date 12/04/22 12/04/22 -Product Lot Number [id number] -Percent Used 100 100 -Saline Lot Number [id number] -Topical Lidocaine (%) 4 4 -Lidocaine (ml) 5 -Bleeding Controlled with NA Pressure -Treatment Response Procedure Procedure Tolerated Well Tolerated Well Pain Scale: 0-10 Numeric Is Patient Pain Free? Yes Yes Wound debrided: Left posterior heel Laterality: Left Type of Debridement: Excisional debridement Anesthesia Used: 4% Lidocaine Solution Depth: in the subcutaneous layer Percentage of wound debrided: 100 Instrument Used: #15 blade Tissue Removed: Adherent slough, fibrin, biofilm, hyperkeratotic tissue Severity: Fat Layer Exposed Amount of bleeding with debridement: Mild Bleeding Controlled with: Pressure Patient tolerated procedure well Assessment/Plan Assessment: Ulcer to left heel, lower extremity edema, pvd Plan: Patient was examined and evaluated again today, after missing his appointment last week again. A subcutaneous debridement was again performed as noted in the clinical panel. The ulcer site was then carefully cleansed. Ulcer has shown another good improvement since last seen in clinic. The eighth epifix application was applied to the ulcer today. This was followed by hydrogel, wound veil Steri-Strips and a dry sterile dressing. Patient was instructed to keep the dressing clean dry and intact from the wound veil dressing and lower and that he could change the outer dressing above this layer if needed. He was instructed to keep this dressing intact for the next week until his next visit here. Keeping the heel offloaded at all times was again stressed to the patient. He is to conintue to wear the modified shoe with the heel cut out in order to place to pressure to the area. He is to continue to float the heel over a pillow under his calves with absolutely no pressure to the heel while seated or in bed. He is to only put pressure to his left forefoot if he needs to stand for any reason. He says he understands this. I still continue to question patient's complete compliance with offloading. I recommend a diet high in protein to help with wound healing. Patient was again shown the way to properly apply his tubigrips for compression. Patient was educated on all signs and symptoms of local and systemic infection, and he is instructed to go to the emergency room immediately should he notice any. All other questions were answered to the patient's satisfaction. Patient will follow-up in clinic in 1 week or sooner if needed.
== END 2018-03-04 23:59 ==
LOC: WC 08:30
PROVIDERS: Visit Provider Podiatrist
DX: I73.9 Peripheral vascular disease, unspecified (principal); L97.422 Non-pressure chronic ulcer of left heel and midfoot with fat layer exposed; R60.0 Localized edema
CPT/HCPCS: 15275; Q4131

== ENCOUNTER 2018-03-30 09:00 | Outpatient (RCR) | payer MEDICARE, OTHER, SELFPAY ==
[2018-03-05 00:45] VITALS: BP 162/75; PULSE 64; RESP 18; TEMP 36
[2018-03-09 10:14] VITALS: BP 149/72; PULSE 73; RESP 18; TEMP 37.1
--- NOTE | 2018-03-09 10:49 | PCM.WC.PN ---
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 Status: Acute Current Visit: No Code(s): L97.422 - Non-pressure chronic ulcer of left heel and midfoot with fat layer exposed (2) PVD (peripheral vascular disease) Status: Acute Current Visit: No Code(s): I73.9 - Peripheral vascular disease, unspecified (3) Lower extremity edema Status: Acute Current Visit: No Code(s): R60.0 - Localized edema (4) Delayed wound healing Status: Acute Current Visit: No Code(s): T14.8XXD - Other injury of unspecified body region, subsequent encounter Type of Wound Date of Service: 03/09/18 Chief Complaint: Ulcer to left heel History of Wound: Patient is a poor historian, and it is hard to get information from him. Patient states that he noticed a blister starting on the back of his heel over 3 months ago. According to the patient, he did nothing about the blister and did not treat or dress the area. He says that both of his legs had been swelling as well and he was being treated with a water pill. He says that as the swelling was going down his blister popped. He said he still did not do anything to treat the area. He said he was seen recently by Jak Fritz who sent the patient to wound care center to be treated. The patient says he continues to walk on the area and was not told that he wasn't supposed to. He says his son helps him and can help with dressing changes if needed. He says he has not noticed any redness, bad smells, or any pus from the area. He currently denies any feelings of nausea, vomiting, fever, or chills. Progress of Wound: Patient presents for follow up. Patient had epifix applied last week and has left his dressing intact. Patient states that he continues to try and keep all weight off of his heel the best he can, and is wearing the shoe his son modified for him to keep all of the pressure off the ulcer site. He says if he has to move he tries to keep all of his pressure to his forefoot. Patient denies any current feelings of nausea, vomiting, fever, or chills. - Physical Exam Vital Signs Temp Pulse Resp BP 98.7 F 73 18 149/72 H 03/09/18 10:14 03/09/18 10:14 03/09/18 10:14 03/09/18 10:14 General: Alert, Oriented x3, Cooperative, No apparent distress Extremities: Capillary Refill Less than 3 Seconds, No Calf Tenderness - Negative Alicia and Bishop sign, Diminished Peripheral Pulses - DP and PT pulses nonpalpable due to slight lower extremity edema, Edema - Slight lower extremity edema Skin: Ulcer/ Wound - Ulcer noted to the left posterior heel with fat layer exposed. The ulcer has shown improvement over the last week. The base continues to be a mixture of adherent slough, fibrin, biofilm, as well as granular tissue. Some hyperkeratotic tissue noted around the ulcer site as well. There continues to be no purulence, no malodor, no extending cellulitis, no increase in warmth appreciated to the heel at this time. Wound Measurements and Assessment WC - Nurse 1 - General Ulcer Measurement Start: 03/09/18 10:14 Freq: Status: Active Protocol: Activity Type Activity Date Activity User E-Sign Co-Sign Detail Recorded Client Recorded Date Recorded By Document 03/09/18 10:14 [id number] 03/09/18 10:16 03/09/18 10:14 Wound Center Nurse 1 [Ulcer Assessment] 1-left heel -Combined with other wound No -Current Size (cm) - Length 0.4 -Current Size (cm) - Width 0.2 -Current Size (cm) - Depth 0.1 -Total Square Cm 0.08 -Photo Taken No -Epithelialization Medium 34-66% -Tunneling No -Undermining/Tunneling No -Circular Undermining No -Classification - Thickness Full Thickness without Exposed Support Structure -Exudate Amt Small (1-33%) -Exudate Type Serosanguineous -Wound Margin Distinct, Outline Attached -Granulation Amt Large (67-100%) -Granulation Quality [place] -Slough/Fibrin Yes -Necrosis Amt Small (1-33%) -Necrotic Tissue Type Adherent Slough -Structure Exposed Fascia Fat Layer Exposed -Texture (Radha-wound Skin Appearance) Callus Scarring -Moisture (Radha-wound Skin Appearance Dry/Scaly ) -Color (Radha-wound Skin Appearance) No Abnormality -Temperature (Radha-wound Skin No Abnormality Appearance) (Pt Warm) -Tenderness on Palpation (Radha-wound No Skin Appearance) -Ulcer Cleansing Rinsed/ Irrigated with Saline -Foul Odor after Cleansing No -Anesthetic Used 4% Lidocaine Solution [Edema Assessment] -Lower Limb Edema Present Yes -Left Calf (cm) 38.0 -Left Ankle (cm) 28.5 - Nurse 2 - General Ulcer CM Notes Start: 03/09/18 10:14 Freq: Status: Active Protocol: Activity Type Activity Date Activity User E-Sign Co-Sign Detail Recorded Client Recorded Date Recorded By Document 03/09/18 10:19 [id number] 03/09/18 10:34 03/09/18 10:19 Wound Center Nurse 2 [Procedure/Treatment] 1-left heel -Time 10:19 -Correct Patient Yes -Correct Side, Site, Position Yes -Correct Procedure Yes -Procedure Performed Yes -Type of Procedure Debridement -Clinical Debridement Subcutaneous -Post Debridement Size (cm) - Length 0.4 -Post Debridement Size (cm) - Width 0.2 -Post Debridement Size (cm) - Depth 0.1 -Total Square Cm 0.08 -Wound/Ulcer Outcome Not Healed -Ulcer Cleansing Rinsed/ Irrigated with Saline -Foul Odor after Cleansing No -Bioengineered Tissue Yes -Type of bioengineered Tissue EPIFIX -Expiration Date 12/04/22 -Product Lot Number [id number] -Percent Used 100 -Saline Lot Number [id number] -Bleeding Controlled with Pressure -Treatment Response Procedure Tolerated Well [See Physician Procedure note for Specifics] Pain Scale: 0-10 Numeric [Pain] -Is Patient Pain Free? Yes Musculoskeletal: Tenderness - Very slight tenderness appreciated to the left heel in the area of the ulcer site Neurological: Sensory exam intact to light touch and pain Psych/Mental Status: Normal Affect, Appropriate Debridement Note Post-Debridement Measurements/Treatment - Nurse 2 - General Ulcer CM Notes Start: 03/09/18 10:14 Freq: Status: Active Protocol: Activity Type Activity Date Activity User E-Sign Co-Sign Detail Recorded Client Recorded Date Recorded By Document 03/09/18 10:19 [id number] 03/09/18 10:34 03/09/18 10:19 Wound Center Nurse 2 1-left heel -Time 10:19 -Correct Patient Yes -Correct Side, Site, Position Yes -Correct Procedure Yes -Procedure Performed Yes -Type of Procedure Debridement -Clinical Debridement Subcutaneous -Post Debridement Size (cm) - Length 0.4 -Post Debridement Size (cm) - Width 0.2 -Post Debridement Size (cm) - Depth 0.1 -Total Square Cm 0.08 -Wound/Ulcer Outcome Not Healed -Ulcer Cleansing Rinsed/ Irrigated with Saline -Foul Odor after Cleansing No -Bioengineered Tissue Yes -Type of bioengineered Tissue EPIFIX -Expiration Date 12/04/22 -Product Lot Number [id number] -Percent Used 100 -Saline Lot Number [id number] -Bleeding Controlled with Pressure -Treatment Response Procedure Tolerated Well Pain Scale: 0-10 Numeric Is Patient Pain Free? Yes Wound debrided: Left posterior heel Laterality: Left Type of Debridement: Excisional debridement Anesthesia Used: 4% Lidocaine Solution Depth: in the subcutaneous layer Percentage of wound debrided: 100 Instrument Used: #15 blade Tissue Removed: Adherent slough, fibrin, biofilm, hyperkeratotic tissue Severity: Fat Layer Exposed Amount of bleeding with debridement: Mild Bleeding Controlled with: Pressure Patient tolerated procedure well Assessment/Plan Assessment: Ulcer to left heel, lower extremity edema, pvd Plan: Patient was examined and evaluated again today. A subcutaneous debridement was again performed as noted in the clinical panel. The ulcer site was then carefully cleansed. Ulcer has shown another great improvement since last seen in clinic. The ninth epifix application was applied to the ulcer today. This was followed by hydrogel, wound veil Steri-Strips and a dry sterile dressing. Patient was instructed to keep the dressing clean dry and intact from the wound veil dressing and lower and that he could change the outer dressing above this layer if needed. He was instructed to keep this dressing intact for the next week until his next visit here. Keeping the heel offloaded at all times was again stressed to the patient. He is to conintue to wear the modified shoe with the heel cut out in order to place to pressure to the area. He is to continue to float the heel over a pillow under his calves with absolutely no pressure to the heel while seated or in bed. He is to only put pressure to his left forefoot if he needs to stand for any reason. He says he understands this. I still continue to question patient's complete compliance with offloading. I recommend a diet high in protein to help with wound healing. Patient was again shown the way to properly apply his tubigrips for compression. Patient was educated on all signs and symptoms of local and systemic infection, and he is instructed to go to the emergency room immediately should he notice any. All other questions were answered to the patient's satisfaction. Patient will follow-up in clinic in 1 week or sooner if needed.
--- NOTE | 2018-03-09 10:54 | PN.PCM_ITS ---
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 Status: Acute Current Visit: No Code(s): L97.422 - Non-pressure chronic ulcer of left heel and midfoot with fat layer exposed (2) PVD (peripheral vascular disease) Status: Acute Current Visit: No Code(s): I73.9 - Peripheral vascular disease , unspecified (3) Lower extremity edema Status: Acute Current Visit: No Code(s): R60.0 - Localized edema (4) Delayed wound healing Status: Acute Current Visit: No Code(s): T14.8XXD - Other injury of unspecified body region, subsequent encounter Type of Wound Date of Service: 03/09/18 Chief Complaint: Ulcer to left heel History of Wound: Patient is a poor historian, and it is hard to get information from him. Patient states that he noticed a blister starting on the back of his heel over 3 months ago. According to the patient, he did nothing about the blister and did not treat or dress the area. He says that both of his legs had been swelling as well and he was being treated with a water pill. He says that as the swelling was going down his blister popped. He said he still did not do anything to treat the area. He said he was seen recently by Jak Fritz who sent the patient to wound care center to be treated. The patient says he continues to walk on the area and was not told that he wasn't supposed to. He says his son helps him and can help with dressing changes if needed. He says he has not noticed any redness, bad smells, or any pus from the area. He currently denies any feelings of nausea, vomiting, fever, or chills. Progress of Wound: Patient presents for follow up. Patient had epifix applied last week and has left his dressing intact. Patient states that he continues to try and keep all weight off of his heel the best he can, and is wearing the shoe his son modified for him to keep all of the pressure off the ulcer site. He says if he has to move he tries to keep all of his pressure to his forefoot. Patient denies any current feelings of nausea, vomiting, fever, or chills. - Physical Exam Vital Signs Temp Pulse Resp BP 98.7 F 73 18 149/72 H 03/09/18 10:14 03/09/18 10:14 03/09/18 10:14 03/09/18 10:14 General: Alert, Oriented x3, Cooperative, No apparent distress Extremities: Capillary Refill Less than 3 Seconds, No Calf Tenderness - Negative Alicia and Bishop sign, Diminished Peripheral Pulses - DP and PT pulses nonpalpable due to slight lower extremity edema, Edema - Slight lower extremity edema Skin: Ulcer/ Wound - Ulcer noted to the left posterior heel with fat layer exposed. The ulcer has shown improvement over the last week. The base continues to be a mixture of adherent slough, fibrin, biofilm, as well as granular tissue. Some hyperkeratotic tissue noted around the ulcer site as well. There continues to be no purulence, no malodor, no extending cellulitis, no increase in warmth appreciated to the heel at this time. Wound Measurements and Assessment WC - Nurse 1 - General Ulcer Measurement Start: 03/09/18 10:14 Freq: Status: Active Protocol: Activity Type Activity Date Activity User E-Sign Co-Sign Detail Recorded Client Recorded Date Recorded By Document 03/09/18 10:14 [id number] 03/09/18 10:16 03/09/18 10:14 Wound Center Nurse 1 [Ulcer Assessment] 1-left heel -Combined with other wound No -Current Size (cm) - Length 0.4 -Current Size (cm) - Width 0.2 -Current Size (cm) - Depth 0.1 -Total Square Cm 0.08 -Photo Taken No -Epithelialization Medium 34-66% -Tunneling No -Undermining/Tunneling No -Circular Undermining No -Classification - Thickness Full Thickness without Exposed Support Structure -Exudate Amt Small (1-33%) -Exudate Type Serosanguineous -Wound Margin Distinct, Outline Attached -Granulation Amt Large (67-100%) -Granulation Quality [place] -Slough/Fibrin Yes -Necrosis Amt Small (1-33%) -Necrotic Tissue Type Adherent Slough -Structure Exposed Fascia Fat Layer Exposed -Texture (Radha-wound Skin Appearance) Callus Scarring -Moisture (Radha-wound Skin Appearance Dry/Scaly ) -Color (Radha-wound Skin Appearance) No Abnormality -Temperature (Radha-wound Skin No Abnormality Appearance) (Pt Warm) -Tenderness on Palpation (Radha-wound No Skin Appearance) -Ulcer Cleansing Rinsed/ Irrigated with Saline -Foul Odor after Cleansing No -Anesthetic Used 4% Lidocaine Solution [Edema Assessment] -Lower Limb Edema Present Yes -Left Calf (cm) 38.0 -Left Ankle (cm) 28.5 - Nurse 2 - General Ulcer CM Notes Start: 03/09/18 10:14 Freq: Status: Active Protocol: Activity Type Activity Date Activity User E-Sign Co-Sign Detail Recorded Client Recorded Date Recorded By Document 03/09/18 10:19 [id number] 03/09/18 10:34 03/09/18 10:19 Wound Center Nurse 2 [Procedure/Treatment] 1-left heel -Time 10:19 -Correct Patient Yes -Correct Side, Site, Position Yes -Correct Procedure Yes -Procedure Performed Yes -Type of Procedure Debridement -Clinical Debridement Subcutaneous -Post Debridement Size (cm) - Length 0.4 -Post Debridement Size (cm) - Width 0.2 -Post Debridement Size (cm) - Depth 0.1 -Total Square Cm 0.08 -Wound/Ulcer Outcome Not Healed -Ulcer Cleansing Rinsed/ Irrigated with Saline -Foul Odor after Cleansing No -Bioengineered Tissue Yes -Type of bioengineered Tissue EPIFIX -Expiration Date 12/04/22 -Product Lot Number [id number] -Percent Used 100 -Saline Lot Number [id number] -Bleeding Controlled with Pressure -Treatment Response Procedure Tolerated Well [See Physician Procedure note for Specifics] Pain Scale: 0-10 Numeric [Pain] -Is Patient Pain Free? Yes Musculoskeletal: Tenderness - Very slight tenderness appreciated to the left heel in the area of the ulcer site Neurological: Sensory exam intact to light touch and pain Psych/Mental Status: Normal Affect, Appropriate Debridement Note Post-Debridement Measurements/Treatment - Nurse 2 - General Ulcer CM Notes Start: 03/09/18 10:14 Freq: Status: Active Protocol: Activity Type Activity Date Activity User E-Sign Co-Sign Detail Recorded Client Recorded Date Recorded By Document 03/09/18 10:19 [id number] 03/09/18 10:34 03/09/18 10:19 Wound Center Nurse 2 1-left heel -Time 10:19 -Correct Patient Yes -Correct Side, Site, Position Yes -Correct Procedure Yes -Procedure Performed Yes -Type of Procedure Debridement -Clinical Debridement Subcutaneous -Post Debridement Size (cm) - Length 0.4 -Post Debridement Size (cm) - Width 0.2 -Post Debridement Size (cm) - Depth 0.1 -Total Square Cm 0.08 -Wound/Ulcer Outcome Not Healed -Ulcer Cleansing Rinsed/ Irrigated with Saline -Foul Odor after Cleansing No -Bioengineered Tissue Yes -Type of bioengineered Tissue EPIFIX -Expiration Date 12/04/22 -Product Lot Number [id number] -Percent Used 100 -Saline Lot Number [id number] -Bleeding Controlled with Pressure -Treatment Response Procedure Tolerated Well Pain Scale: 0-10 Numeric Is Patient Pain Free? Yes Wound debrided: Left posterior heel Laterality: Left Type of Debridement: Excisional debridement Anesthesia Used: 4% Lidocaine Solution Depth: in the subcutaneous layer Percentage of wound debrided: 100 Instrument Used: #15 blade Tissue Removed: Adherent slough, fibrin, biofilm, hyperkeratotic tissue Severity: Fat Layer Exposed Amount of bleeding with debridement: Mild Bleeding Controlled with: Pressure Patient tolerated procedure well Assessment/Plan Assessment: Ulcer to left heel, lower extremity edema, pvd Plan: Patient was examined and evaluated again today. A subcutaneous debridement was again performed as noted in the clinical panel. The ulcer site was then carefully cleansed. Ulcer has shown another great improvement since last seen in clinic. The ninth epifix application was applied to the ulcer today. This was followed by hydrogel, wound veil Steri-Strips and a dry sterile dressing. Patient was instructed to keep the dressing clean dry and intact from the wound veil dressing and lower and that he could change the outer dressing above this layer if needed. He was instructed to keep this dressing intact for the next week until his next visit here. Keeping the heel offloaded at all times was again stressed to the patient. He is to conintue to wear the modified shoe with the heel cut out in order to place to pressure to the area. He is to continue to float the heel over a pillow under his calves with absolutely no pressure to the heel while seated or in bed. He is to only put pressure to his left forefoot if he needs to stand for any reason. He says he understands this. I still continue to question patient's complete compliance with offloading. I recommend a diet high in protein to help with wound healing. Patient was again shown the way to properly apply his tubigrips for compression. Patient was educated on all signs and symptoms of local and systemic infection, and he is instructed to go to the emergency room immediately should he notice any. All other questions were answered to the patient's satisfaction. Patient will follow-up in clinic in 1 week or sooner if needed.
[2018-03-16 09:12] VITALS: BP 160/78; PULSE 71; RESP 18; TEMP 36.3
--- NOTE | 2018-03-16 09:28 | PCM.WC.PN ---
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 Patient states that he noticed a blister starting on the back of his heel over 3 months ago. According to the patient, he did nothing about the blister and did not treat or dress the area. He says that both of his legs had been swelling as well and he was being treated with a water pill. He says that as the swelling was going down his blister popped. He said he still did not do anything to treat the area. He said he was seen recently by Jak Fritz who sent the patient to wound care center to be treated. The patient says he continues to walk on the area and was not told that he wasn't supposed to. He says his son helps him and can help with dressing changes if needed. He says he has not noticed any redness, bad smells, or any pus from the area. He currently denies any feelings of nausea, vomiting, fever, or chills. Progress of Wound: Patient presents for follow up. Patient had epifix applied last week and has left his dressing intact. Patient states that he continues to try and keep all weight off of his heel the best he can, and is wearing the shoe his son modified for him to keep all of the pressure off the ulcer site. He says if he has to move he tries to keep all of his pressure to his forefoot. Patient denies any current feelings of nausea, vomiting, fever, or chills. - Physical Exam Vital Signs Temp Pulse Resp BP 97.3 F L 71 18 160/78 H 03/16/18 09:12 07/12/18 09:12 03/16/18 09:12 03/16/18 09:12 General: Alert, Oriented x3, Cooperative, No apparent distress Extremities: Capillary Refill Less than 3 Seconds, No Calf Tenderness - Negative Alicia and Bishop sign, Diminished Peripheral Pulses - DP and PT pulses nonpalpable due to slight lower extremity edema, Edema - Slight lower extremity edema Skin: Ulcer/ Wound - Ulcer to left posterior heel with fat layer exposed. The ulcer continues to show improvement. The base continues to be a mixture of adherent slough, fibrin as well as increasing granular tissue. Depth continues to show improvement as well. Slight hyperkeratotic tissue still noted around the ulcer periphery. There is no purulence, no malodor, no extending cellulitis, no increase in warmth, no probing, no tracking, and no undermining appreciated to the ulcer site. Wound Measurements and Assessment WC - Nurse 1 - General Ulcer Measurement Start: 03/09/18 10:14 Freq: Status: Active Protocol: Activity Type Activity Date Activity User E-Sign Co-Sign Detail Recorded Client Recorded Date Recorded By Document 03/16/18 09:12 [id number] 03/16/18 09:14 03/16/18 09:12 Wound Center Nurse 1 [Ulcer Assessment] 1-left heel -Combined with other wound No -Current Size (cm) - Length 0.2 -Current Size (cm) - Width 0.1 -Current Size (cm) - Depth 0.1 -Total Square Cm 0.02 -Photo Taken No -Epithelialization Small 1-33% -Tunneling No -Undermining/Tunneling No -Circular Undermining No -Classification - Thickness Full Thickness without Exposed Support Structure -Exudate Amt Small (1-33%) -Exudate Type Serosanguineous -Wound Margin Distinct, Outline Attached -Granulation Amt Small (1-33%) -Granulation Quality [place] -Slough/Fibrin Yes -Necrosis Amt Small (1-33%) -Necrotic Tissue Type Adherent Slough -Structure Exposed Fascia Fat Layer Exposed -Texture (Radha-wound Skin Appearance) Callus Scarring -Moisture (Radha-wound Skin Appearance Dry/Scaly ) -Color (Radha-wound Skin Appearance) No Abnormality Assessed -Temperature (Radha-wound Skin No Abnormality Appearance) (Pt Warm) -Tenderness on Palpation (Radha-wound No Skin Appearance) -Ulcer Cleansing Rinsed/ Irrigated with Saline -Foul Odor after Cleansing No -Anesthetic Used 4% Lidocaine Solution [Edema Assessment] -Lower Limb Edema Present Yes -Left Calf (cm) 37.5 -Left Ankle (cm) 28.0 - Nurse 2 - General Ulcer CM Notes Start: 03/09/18 10:14 Freq: Status: Active Protocol: Activity Type Activity Date Activity User E-Sign Co-Sign Detail Recorded Client Recorded Date Recorded By Document 03/16/18 09:18 [id number] 03/16/18 09:27 03/16/18 09:18 Wound Center Nurse 2 [Procedure/Treatment] 1-left heel -Time 09:19 -Correct Patient Yes -Correct Side, Site, Position Yes -Correct Procedure Yes -Procedure Performed Yes -Type of Procedure Debridement -Clinical Debridement Subcutaneous -Post Debridement Size (cm) - Length 0.5 -Post Debridement Size (cm) - Width 0.5 -Post Debridement Size (cm) - Depth 0.1 -Total Square Cm 0.25 -Wound/Ulcer Outcome Not Healed -Ulcer Cleansing Rinsed/ Irrigated with Saline -Foul Odor after Cleansing No -Bioengineered Tissue Yes -Type of bioengineered Tissue EPIFIX -Expiration Date 12/04/22 -Product Lot Number [id number] -Percent Used 100 -Saline Lot Number [id number] -Bleeding Controlled with NA -Treatment Response Procedure Tolerated Well [See Physician Procedure note for Specifics] Pain Scale: 0-10 Numeric [Pain] -Is Patient Pain Free? Yes Musculoskeletal: Tenderness - Slight tenderness to left heel and area of ulcer site Neurological: Sensory exam intact to light touch and pain Psych/Mental Status: Normal Affect, Appropriate Debridement Note Post-Debridement Measurements/Treatment - Nurse 2 - General Ulcer CM Notes Start: 03/09/18 10:14 Freq: Status: Active Protocol: Activity Type Activity Date Activity User E-Sign Co-Sign Detail Recorded Client Recorded Date Recorded By Document 03/09/18 10:19 [id number] 03/09/18 10:34 CS Document 03/16/18 09:18 [id number] 03/16/18 09:27 03/09/18 03/16/18 10:19 09:18 Wound Center Nurse 2 1-left heel -Time 10:19 09:19 -Correct Patient Yes Yes -Correct Side, Site, Position Yes Yes -Correct Procedure Yes Yes -Procedure Performed Yes Yes -Type of Procedure Debridement Debridement -Clinical Debridement Subcutaneous Subcutaneous -Post Debridement Size (cm) - Length 0.4 0.5 -Post Debridement Size (cm) - Width 0.2 0.5 -Post Debridement Size (cm) - Depth 0.1 0.1 -Total Square Cm 0.08 0.25 -Wound/Ulcer Outcome Not Healed Not Healed -Ulcer Cleansing Rinsed/ Rinsed/ Irrigated with Irrigated with Saline Saline -Foul Odor after Cleansing No No -Bioengineered Tissue Yes Yes -Type of bioengineered Tissue EPIFIX EPIFIX -Expiration Date 12/04/22 12/04/22 -Product Lot Number [id number] -Percent Used 100 100 -Saline Lot Number [id number] -Bleeding Controlled with Pressure NA -Treatment Response Procedure Procedure Tolerated Well Tolerated Well Pain Scale: 0-10 Numeric Is Patient Pain Free? Yes Yes Wound debrided: Left posterior heel Laterality: Left Type of Debridement: Excisional debridement Anesthesia Used: 4% Lidocaine Solution Depth: in the subcutaneous layer Percentage of wound debrided: 100 Instrument Used: #15 blade Tissue Removed: Adherent slough, fibrin, hyperkeratotic tissue Severity: Fat Layer Exposed Amount of bleeding with debridement: Mild Bleeding Controlled with: Pressure Patient tolerated procedure well Assessment/Plan Assessment: Ulcer to left heel, lower extremity edema, pvd Plan: Patient was examined and evaluated again today. A subcutaneous debridement was again performed as noted in the clinical panel. The ulcer site was then carefully cleansed. Ulcer has improved again in appearance this week. The tenth epifix application was applied to the ulcer today. This was followed by hydrogel, wound veil Steri-Strips and a dry sterile dressing. Patient was instructed to keep the dressing clean dry and intact from the wound veil dressing and lower and that he could change the outer dressing above this layer if needed. He was instructed to keep this dressing intact for the next week until his next visit here. Keeping the heel offloaded at all times was again stressed to the patient. He is to conintue to wear the modified shoe with the heel cut out in order to place to pressure to the area. He is to continue to float the heel over a pillow under his calves with absolutely no pressure to the heel while seated or in bed. He is to only put pressure to his left forefoot if he needs to stand for any reason. He says he understands this. I still continue to question patient's complete compliance with offloading. I recommend a diet high in protein to help with wound healing. Patient was again shown the way to properly apply his tubigrips for compression. Patient was educated on all signs and symptoms of local and systemic infection, and he is instructed to go to the emergency room immediately should he notice any. All other questions were answered to the patient's satisfaction. Patient will follow-up in clinic in 1 week or sooner if needed.
--- NOTE | 2018-03-16 09:33 | PN.PCM_ITS ---
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 Status: Acute Current Visit: No Code(s): L97.422 - Non-pressure chronic ulcer of left heel and midfoot with fat layer exposed (2) PVD (peripheral vascular disease) Status: Acute Current Visit: No Code(s): I73.9 - Peripheral vascular disease , unspecified (3) Lower extremity edema Status: Acute Current Visit: No Code(s): R60.0 - Localized edema (4) Delayed wound healing Status: Acute Current Visit: No Code(s): T14.8XXD - Other injury of unspecified body region, subsequent encounter Type of Wound Date of Service: 03/16/18 Chief Complaint: Ulcer to left heel History of Wound: Patient is a poor historian, and it is hard to get information from him. Patient states that he noticed a blister starting on the back of his heel over 3 months ago. According to the patient, he did nothing about the blister and did not treat or dress the area. He says that both of his legs had been swelling as well and he was being treated with a water pill. He says that as the swelling was going down his blister popped. He said he still did not do anything to treat the area. He said he was seen recently by Jak Fritz who sent the patient to wound care center to be treated. The patient says he continues to walk on the area and was not told that he wasn't supposed to. He says his son helps him and can help with dressing changes if needed. He says he has not noticed any redness, bad smells, or any pus from the area. He currently denies any feelings of nausea, vomiting, fever, or chills. Progress of Wound: Patient presents for follow up. Patient had epifix applied last week and has left his dressing intact. Patient states that he continues to try and keep all weight off of his heel the best he can, and is wearing the shoe his son modified for him to keep all of the pressure off the ulcer site. He says if he has to move he tries to keep all of his pressure to his forefoot. Patient denies any current feelings of nausea, vomiting, fever, or chills. - Physical Exam Vital Signs Temp Pulse Resp BP 97.3 F L 71 18 160/78 H 03/16/18 09:12 07/12/18 09:12 03/16/18 09:12 03/16/18 09:12 General: Alert, Oriented x3, Cooperative, No apparent distress Extremities: Capillary Refill Less than 3 Seconds, No Calf Tenderness - Negative Alicia and Bishop sign, Diminished Peripheral Pulses - DP and PT pulses nonpalpable due to slight lower extremity edema, Edema - Slight lower extremity edema Skin: Ulcer/ Wound - Ulcer to left posterior heel with fat layer exposed. The ulcer continues to show improvement. The base continues to be a mixture of adherent slough, fibrin as well as increasing granular tissue. Depth continues to show improvement as well. Slight hyperkeratotic tissue still noted around the ulcer periphery. There is no purulence, no malodor, no extending cellulitis , no increase in warmth, no probing, no tracking, and no undermining appreciated to the ulcer site. Wound Measurements and Assessment WC - Nurse 1 - General Ulcer Measurement Start: 03/09/18 10:14 Freq: Status: Active Protocol: Activity Type Activity Date Activity User E-Sign Co-Sign Detail Recorded Client Recorded Date Recorded By Document 03/16/18 09:12 [id number] 03/16/18 09:14 03/16/18 09:12 Wound Center Nurse 1 [Ulcer Assessment] 1-left heel -Combined with other wound No -Current Size (cm) - Length 0.2 -Current Size (cm) - Width 0.1 -Current Size (cm) - Depth 0.1 -Total Square Cm 0.02 -Photo Taken No -Epithelialization Small 1-33% -Tunneling No -Undermining/Tunneling No -Circular Undermining No -Classification - Thickness Full Thickness without Exposed Support Structure -Exudate Amt Small (1-33%) -Exudate Type Serosanguineous -Wound Margin Distinct, Outline Attached -Granulation Amt Small (1-33%) -Granulation Quality [place] -Slough/Fibrin Yes -Necrosis Amt Small (1-33%) -Necrotic Tissue Type Adherent Slough -Structure Exposed Fascia Fat Layer Exposed -Texture (Radha-wound Skin Appearance) Callus Scarring -Moisture (Radha-wound Skin Appearance Dry/Scaly ) -Color (Radha-wound Skin Appearance) No Abnormality Assessed -Temperature (Radha-wound Skin No Abnormality Appearance) (Pt Warm) -Tenderness on Palpation (Radha-wound No Skin Appearance) -Ulcer Cleansing Rinsed/ Irrigated with Saline -Foul Odor after Cleansing No -Anesthetic Used 4% Lidocaine Solution [Edema Assessment] -Lower Limb Edema Present Yes -Left Calf (cm) 37.5 -Left Ankle (cm) 28.0 - Nurse 2 - General Ulcer CM Notes Start: 03/09/18 10:14 Freq: Status: Active Protocol: Activity Type Activity Date Activity User E-Sign Co-Sign Detail Recorded Client Recorded Date Recorded By Document 03/16/18 09:18 [email or web address] 03/16/18 09:27 03/16/18 09:18 Wound Center Nurse 2 [Procedure/Treatment] 1-left heel -Time 09:19 -Correct Patient Yes -Correct Side, Site, Position Yes -Correct Procedure Yes -Procedure Performed Yes -Type of Procedure Debridement -Clinical Debridement Subcutaneous -Post Debridement Size (cm) - Length 0.5 -Post Debridement Size (cm) - Width 0.5 -Post Debridement Size (cm) - Depth 0.1 -Total Square Cm 0.25 -Wound/Ulcer Outcome Not Healed -Ulcer Cleansing Rinsed/ Irrigated with Saline -Foul Odor after Cleansing No -Bioengineered Tissue Yes -Type of bioengineered Tissue EPIFIX -Expiration Date 12/04/22 -Product Lot Number [id number] -Percent Used 100 -Saline Lot Number [id number] -Bleeding Controlled with NA -Treatment Response Procedure Tolerated Well [See Physician Procedure note for Specifics] Pain Scale: 0-10 Numeric [Pain] -Is Patient Pain Free? Yes Musculoskeletal: Tenderness - Slight tenderness to left heel and area of ulcer site Neurological: Sensory exam intact to light touch and pain Psych/Mental Status: Normal Affect, Appropriate Debridement Note Post-Debridement Measurements/Treatment - Nurse 2 - General Ulcer CM Notes Start: 03/09/18 10:14 Freq: Status: Active Protocol: Activity Type Activity Date Activity User E-Sign Co-Sign Detail Recorded Client Recorded Date Recorded By Document 03/09/18 10:19 [id number] 03/09/18 10:34 CS Document 03/16/18 09:18 [id number] 03/16/18 09:27 03/09/18 03/16/18 10:19 09:18 Wound Center Nurse 2 1-left heel -Time 10:19 09:19 -Correct Patient Yes Yes -Correct Side, Site, Position Yes Yes -Correct Procedure Yes Yes -Procedure Performed Yes Yes -Type of Procedure Debridement Debridement -Clinical Debridement Subcutaneous Subcutaneous -Post Debridement Size (cm) - Length 0.4 0.5 -Post Debridement Size (cm) - Width 0.2 0.5 -Post Debridement Size (cm) - Depth 0.1 0.1 -Total Square Cm 0.08 0.25 -Wound/Ulcer Outcome Not Healed Not Healed -Ulcer Cleansing Rinsed/ Rinsed/ Irrigated with Irrigated with Saline Saline -Foul Odor after Cleansing No No -Bioengineered Tissue Yes Yes -Type of bioengineered Tissue EPIFIX EPIFIX -Expiration Date 12/04/22 12/04/22 -Product Lot Number [id number] -Percent Used 100 100 -Saline Lot Number [id number] -Bleeding Controlled with Pressure NA -Treatment Response Procedure Procedure Tolerated Well Tolerated Well Pain Scale: 0-10 Numeric Is Patient Pain Free? Yes Yes Wound debrided: Left posterior heel Laterality: Left Type of Debridement: Excisional debridement Anesthesia Used: 4% Lidocaine Solution Depth: in the subcutaneous layer Percentage of wound debrided: 100 Instrument Used: #15 blade Tissue Removed: Adherent slough, fibrin, hyperkeratotic tissue Severity: Fat Layer Exposed Amount of bleeding with debridement: Mild Bleeding Controlled with: Pressure Patient tolerated procedure well Assessment/Plan Assessment: Ulcer to left heel, lower extremity edema, pvd Plan: Patient was examined and evaluated again today. A subcutaneous debridement was again performed as noted in the clinical panel. The ulcer site was then carefully cleansed. Ulcer has improved again in appearance this week. The tenth epifix application was applied to the ulcer today. This was followed by hydrogel, wound veil Steri-Strips and a dry sterile dressing. Patient was instructed to keep the dressing clean dry and intact from the wound veil dressing and lower and that he could change the outer dressing above this layer if needed. He was instructed to keep this dressing intact for the next week until his next visit here. Keeping the heel offloaded at all times was again stressed to the patient. He is to conintue to wear the modified shoe with the heel cut out in order to place to pressure to the area. He is to continue to float the heel over a pillow under his calves with absolutely no pressure to the heel while seated or in bed. He is to only put pressure to his left forefoot if he needs to stand for any reason. He says he understands this. I still continue to question patient's complete compliance with offloading. I recommend a diet high in protein to help with wound healing. Patient was again shown the way to properly apply his tubigrips for compression. Patient was educated on all signs and symptoms of local and systemic infection, and he is instructed to go to the emergency room immediately should he notice any. All other questions were answered to the patient's satisfaction. Patient will follow-up in clinic in 1 week or sooner if needed.
[2018-03-23 09:12] VITALS: BP 177/66; PULSE 58; RESP 18; TEMP 36
--- NOTE | 2018-03-23 09:34 | PN.PCM_ITS ---
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 Status: Acute Current Visit: No Code(s): L97.422 - Non-pressure chronic ulcer of left heel and midfoot with fat layer exposed (2) PVD (peripheral vascular disease) Status: Acute Current Visit: No Code(s): I73.9 - Peripheral vascular disease , unspecified (3) Lower extremity edema Status: Acute Current Visit: No Code(s): R60.0 - Localized edema (4) Delayed wound healing Status: Acute Current Visit: No Code(s): T14.8XXD - Other injury of unspecified body region, subsequent encounter Type of Wound Date of Service: 03/23/18 Chief Complaint: Ulcer to left heel History of Wound: Patient is a poor historian, and it is hard to get information from him. Patient states that he noticed a blister starting on the back of his heel over 3 months ago. According to the patient, he did nothing about the blister and did not treat or dress the area. He says that both of his legs had been swelling as well and he was being treated with a water pill. He says that as the swelling was going down his blister popped. He said he still did not do anything to treat the area. He said he was seen recently by Jak Fritz who sent the patient to wound care center to be treated. The patient says he continues to walk on the area and was not told that he wasn't supposed to. He says his son helps him and can help with dressing changes if needed. He says he has not noticed any redness, bad smells, or any pus from the area. He currently denies any feelings of nausea, vomiting, fever, or chills. Progress of Wound: Patient presents for follow up. Patient had epifix applied last week and has left his dressing intact. Patient states that he continues to try and keep all weight off of his heel the best he can, and is wearing the shoe his son modified for him to keep all of the pressure off the ulcer site. He says if he has to move he tries to keep all of his pressure to his forefoot. Patient says the area continues to heal. Patient denies any current feelings of nausea, vomiting, fever, or chills. - Physical Exam Vital Signs Temp Pulse Resp BP 96.8 F L 58 L 18 177/66 H 03/23/18 09:12 03/23/18 09:12 03/23/18 09:12 03/23/18 09:12 General: Alert, Oriented x3, Cooperative, No apparent distress Extremities: Capillary Refill Less than 3 Seconds, No Calf Tenderness - Negative Alicia and Bishop sign, Diminished Peripheral Pulses - DP and PT pulses nonpalpable due to slight lower extremity edema, Edema - Slight lower extremity edema Skin: Ulcer/ Wound - Ulcer to left posterior heel noted with fat layer exposed. Ulcer continues to show steady improvement. The base continues to be a mixture of adherent slough, fibrin and granular tissue. Very small amount of hyperkeratotic tissue surrounding the ulcer periphery. There continues to be no purulence, no malodor, no extending cellulitis, no increased warmth, no probing, no tracking, and no undermining appreciated to the ulcer at this time. Wound Measurements and Assessment WC - Nurse 1 - General Ulcer Measurement Start: 03/09/18 10:14 Freq: Status: Active Protocol: Activity Type Activity Date Activity User E-Sign Co-Sign Detail Recorded Client Recorded Date Recorded By Document 03/23/18 09:12 [id number] 03/23/18 09:14 03/23/18 09:12 Wound Center Nurse 1 [Ulcer Assessment] 1-left heel -Combined with other wound No -Current Size (cm) - Length 0.6 -Current Size (cm) - Width 0.5 -Current Size (cm) - Depth 0.1 -Total Square Cm 0.30 -Photo Taken No -Epithelialization None Present -Tunneling No -Undermining/Tunneling No -Circular Undermining No -Classification - Thickness Full Thickness without Exposed Support Structure -Exudate Amt Small (1-33%) -Exudate Type Serosanguineous -Wound Margin Distinct, Outline Attached -Granulation Amt Large (67-100%) -Granulation Quality Red -Slough/Fibrin Yes -Necrosis Amt Small (1-33%) -Necrotic Tissue Type Adherent Slough -Structure Exposed Fascia Fat Layer Exposed -Texture (Radha-wound Skin Appearance) Callus -Moisture (Radha-wound Skin Appearance Dry/Scaly ) -Color (Radha-wound Skin Appearance) No Abnormality Assessed -Temperature (Radha-wound Skin No Abnormality Appearance) (Pt Warm) -Tenderness on Palpation (Radha-wound Yes Skin Appearance) -Ulcer Cleansing Rinsed/ Irrigated with Saline -Foul Odor after Cleansing No -Anesthetic Used 5% Lidocaine Gel [Edema Assessment] -Lower Limb Edema Present Yes -Left Calf (cm) 38.8 -Left Ankle (cm) 26.0 Musculoskeletal: Tenderness - Slight tenderness to left heel Neurological: Sensory exam intact to light touch and pain Psych/Mental Status: Normal Affect, Appropriate Debridement Note Post-Debridement Measurements/Treatment WC - Nurse 2 - General Ulcer CM Notes Start: 03/09/18 10:14 Freq: Status: Active Protocol: Activity Type Activity Date Activity User E-Sign Co-Sign Detail Recorded Client Recorded Date Recorded By Document 03/09/18 10:19 [id number] 03/09/18 10:34 CS Document 03/16/18 09:18 [id number] 03/16/18 09:27 CS 03/09/18 03/16/18 10:19 09:18 Wound Center Nurse 2 1-left heel -Time 10:19 09:19 -Correct Patient Yes Yes -Correct Side, Site, Position Yes Yes -Correct Procedure Yes Yes -Procedure Performed Yes Yes -Type of Procedure Debridement Debridement -Clinical Debridement Subcutaneous Subcutaneous -Post Debridement Size (cm) - Length 0.4 0.5 -Post Debridement Size (cm) - Width 0.2 0.5 -Post Debridement Size (cm) - Depth 0.1 0.1 -Total Square Cm 0.08 0.25 -Wound/Ulcer Outcome Not Healed Not Healed -Ulcer Cleansing Rinsed/ Rinsed/ Irrigated with Irrigated with Saline Saline -Foul Odor after Cleansing No No -Bioengineered Tissue Yes Yes -Type of bioengineered Tissue EPIFIX EPIFIX -Expiration Date 12/04/22 12/04/22 -Product Lot Number [id number] -Percent Used 100 100 -Saline Lot Number [id number] -Bleeding Controlled with Pressure NA -Treatment Response Procedure Procedure Tolerated Well Tolerated Well Pain Scale: 0-10 Numeric Is Patient Pain Free? Yes Yes Wound debrided: Left posterior heel Laterality: Left Type of Debridement: Excisional debridement Anesthesia Used: 4% Lidocaine Solution Depth: in the subcutaneous layer Percentage of wound debrided: 100 Instrument Used: 3mm curette Tissue Removed: Adherent slough, fibrin, hyperkeratotic tissue Severity: Fat Layer Exposed Amount of bleeding with debridement: Mild Bleeding Controlled with: Pressure Patient tolerated procedure well Assessment/Plan Assessment: Ulcer to left heel, lower extremity edema, pvd Plan: Patient was examined and evaluated again today. A subcutaneous debridement was again performed as noted in the clinical panel. The ulcer site was then carefully cleansed. Ulcer has improved again in appearance this week. Patient completed ten epifix. Today, area was dressed with daisha, followed by a dry sterile dressing. He will have this dressing changed every other day with the help of his son. Explained exactly how to apply this dressing. Dressing supplies ordered for the patient. Keeping the heel offloaded at all times was again stressed to the patient. He is to conintue to wear the modified shoe with the heel cut out in order to place to pressure to the area. He is to continue to float the heel over a pillow under his calves with absolutely no pressure to the heel while seated or in bed. He is to only put pressure to his left forefoot if he needs to stand for any reason. He says he understands this. I still continue to question patient's complete compliance with offloading. I recommend a diet high in protein to help with wound healing. Patient was again shown the way to properly apply his tubigrips for compression. Patient was educated on all signs and symptoms of local and systemic infection, and he is instructed to go to the emergency room immediately should he notice any. All other questions were answered to the patient's satisfaction. Patient will follow-up in clinic in 1 week or sooner if needed.
[2018-03-30 09:02] VITALS: BP 164/77; PULSE 61; RESP 18; TEMP 36.4
--- NOTE | 2018-03-30 09:40 | PCM.WC.PN ---
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 Status: Acute Current Visit: No Code(s): L97.422 - Non-pressure chronic ulcer of left heel and midfoot with fat layer exposed (2) PVD (peripheral vascular disease) Status: Acute Current Visit: No Code(s): I73.9 - Peripheral vascular disease, unspecified (3) Lower extremity edema Status: Acute Current Visit: No Code(s): R60.0 - Localized edema (4) Delayed wound healing Status: Acute Current Visit: No Code(s): T14.8XXD - Other injury of unspecified body region, subsequent encounter Type of Wound Date of Service: 03/30/18 Chief Complaint: Ulcer to left heel History of Wound: Patient is a poor historian, and it is hard to get information from him. Patient states that he noticed a blister starting on the back of his heel over 3 months ago. According to the patient, he did nothing about the blister and did not treat or dress the area. He says that both of his legs had been swelling as well and he was being treated with a water pill. He says that as the swelling was going down his blister popped. He said he still did not do anything to treat the area. He said he was seen recently by Jak Fritz who sent the patient to wound care center to be treated. The patient says he continues to walk on the area and was not told that he wasn't supposed to. He says his son helps him and can help with dressing changes if needed. He says he has not noticed any redness, bad smells, or any pus from the area. He currently denies any feelings of nausea, vomiting, fever, or chills. Progress of Wound: Patient presents for follow up. Patient had daily dressing changes of daisha over the last week. Patient states that he continues to try and keep all weight off of his heel the best he can, and is wearing the shoe his son modified for him to keep all of the pressure off the ulcer site. He says if he has to move he tries to keep all of his pressure to his forefoot. Patient says the area continues to heal. Patient denies any current feelings of nausea, vomiting, fever, or chills. - Physical Exam Vital Signs Temp Pulse Resp BP 97.5 F L 61 18 164/77 H 03/30/18 09:02 03/30/18 09:02 03/30/18 09:02 03/30/18 09:02 General: Alert, Oriented x3, Cooperative, No apparent distress Extremities: Capillary Refill Less than 3 Seconds, No Calf Tenderness - Negative Alicia and Bishop sign, Diminished Peripheral Pulses - DP and PT pulses nonpalpable due to slight lower extremity edema, Edema - Slight lower extremity edema Skin: Ulcer/ Wound - Ulcer to left posterior heel with fat layer exposed. Ulcer continues to show improvement again this week. The base continues to be a mixture of adherent slough, fibrin, and granular tissue. There continues to be no purulence, no malodor, no extending cellulitis, no increase in warmth, no probing to bone, no tracking, and no undermining appreciated at this time. Wound Measurements and Assessment WC - Nurse 1 - General Ulcer Measurement Start: 03/09/18 10:14 Freq: Status: Active Protocol: Activity Type Activity Date Activity User E-Sign Co-Sign Detail Recorded Client Recorded Date Recorded By Document 03/30/18 09:02 [id number] 03/30/18 09:11 RB 03/30/18 09:02 Wound Center Nurse 1 [Ulcer Assessment] 1-left heel -Combined with other wound No -Current Size (cm) - Length 0.6 -Current Size (cm) - Width 0.3 -Current Size (cm) - Depth 0.1 -Total Square Cm 0.18 -Photo Taken No -Epithelialization Small 1-33% -Tunneling No -Undermining/Tunneling No -Circular Undermining No -Classification - Thickness Full Thickness without Exposed Support Structure -Exudate Amt Small (1-33%) -Exudate Type Serosanguineous -Wound Margin Distinct, Outline Attached -Granulation Amt Medium (34-66%) -Granulation Quality [place] -Slough/Fibrin Yes -Necrosis Amt Small (1-33%) -Necrotic Tissue Type Adherent Slough -Structure Exposed N/A -Texture (Radha-wound Skin Appearance) Assessed Callus -Moisture (Radha-wound Skin Appearance Assessed ) -Color (Radha-wound Skin Appearance) Assessed -Temperature (Radha-wound Skin No Abnormality Appearance) (Pt Warm) -Tenderness on Palpation (Radha-wound No Skin Appearance) -Ulcer Cleansing Rinsed/ Irrigated with Saline -Foul Odor after Cleansing No -Anesthetic Used 4% Lidocaine Solution [Edema Assessment] -Lower Limb Edema Present Yes -Left Calf (cm) 40 -Left Ankle (cm) 26.4 - Nurse 2 - General Ulcer CM Notes Start: 03/09/18 10:14 Freq: Status: Active Protocol: Activity Type Activity Date Activity User E-Sign Co-Sign Detail Recorded Client Recorded Date Recorded By Document 03/30/18 09:22 [id number] 03/30/18 09:22 03/30/18 09:22 Wound Center Nurse 2 [Procedure/Treatment] 1-left heel -Time 09:20 -Correct Patient Yes -Correct Side, Site, Position Yes -Correct Procedure Yes -Procedure Performed Yes -Type of Procedure Debridement -Clinical Debridement Subcutaneous -Post Debridement Size (cm) - Length 0.4 -Post Debridement Size (cm) - Width 0.4 -Post Debridement Size (cm) - Depth 0.1 -Total Square Cm 0.16 -Wound/Ulcer Outcome Not Healed -Ulcer Cleansing Not Cleansed -Foul Odor after Cleansing No -Bioengineered Tissue No -Bleeding Controlled with NA -Treatment Response Procedure Tolerated Well [See Physician Procedure note for Specifics] Pain Scale: 0-10 Numeric [Pain] -Is Patient Pain Free? Yes Musculoskeletal: Tenderness - Very slight tenderness to left heel Neurological: Sensory exam intact to light touch and pain Psych/Mental Status: Normal Affect, Appropriate Debridement Note Post-Debridement Measurements/Treatment - Nurse 2 - General Ulcer CM Notes Start: 03/09/18 10:14 Freq: Status: Active Protocol: Activity Type Activity Date Activity User E-Sign Co-Sign Detail Recorded Client Recorded Date Recorded By Document 03/09/18 10:19 [id number] 03/09/18 10:34 CS Document 03/16/18 09:18 [id number] 03/16/18 09:27 CS Document 03/23/18 09:21 [id number] 03/23/18 09:29 CS Document 03/30/18 09:22 [id number] 03/30/18 09:22 CS 03/09/18 03/16/18 03/23/18 10:19 09:18 09:21 Wound Center Nurse 2 1-left heel -Time 10:19 09:19 09:23 -Correct Patient Yes Yes Yes -Correct Side, Site, Position Yes Yes Yes -Correct Procedure Yes Yes Yes -Procedure Performed Yes Yes Yes -Type of Procedure Debridement Debridement Debridement -Clinical Debridement Subcutaneous Subcutaneous Subcutaneous -Post Debridement Size (cm) - Length 0.4 0.5 1.1 -Post Debridement Size (cm) - Width 0.2 0.5 0.4 -Post Debridement Size (cm) - Depth 0.1 0.1 0.1 -Total Square Cm 0.08 0.25 0.44 -Wound/Ulcer Outcome Not Healed Not Healed Not Healed -Ulcer Cleansing Rinsed/ Rinsed/ Not Cleansed Irrigated with Irrigated with Saline Saline -Foul Odor after Cleansing No No No -Bioengineered Tissue Yes Yes No -Type of bioengineered Tissue EPIFIX EPIFIX -Expiration Date 12/04/22 12/04/22 -Product Lot Number [id number] -Percent Used 100 100 -Saline Lot Number [id number] -Bleeding Controlled with Pressure NA Pressure -Treatment Response Procedure Procedure Procedure Tolerated Well Tolerated Well Tolerated Well Pain Scale: 0-10 Numeric Is Patient Pain Free? Yes Yes Yes 03/30/18 09:22 Wound Center Nurse 2 1-left heel -Time 09:20 -Correct Patient Yes -Correct Side, Site, Position Yes -Correct Procedure Yes -Procedure Performed Yes -Type of Procedure Debridement -Clinical Debridement Subcutaneous -Post Debridement Size (cm) - Length 0.4 -Post Debridement Size (cm) - Width 0.4 -Post Debridement Size (cm) - Depth 0.1 -Total Square Cm 0.16 -Wound/Ulcer Outcome Not Healed -Ulcer Cleansing Not Cleansed -Foul Odor after Cleansing No -Bioengineered Tissue No -Type of bioengineered Tissue -Expiration Date -Product Lot Number -Percent Used -Saline Lot Number -Bleeding Controlled with NA -Treatment Response Procedure Tolerated Well Pain Scale: 0-10 Numeric Is Patient Pain Free? Yes Wound debrided: Left posterior heel Laterality: Left Type of Debridement: Excisional debridement Anesthesia Used: 4% Lidocaine Solution Depth: in the subcutaneous layer Percentage of wound debrided: 100 Instrument Used: 3mm curette Tissue Removed: Adherent slough, fibrin, hyperkeratotic tissue Severity: Fat Layer Exposed Amount of bleeding with debridement: Mild Bleeding Controlled with: Pressure Patient tolerated procedure well Assessment/Plan Assessment: Ulcer to left heel, lower extremity edema, pvd Plan: Patient was examined and evaluated again today. A subcutaneous debridement was again performed as noted in the clinical panel. The ulcer site was then carefully cleansed. Ulcer has improved again in appearance this week. Today, area was dressed with daisha, followed by a dry sterile dressing. He will have this dressing changed every other day with the help of his son. I explained exactly how to apply this dressing. Dressing supplies ordered for the patient. Keeping the heel offloaded at all times was again stressed to the patient. He is to conintue to wear the modified shoe with the heel cut out in order to place to pressure to the area. He is to continue to float the heel over a pillow under his calves with absolutely no pressure to the heel while seated or in bed. He is to only put pressure to his left forefoot if he needs to stand for any reason. He says he understands this. I still continue to question patient's complete compliance with offloading. I recommend a diet high in protein to help with wound healing. Patient was again shown the way to properly apply his tubigrips for compression. Patient was educated on all signs and symptoms of local and systemic infection, and he is instructed to go to the emergency room immediately should he notice any. All other questions were answered to the patient's satisfaction. Patient will follow-up in clinic in 1 week or sooner if needed.
--- NOTE | 2018-03-30 09:45 | PN.PCM_ITS ---
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 Status: Acute Current Visit: No Code(s): L97.422 - Non-pressure chronic ulcer of left heel and midfoot with fat layer exposed (2) PVD (peripheral vascular disease) Status: Acute Current Visit: No Code(s): I73.9 - Peripheral vascular disease , unspecified (3) Lower extremity edema Status: Acute Current Visit: No Code(s): R60.0 - Localized edema (4) Delayed wound healing Status: Acute Current Visit: No Code(s): T14.8XXD - Other injury of unspecified body region, subsequent encounter Type of Wound Date of Service: 03/30/18 Chief Complaint: Ulcer to left heel History of Wound: Patient is a poor historian, and it is hard to get information from him. Patient states that he noticed a blister starting on the back of his heel over 3 months ago. According to the patient, he did nothing about the blister and did not treat or dress the area. He says that both of his legs had been swelling as well and he was being treated with a water pill. He says that as the swelling was going down his blister popped. He said he still did not do anything to treat the area. He said he was seen recently by Jak Fritz who sent the patient to wound care center to be treated. The patient says he continues to walk on the area and was not told that he wasn't supposed to. He says his son helps him and can help with dressing changes if needed. He says he has not noticed any redness, bad smells, or any pus from the area. He currently denies any feelings of nausea, vomiting, fever, or chills. Progress of Wound: Patient presents for follow up. Patient had daily dressing changes of daisha over the last week. Patient states that he continues to try and keep all weight off of his heel the best he can, and is wearing the shoe his son modified for him to keep all of the pressure off the ulcer site. He says if he has to move he tries to keep all of his pressure to his forefoot. Patient says the area continues to heal. Patient denies any current feelings of nausea, vomiting, fever, or chills. - Physical Exam Vital Signs Temp Pulse Resp BP 97.5 F L 61 18 164/77 H 03/30/18 09:02 03/30/18 09:02 03/30/18 09:02 03/30/18 09:02 General: Alert, Oriented x3, Cooperative, No apparent distress Extremities: Capillary Refill Less than 3 Seconds, No Calf Tenderness - Negative Alicia and Bishop sign, Diminished Peripheral Pulses - DP and PT pulses nonpalpable due to slight lower extremity edema, Edema - Slight lower extremity edema Skin: Ulcer/ Wound - Ulcer to left posterior heel with fat layer exposed. Ulcer continues to show improvement again this week. The base continues to be a mixture of adherent slough, fibrin, and granular tissue. There continues to be no purulence, no malodor, no extending cellulitis, no increase in warmth, no probing to bone, no tracking, and no undermining appreciated at this time. Wound Measurements and Assessment WC - Nurse 1 - General Ulcer Measurement Start: 03/09/18 10:14 Freq: Status: Active Protocol: Activity Type Activity Date Activity User E-Sign Co-Sign Detail Recorded Client Recorded Date Recorded By Document 03/30/18 09:02 [id number] 03/30/18 09:11 RB 03/30/18 09:02 Wound Center Nurse 1 [Ulcer Assessment] 1-left heel -Combined with other wound No -Current Size (cm) - Length 0.6 -Current Size (cm) - Width 0.3 -Current Size (cm) - Depth 0.1 -Total Square Cm 0.18 -Photo Taken No -Epithelialization Small 1-33% -Tunneling No -Undermining/Tunneling No -Circular Undermining No -Classification - Thickness Full Thickness without Exposed Support Structure -Exudate Amt Small (1-33%) -Exudate Type Serosanguineous -Wound Margin Distinct, Outline Attached -Granulation Amt Medium (34-66%) -Granulation Quality [place] -Slough/Fibrin Yes -Necrosis Amt Small (1-33%) -Necrotic Tissue Type Adherent Slough -Structure Exposed N/A -Texture (Radha-wound Skin Appearance) Assessed Callus -Moisture (Radha-wound Skin Appearance Assessed ) -Color (Radha-wound Skin Appearance) Assessed -Temperature (Radha-wound Skin No Abnormality Appearance) (Pt Warm) -Tenderness on Palpation (Radha-wound No Skin Appearance) -Ulcer Cleansing Rinsed/ Irrigated with Saline -Foul Odor after Cleansing No -Anesthetic Used 4% Lidocaine Solution [Edema Assessment] -Lower Limb Edema Present Yes -Left Calf (cm) 40 -Left Ankle (cm) 26.4 - Nurse 2 - General Ulcer CM Notes Start: 03/09/18 10:14 Freq: Status: Active Protocol: Activity Type Activity Date Activity User E-Sign Co-Sign Detail Recorded Client Recorded Date Recorded By Document 03/30/18 09:22 [id number] 03/30/18 09:22 03/30/18 09:22 Wound Center Nurse 2 [Procedure/Treatment] 1-left heel -Time 09:20 -Correct Patient Yes -Correct Side, Site, Position Yes -Correct Procedure Yes -Procedure Performed Yes -Type of Procedure Debridement -Clinical Debridement Subcutaneous -Post Debridement Size (cm) - Length 0.4 -Post Debridement Size (cm) - Width 0.4 -Post Debridement Size (cm) - Depth 0.1 -Total Square Cm 0.16 -Wound/Ulcer Outcome Not Healed -Ulcer Cleansing Not Cleansed -Foul Odor after Cleansing No -Bioengineered Tissue No -Bleeding Controlled with NA -Treatment Response Procedure Tolerated Well [See Physician Procedure note for Specifics] Pain Scale: 0-10 Numeric [Pain] -Is Patient Pain Free? Yes Musculoskeletal: Tenderness - Very slight tenderness to left heel Neurological: Sensory exam intact to light touch and pain Psych/Mental Status: Normal Affect, Appropriate Debridement Note Post-Debridement Measurements/Treatment - Nurse 2 - General Ulcer CM Notes Start: 03/09/18 10:14 Freq: Status: Active Protocol: Activity Type Activity Date Activity User E-Sign Co-Sign Detail Recorded Client Recorded Date Recorded By Document 03/09/18 10:19 [id number] 03/09/18 10:34 CS Document 03/16/18 09:18 [id number] 03/16/18 09:27 CS Document 03/23/18 09:21 [id number] 03/23/18 09:29 CS Document 03/30/18 09:22 [id number] 03/30/18 09:22 CS 03/09/18 03/16/18 03/23/18 10:19 09:18 09:21 Wound Center Nurse 2 1-left heel -Time 10:19 09:19 09:23 -Correct Patient Yes Yes Yes -Correct Side, Site, Position Yes Yes Yes -Correct Procedure Yes Yes Yes -Procedure Performed Yes Yes Yes -Type of Procedure Debridement Debridement Debridement -Clinical Debridement Subcutaneous Subcutaneous Subcutaneous -Post Debridement Size (cm) - Length 0.4 0.5 1.1 -Post Debridement Size (cm) - Width 0.2 0.5 0.4 -Post Debridement Size (cm) - Depth 0.1 0.1 0.1 -Total Square Cm 0.08 0.25 0.44 -Wound/Ulcer Outcome Not Healed Not Healed Not Healed -Ulcer Cleansing Rinsed/ Rinsed/ Not Cleansed Irrigated with Irrigated with Saline Saline -Foul Odor after Cleansing No No No -Bioengineered Tissue Yes Yes No -Type of bioengineered Tissue EPIFIX EPIFIX -Expiration Date 12/04/22 12/04/22 -Product Lot Number [id number] -Percent Used 100 100 -Saline Lot Number [id number] -Bleeding Controlled with Pressure NA Pressure -Treatment Response Procedure Procedure Procedure Tolerated Well Tolerated Well Tolerated Well Pain Scale: 0-10 Numeric Is Patient Pain Free? Yes Yes Yes 03/30/18 09:22 Wound Center Nurse 2 1-left heel -Time 09:20 -Correct Patient Yes -Correct Side, Site, Position Yes -Correct Procedure Yes -Procedure Performed Yes -Type of Procedure Debridement -Clinical Debridement Subcutaneous -Post Debridement Size (cm) - Length 0.4 -Post Debridement Size (cm) - Width 0.4 -Post Debridement Size (cm) - Depth 0.1 -Total Square Cm 0.16 -Wound/Ulcer Outcome Not Healed -Ulcer Cleansing Not Cleansed -Foul Odor after Cleansing No -Bioengineered Tissue No -Type of bioengineered Tissue -Expiration Date -Product Lot Number -Percent Used -Saline Lot Number -Bleeding Controlled with NA -Treatment Response Procedure Tolerated Well Pain Scale: 0-10 Numeric Is Patient Pain Free? Yes Wound debrided: Left posterior heel Laterality: Left Type of Debridement: Excisional debridement Anesthesia Used: 4% Lidocaine Solution Depth: in the subcutaneous layer Percentage of wound debrided: 100 Instrument Used: 3mm curette Tissue Removed: Adherent slough, fibrin, hyperkeratotic tissue Severity: Fat Layer Exposed Amount of bleeding with debridement: Mild Bleeding Controlled with: Pressure Patient tolerated procedure well Assessment/Plan Assessment: Ulcer to left heel, lower extremity edema, pvd Plan: Patient was examined and evaluated again today. A subcutaneous debridement was again performed as noted in the clinical panel. The ulcer site was then carefully cleansed. Ulcer has improved again in appearance this week. Today, area was dressed with daisha, followed by a dry sterile dressing. He will have this dressing changed every other day with the help of his son. I explained exactly how to apply this dressing. Dressing supplies ordered for the patient. Keeping the heel offloaded at all times was again stressed to the patient. He is to conintue to wear the modified shoe with the heel cut out in order to place to pressure to the area. He is to continue to float the heel over a pillow under his calves with absolutely no pressure to the heel while seated or in bed. He is to only put pressure to his left forefoot if he needs to stand for any reason. He says he understands this. I still continue to question patient's complete compliance with offloading. I recommend a diet high in protein to help with wound healing. Patient was again shown the way to properly apply his tubigrips for compression. Patient was educated on all signs and symptoms of local and systemic infection, and he is instructed to go to the emergency room immediately should he notice any. All other questions were answered to the patient's satisfaction. Patient will follow-up in clinic in 1 week or sooner if needed.
== END 2018-04-04 23:59 ==
LOC: WC 09:00
PROVIDERS: Visit Provider Podiatrist
DX: I73.9 Peripheral vascular disease, unspecified (principal); L97.422 Non-pressure chronic ulcer of left heel and midfoot with fat layer exposed; R60.0 Localized edema
CPT/HCPCS: 11042; 15275; Q4131

== ENCOUNTER 2018-04-20 09:00 | Outpatient (RCR) | payer MEDICARE, OTHER, SELFPAY ==
[2018-04-05 00:45] VITALS: BP 164/77; PULSE 61; RESP 18; TEMP 36.4
[2018-04-06 09:13] VITALS: BP 160/81; PULSE 63; RESP 18; TEMP 36.3
--- NOTE | 2018-04-06 09:43 | PN.PCM_ITS ---
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 Status: Acute Current Visit: No Code(s): L97.422 - Non-pressure chronic ulcer of left heel and midfoot with fat layer exposed (2) Lower extremity edema Status: Acute Current Visit: No Code(s): R60.0 - Localized edema (3) Delayed wound healing Status: Acute Current Visit: No Code(s): T14.8XXD - Other injury of unspecified body region, subsequent encounter (4) PVD (peripheral vascular disease) Status: Acute Current Visit: No Code(s): I73.9 - Peripheral vascular disease , unspecified Type of Wound Date of Service: 04/06/18 Chief Complaint: Ulcer to left heel History of Wound: Patient is a poor historian, and it is hard to get information from him. Patient states that he noticed a blister starting on the back of his heel over 3 months ago. According to the patient, he did nothing about the blister and did not treat or dress the area. He says that both of his legs had been swelling as well and he was being treated with a water pill. He says that as the swelling was going down his blister popped. He said he still did not do anything to treat the area. He said he was seen recently by Jak Fritz who sent the patient to wound care center to be treated. The patient says he continues to walk on the area and was not told that he wasn't supposed to. He says his son helps him and can help with dressing changes if needed. He says he has not noticed any redness, bad smells, or any pus from the area. He currently denies any feelings of nausea, vomiting, fever, or chills. Progress of Wound: Patient presents for follow up. Patient had daily dressing changes of daisha over the last week. Patient states that he continues to try and keep all weight off of his heel the best he can, and is wearing the shoe his son modified for him to keep all of the pressure off the ulcer site. Patient feels he is very close to being healed. Patient denies any current feelings of nausea, vomiting, fever, or chills. - Physical Exam Vital Signs Temp Pulse Resp BP 97.3 F L 63 18 160/81 H 04/06/18 09:13 04/06/18 09:13 04/06/18 09:13 04/06/18 09:13 General: Alert, Oriented x3, Cooperative, No apparent distress Extremities: Capillary Refill Less than 3 Seconds, No Calf Tenderness - Negative Alicia and Bishop sign, Diminished Peripheral Pulses - DP and PT pulses nonpalpable due to slight lower extremity edema, Edema - Slight lower extremity edema Skin: Ulcer/ Wound - Ulcer to left posterior heel with fat layer exposed. Measurements noted below. Improvement noted again this week. Area very close to healing. Patient continues to be a mixture of some very slight slough and granular tissue. There continues to be no purulence, no malodor, no extending cellulitis, no increased warmth, no probing to bone, no tracking, and no undermining noted. Wound Measurements and Assessment WC - Nurse 1 - General Ulcer Measurement Start: 04/06/18 09:13 Freq: Status: Active Protocol: Activity Type Activity Date Activity User E-Sign Co-Sign Detail Recorded Client Recorded Date Recorded By Document 04/06/18 09:13 [email or web address] [id number] 04/06/18 09:15 TN 04/06/18 09:13 Wound Center Nurse 1 [Ulcer Assessment] 1-left heel -Combined with other wound No -Current Size (cm) - Length 0.4 -Current Size (cm) - Width 0.3 -Current Size (cm) - Depth 0.1 -Total Square Cm 0.12 -Photo Taken No -Epithelialization None Present -Tunneling No -Undermining/Tunneling No -Circular Undermining No -Classification - Thickness Full Thickness without Exposed Support Structure -Change in Wound Grade/Stage No Query Text:If change please identify the Stage/Grade in the comment (ie. S2 G3) -Exudate Amt Small (1-33%) -Exudate Type Serous -Wound Margin Distinct, Outline Attached -Granulation Amt Large (67-100%) -Granulation Quality Red -Slough/Fibrin Yes -Necrosis Amt Small (1-33%) -Necrotic Tissue Type Adherent Slough -Structure Exposed None/Limited to Skin Breakdown -Texture (Radha-wound Skin Appearance) No Abnormality Assessed -Moisture (Radha-wound Skin Appearance No Abnormality ) Assessed -Color (Radha-wound Skin Appearance) No Abnormality Assessed -Temperature (Radha-wound Skin No Abnormality Appearance) (Pt Warm) -Tenderness on Palpation (Radha-wound No Skin Appearance) -Ulcer Cleansing Wound Cleanser -Foul Odor after Cleansing No -Anesthetic Used 4% Lidocaine Solution [Edema Assessment] -Lower Limb Edema Present No - Nurse 2 - General Ulcer CM Notes Start: 04/06/18 09:13 Freq: Status: Active Protocol: Activity Type Activity Date Activity User E-Sign Co-Sign Detail Recorded Client Recorded Date Recorded By Document 04/06/18 09:25 [id number] 04/06/18 09:36 04/06/18 09:25 Wound Center Nurse 2 [Procedure/Treatment] 1-left heel -Time 09:34 -Correct Patient Yes -Correct Side, Site, Position Yes -Correct Procedure Yes -Procedure Performed Yes -Type of Procedure Debridement -Clinical Debridement Selective -Post Debridement Size (cm) - Length 0.3 -Post Debridement Size (cm) - Width 0.3 -Post Debridement Size (cm) - Depth 0.1 -Total Square Cm 0.09 -Wound/Ulcer Outcome Not Healed -Ulcer Cleansing Not Cleansed -Foul Odor after Cleansing No -Bioengineered Tissue No -Bleeding Controlled with NA -Treatment Response Procedure Tolerated Well [See Physician Procedure note for Specifics] Pain Scale: 0-10 Numeric [Pain] -Is Patient Pain Free? Yes Musculoskeletal: Tenderness - Some tenderness with manipulation of ulcer site Neurological: Sensory exam intact to light touch and pain Psych/Mental Status: Normal Affect, Appropriate Debridement Note Post-Debridement Measurements/Treatment - Nurse 2 - General Ulcer CM Notes Start: 04/06/18 09:13 Freq: Status: Active Protocol: Activity Type Activity Date Activity User E-Sign Co-Sign Detail Recorded Client Recorded Date Recorded By Document 04/06/18 09:25 [id number] 04/06/18 09:36 04/06/18 09:25 Wound Center Nurse 2 1-left heel -Time 09:34 -Correct Patient Yes -Correct Side, Site, Position Yes -Correct Procedure Yes -Procedure Performed Yes -Type of Procedure Debridement -Clinical Debridement Selective -Post Debridement Size (cm) - Length 0.3 -Post Debridement Size (cm) - Width 0.3 -Post Debridement Size (cm) - Depth 0.1 -Total Square Cm 0.09 -Wound/Ulcer Outcome Not Healed -Ulcer Cleansing Not Cleansed -Foul Odor after Cleansing No -Bioengineered Tissue No -Bleeding Controlled with NA -Treatment Response Procedure Tolerated Well Pain Scale: 0-10 Numeric Is Patient Pain Free? Yes Wound debrided: Left posterior heel Laterality: Left Type of Debridement: Selective debridement Anesthesia Used: 4% Lidocaine Solution Depth: Down to and including healthy tissue, in the subcutaneous layer Percentage of wound debrided: 100 Instrument Used: #15 blade Tissue Removed: Adherent slough Severity: Fat Layer Exposed Amount of bleeding with debridement: Mild Bleeding Controlled with: Pressure Patient tolerated procedure well Assessment/Plan Assessment: Ulcer to left heel, lower extremity edema, pvd Plan: Patient was examined and evaluated again today. A selective debridement was again performed as noted in the clinical panel. The ulcer site was then carefully cleansed. Ulcer has improved again in appearance this week. Today, area was dressed with daisha, followed by a dry sterile dressing. He will have this dressing changed every other day with the help of his son. I explained exactly how to apply this dressing. Keeping the heel offloaded at all times was again stressed to the patient. He is to conintue to wear the modified shoe with the heel cut out in order to place to pressure to the area. He is to continue to float the heel over a pillow under his calves with absolutely no pressure to the heel while seated or in bed. He is to only put pressure to his left forefoot if he needs to stand for any reason. He says he understands this. I recommend a diet high in protein to help with wound healing. Patient was again shown the way to properly apply his tubigrips for compression. Patient was educated on all signs and symptoms of local and systemic infection, and he is instructed to go to the emergency room immediately should he notice any. All other questions were answered to the patient's satisfaction. Patient will follow-up in clinic in 1 week or sooner if needed.
[2018-04-13 09:04] VITALS: BP 155/76; PULSE 68; RESP 18; TEMP 36.1
--- NOTE | 2018-04-13 10:18 | PN.PCM_ITS ---
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 Patient states that he noticed a blister starting on the back of his heel over 3 months ago. According to the patient, he did nothing about the blister and did not treat or dress the area. He says that both of his legs had been swelling as well and he was being treated with a water pill. He says that as the swelling was going down his blister popped. He said he still did not do anything to treat the area. He said he was seen recently by Jak Fritz who sent the patient to wound care center to be treated. The patient says he continues to walk on the area and was not told that he wasn't supposed to. He says his son helps him and can help with dressing changes if needed. He says he has not noticed any redness, bad smells, or any pus from the area. He currently denies any feelings of nausea, vomiting, fever, or chills. Progress of Wound: Patient presents for follow up. Patient had daily dressing changes of daisha over the last week. Patient states that he continues to try and keep all weight off of his heel the best he can, and is wearing the shoe his son modified for him to keep all of the pressure off the ulcer site. Patient denies any current feelings of nausea, vomiting, fever, or chills. - Physical Exam Vital Signs Temp Pulse Resp BP 97.0 F L 68 18 155/76 H 04/13/18 09:04 04/13/18 09:04 04/13/18 09:04 04/13/18 09:04 General: Alert, Oriented x3, Cooperative, No apparent distress Extremities: Capillary Refill Less than 3 Seconds, No Calf Tenderness - Negative Alicia and Bishop sign, Diminished Peripheral Pulses - DP and PT pulses nonpalpable due to slight lower extremity edema, Edema - Slight lower extremity edema Skin: Ulcer/ Wound - Ulcer to left posterior heel fat layer exposed. Measurements are noted below. Slight improvement appreciated again this week. I anticipate healing next week or possibly the week after.. The ulcer base continues to be a mixture of some slight slough and granular tissue. There continues to be no purulence, no malodor, no extending cellulitis, no increase in warmth, no probing to bone, no tracking, no undermining appreciated at this time. Wound Measurements and Assessment WC - Nurse 1 - General Ulcer Measurement Start: 04/06/18 09:13 Freq: Status: Active Protocol: Activity Type Activity Date Activity User E-Sign Co-Sign Detail Recorded Client Recorded Date Recorded By Document 04/13/18 09:04 LA [id number] 04/13/18 09:13 LA 04/13/18 09:04 Wound Center Nurse 1 [Ulcer Assessment] 1-left heel -Combined with other wound No -Current Size (cm) - Length 0.1 -Current Size (cm) - Width 0.1 -Current Size (cm) - Depth 0.1 -Total Square Cm 0.01 -Date of Last Picture (Recall this 04/13/18 field) -Photo Taken Yes -Epithelialization Large 67-100% -Tunneling No -Undermining/Tunneling No -Circular Undermining No -Exudate Amt None Present (0 %) -Wound Margin Flat & Intact -Granulation Amt None Present (0 %) -Slough/Fibrin No -Texture (Radha-wound Skin Appearance) Assessed Localized Edema -Color (Radha-wound Skin Appearance) Assessed -Temperature (Radha-wound Skin No Abnormality Appearance) (Pt Warm) -Tenderness on Palpation (Radha-wound No Skin Appearance) -Ulcer Cleansing Not Cleansed -Foul Odor after Cleansing No [Edema Assessment] -Left Calf (cm) 39 -Left Ankle (cm) 27 WC - Nurse 2 - General Ulcer CM Notes Start: 04/06/18 09:13 Freq: Status: Active Protocol: Activity Type Activity Date Activity User E-Sign Co-Sign Detail Recorded Client Recorded Date Recorded By Document 04/13/18 09:31 [id number] 04/13/18 09:32 04/13/18 09:31 Wound Center Nurse 2 [Procedure/Treatment] 1-left heel -Time 09:31 -Correct Patient Yes -Correct Side, Site, Position Yes -Correct Procedure Yes -Procedure Performed Yes -Type of Procedure Debridement -Clinical Debridement Selective -Post Debridement Size (cm) - Length 0.2 -Post Debridement Size (cm) - Width 0.2 -Post Debridement Size (cm) - Depth 0.1 -Total Square Cm 0.04 -Wound/Ulcer Outcome Not Healed -Ulcer Cleansing Not Cleansed -Foul Odor after Cleansing No -Bioengineered Tissue No -Bleeding Controlled with NA -Treatment Response Procedure Tolerated Well [See Physician Procedure note for Specifics] Pain Scale: 0-10 Numeric [Pain] -Is Patient Pain Free? Yes Musculoskeletal: Tenderness - Slight tenderness with manipulation of ulcer site Neurological: Sensory exam intact to light touch and pain Psych/Mental Status: Normal Affect, Appropriate Debridement Note Post-Debridement Measurements/Treatment WC - Nurse 2 - General Ulcer CM Notes Start: 04/06/18 09:13 Freq: Status: Active Protocol: Activity Type Activity Date Activity User E-Sign Co-Sign Detail Recorded Client Recorded Date Recorded By Document 04/06/18 09:25 [id number] 04/06/18 09:36 Document 04/13/18 09:31 [id number] 04/13/18 09:32 04/06/18 [id number] 09:25 09:31 Wound Center Nurse 2 1-left heel -Time 09:34 09:31 -Correct Patient Yes Yes -Correct Side, Site, Position Yes Yes -Correct Procedure Yes Yes -Procedure Performed Yes Yes -Type of Procedure Debridement Debridement -Clinical Debridement Selective Selective -Post Debridement Size (cm) - Length 0.3 0.2 -Post Debridement Size (cm) - Width 0.3 0.2 -Post Debridement Size (cm) - Depth 0.1 0.1 -Total Square Cm 0.09 0.04 -Wound/Ulcer Outcome Not Healed Not Healed -Ulcer Cleansing Not Cleansed Not Cleansed -Foul Odor after Cleansing No No -Bioengineered Tissue No No -Bleeding Controlled with NA NA -Treatment Response Procedure Procedure Tolerated Well Tolerated Well Pain Scale: 0-10 Numeric Is Patient Pain Free? Yes Yes Wound debrided: Left posterior heel Laterality: Left Type of Debridement: Selective debridement Anesthesia Used: 4% Lidocaine Solution Depth: Down to and including healthy tissue Percentage of wound debrided: 100 Instrument Used: #15 blade Tissue Removed: Adherent slough Severity: Fat Layer Exposed Amount of bleeding with debridement: Mild Bleeding Controlled with: Pressure Patient tolerated procedure well Assessment/Plan Assessment: Ulcer to left heel, lower extremity edema, pvd Plan: Patient was examined and evaluated again today. A selective debridement was again performed as noted in the clinical panel. The ulcer site was then carefully cleansed. Ulcer has improved again in appearance this week. Today, area was dressed with daisha, followed by a dry sterile dressing. He will have this dressing changed every other day with the help of his son. I explained exactly how to apply this dressing. Keeping the heel offloaded at all times was again stressed to the patient. He is to conintue to wear the modified shoe with the heel cut out in order to place to pressure to the area. He is to continue to float the heel over a pillow under his calves with absolutely no pressure to the heel while seated or in bed. He is to only put pressure to his left forefoot if he needs to stand for any reason. He says he understands this. I recommend a diet high in protein to help with wound healing. Patient was again shown the way to properly apply his tubigrips for compression. I anticipate healing within the next couple of visits. Patient was educated on all signs and symptoms of local and systemic infection, and he is instructed to go to the emergency room immediately should he notice any. All other questions were answered to the patient's satisfaction. Patient will follow-up in clinic in 1 week or sooner if needed.
[2018-04-20 09:22] VITALS: BP 164/49; PULSE 67; RESP 18; TEMP 36.7
--- NOTE | 2018-04-20 09:26 | PCM.WC.PN ---
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 Status: Acute Current Visit: No Code(s): L97.422 - Non-pressure chronic ulcer of left heel and midfoot with fat layer exposed (2) Lower extremity edema Status: Acute Current Visit: No Code(s): R60.0 - Localized edema (3) Delayed wound healing Status: Acute Current Visit: No Code(s): T14.8XXD - Other injury of unspecified body region, subsequent encounter (4) PVD (peripheral vascular disease) Status: Acute Current Visit: No Code(s): I73.9 - Peripheral vascular disease, unspecified Type of Wound Date of Service: 04/20/18 Chief Complaint: Ulcer to left heel History of Wound: Patient is a poor historian, and it is hard to get information from him. Patient states that he noticed a blister starting on the back of his heel over 3 months ago. According to the patient, he did nothing about the blister and did not treat or dress the area. He says that both of his legs had been swelling as well and he was being treated with a water pill. He says that as the swelling was going down his blister popped. He said he still did not do anything to treat the area. He said he was seen recently by Jak Fritz who sent the patient to wound care center to be treated. The patient says he continues to walk on the area and was not told that he wasn't supposed to. He says his son helps him and can help with dressing changes if needed. He says he has not noticed any redness, bad smells, or any pus from the area. He currently denies any feelings of nausea, vomiting, fever, or chills. Progress of Wound: Patient presents for follow up. He appears healed at this time. Patient denies any current feelings of nausea, vomiting, fever, or chills. - Physical Exam Vital Signs Temp Pulse Resp BP 98.0 F 67 18 164/49 H 04/20/18 09:22 04/20/18 09:22 04/20/18 09:22 04/20/18 09:22 General: Alert, Oriented x3, Cooperative, No apparent distress Extremities: Capillary Refill Less than 3 Seconds, No Calf Tenderness, Diminished Peripheral Pulses, Edema Skin: Ulcer/ Wound - Ulcer site appears healed at this time with no signs or symptoms of local bacterial infection noted. Wound Measurements and Assessment WC - Nurse 1 - General Ulcer Measurement Start: 04/06/18 09:13 Freq: Status: Active Protocol: Activity Type Activity Date Activity User E-Sign Co-Sign Detail Recorded Client Recorded Date Recorded By Document 04/20/18 09:22 [id number] 04/20/18 09:25 04/20/18 09:22 Wound Center Nurse 1 [Ulcer Assessment] 1-left heel -Combined with other wound No -Current Size (cm) - Length 0.1 -Current Size (cm) - Width 0.1 -Current Size (cm) - Depth 0.1 -Total Square Cm 0.01 -Date of Last Picture (Recall this 04/20/18 field) -Photo Taken Yes -Epithelialization Large 67-100% [Edema Assessment] -Lower Limb Edema Present Yes -Right Calf (cm) 42 -Right Ankle (cm) 30.5 -Left Calf (cm) 36 -Left Ankle (cm) 29.5 - Nurse 2 - General Ulcer CM Notes Start: 04/06/18 09:13 Freq: Status: Active Protocol: Activity Type Activity Date Activity User E-Sign Co-Sign Detail Recorded Client Recorded Date Recorded By Document 04/20/18 09:22 [id number] 04/20/18 09:25 04/20/18 09:22 Wound Center Nurse 2 [Procedure/Treatment] 1-left heel -Time 09:24 -Correct Patient No -Correct Side, Site, Position No -Correct Procedure No -Procedure Performed No -Post Debridement Size (cm) - Length 0 -Post Debridement Size (cm) - Width 0 -Post Debridement Size (cm) - Depth 0 -Total Square Cm 0 -Wound/Ulcer Outcome Healed- Epithelialized Musculoskeletal: - - no tenderness to previous ulcer site today Neurological: Sensory exam intact to light touch and pain Psych/Mental Status: Normal Affect, Appropriate Debridement Note Post-Debridement Measurements/Treatment - Nurse 2 - General Ulcer CM Notes Start: 04/06/18 09:13 Freq: Status: Active Protocol: Activity Type Activity Date Activity User E-Sign Co-Sign Detail Recorded Client Recorded Date Recorded By Document 04/06/18 09:25 [id number] 04/06/18 09:36 CS Document 04/13/18 09:31 [id number] 04/13/18 09:32 CS Document 04/20/18 09:22 [id number] 04/20/18 09:25 CS 04/06/18 04/13/18 04/20/18 09:25 09:31 09:22 Wound Center Nurse 2 1-left heel -Time 09:34 09:31 09:24 -Correct Patient Yes Yes No -Correct Side, Site, Position Yes Yes No -Correct Procedure Yes Yes No -Procedure Performed Yes Yes No -Type of Procedure Debridement Debridement -Clinical Debridement Selective Selective -Post Debridement Size (cm) - Length 0.3 0.2 0 -Post Debridement Size (cm) - Width 0.3 0.2 0 -Post Debridement Size (cm) - Depth 0.1 0.1 0 -Total Square Cm 0.09 0.04 0 -Wound/Ulcer Outcome Not Healed Not Healed Healed- Epithelialized -Ulcer Cleansing Not Cleansed Not Cleansed -Foul Odor after Cleansing No No -Bioengineered Tissue No No -Bleeding Controlled with NA NA -Treatment Response Procedure Procedure Tolerated Well Tolerated Well Pain Scale: 0-10 Numeric Is Patient Pain Free? Yes Yes No debridement was completed today Assessment/Plan Assessment: Ulcer to left heel, lower extremity edema, pvd Plan: Patient was examined and evaluated again today. No debridement was performed today as the patient is healed. He is to conintue to wear the modified shoe with the heel cut out in order to place to pressure to the area for another one or two weeks and then slowly transition back into a regular shoe. He is to continue to float the heel over a pillow under his calves with absolutely no pressure to the heel while seated or in bed for extended periods of time. Patient was again shown the way to properly apply his tubigrips for compression and he is to continue with these. IPatient was educated on all signs and symptoms of local and systemic infection, and he is instructed to go to the emergency room immediately should he notice any. All other questions were answered to the patient's satisfaction. Patient will be discharged from the wound healing center at this time, but he is to follow up sooner if needed for any reason.
== END 2018-05-05 23:59 ==
LOC: WC 09:00
PROVIDERS: Visit Provider Podiatrist
DX: I73.9 Peripheral vascular disease, unspecified (principal); L97.422 Non-pressure chronic ulcer of left heel and midfoot with fat layer exposed; R60.0 Localized edema
CPT/HCPCS: 97597; 99212; G0463

== ENCOUNTER 2018-09-28 08:45 | Outpatient (RCR) | payer MEDICARE, OTHER, SELFPAY ==
[2018-09-07 10:33] VITALS: BP 128/89; PULSE 85; RESP 16; TEMP 36.8; BMI 28.5
--- NOTE | 2018-09-07 14:02 | PCM.WC.HP ---
(1) Chronic ulcer of left foot with fat layer exposed Status: Chronic Current Visit: Yes Code(s): L97.522 - Non-pressure chronic ulcer of other part of left foot with fat layer exposed (2) Pain in left toe(s) Status: Acute Current Visit: Yes Code(s): M79.675 - Pain in left toe(s) (3) Lower extremity edema Status: Acute Current Visit: No Code(s): R60.0 - Localized edema (4) Delayed wound healing Status: Acute Current Visit: No Code(s): T14.8XXD - Other injury of unspecified body region, subsequent encounter History of Present Illness Chief Complaint: Ulcer to left heel History of Wound: Patient is a poor historian. He presents back to wound healing center again today after being referred from his primary care doctor for ulcers to the left third and fourth toes. Patient says he was out putting up a fence in July and he feels he may have created ulcers to his third and fourth toe at this time. He has tried to treat them on his own with Neosporin and a bandage, but he has not seen any significant improvement. He relates that his primary care doctor recently started him on a course of antibiotics, but he is unsure what he is taking. He says he has not noticed any redness, malodor, or any pus from the area. He currently denies any feelings of nausea, vomiting, fever, or chills. Past Medical History Past Medical History: Chronic Problems (Last Updated 06/02/18 @ 13:27 by Eloisa Mireles) Chronic ulcer of left foot with fat layer exposed (Chronic) Cardiac murmur (Chronic) Congestive heart failure (Chronic) Hypertension (Chronic) Edema (Chronic) Allergies/Adverse Reactions: Allergies Sulfa (Sulfonamide Antibiotics) Allergy (Verified 06/02/18 13:25) Rash Home Medications: Ambulatory Orders Medication Instructions Recorded Tamsulosin HCl [Flomax] 0.4 mg PO DAILY 11/24/17 potassium chloride ER 20 mEq 20 meq PO QDAY 02/27/18 tablet,extended release furosemide 40 mg tablet 40 mg PO BID 06/02/18 losartan 100 mg tablet 100 mg PO DAILY 06/02/18 metolazone 2.5 mg tablet 2.5 mg PO .Tuesday and 06/02/18 #10 tab Aspirin, Baby 81 mg BC DAILY 09/07/18 Smoking Status: Former smoker Review of Systems Constitutional: Denies: Chills, Fever, Weight Change Respiratory: Denies: Cough, Shortness of Breath Gastrointestinal: Denies: Diarrhea, Nausea, Vomiting Skin: Reports: - - Ulcers to left toes - Physical Exam Vital Signs Temp Pulse Resp BP 98.2 F 85 16 128/89 H 09/07/18 10:33 09/07/18 10:33 09/07/18 10:33 09/07/18 10:33 General: Alert, Oriented x3, Cooperative, No apparent distress Extremities: No cyanosis, Capillary Refill Less than 3 Seconds - To all distal digits of the left foot, No Calf Tenderness - Negative Alicia and Bishop sign, Diminished Peripheral Pulses - PT pulses palpable and DP pulses nonpalpable due to edema, Edema - Bilateral pitting lower extremity edema Skin: Ulcer/ Wound - Ulcer with fat layer exposed noted to left dorsal third and fourth toes. Measurements are noted below. The bases are noted to be a mixture of adherent slough, fibrin, and granular tissue. There is no surrounding or extending cellulitis, no purulence, no malodor, no increased warmth, no probing to bone, no tracking, no undermining Wound Measurements and Assessment WC - Nurse 1 - General Ulcer Measurement Start: 09/07/18 10:32 Freq: Status: Active Protocol: Activity Type Activity Date Activity User E-Sign Co-Sign Detail Recorded Client Recorded Date Recorded By Document 09/07/18 10:33 RI [id number] 09/07/18 10:46 MT 09/07/18 10:33 Wound Center Nurse 1 [Ulcer Assessment] #3 Left 4th Toe -Combined with other wound No -Current Size (cm) - Length 2.4 -Current Size (cm) - Width 1.3 -Current Size (cm) - Depth 0 -Total Square Cm 3.12 -Date of Last Picture (Recall this 09/07/18 field) -Photo Taken Yes -Tunneling No -Undermining/Tunneling No -Circular Undermining No -Exudate Amt Small (1-33%) -Exudate Type Serous -Wound Margin Flat & Intact -Granulation Amt Large (67-100%) -Granulation Quality Pale [employer] -Slough/Fibrin No -Necrotic Tissue Type Adherent Slough -Texture (Radha-wound Skin Appearance) Assessed -Moisture (Radha-wound Skin Appearance Assessed ) Maceration -Color (Radha-wound Skin Appearance) Assessed Erythema -Temperature (Radha-wound Skin No Abnormality Appearance) (Pt Warm) -Tenderness on Palpation (Radha-wound No Skin Appearance) -Ulcer Cleansing Wound Cleanser -Foul Odor after Cleansing No -Anesthetic Used 4% Lidocaine Solution #2 Left 3rd Toe -Combined with other wound No -Current Size (cm) - Length 1 -Current Size (cm) - Width 0.4 -Current Size (cm) - Depth 0 -Total Square Cm 0.4 -Date of Last Picture (Recall this 09/07/18 field) -Photo Taken Yes -Tunneling No -Undermining/Tunneling No -Circular Undermining No -Exudate Amt Small (1-33%) -Exudate Type Serous -Wound Margin Flat & Intact -Granulation Amt Large (67-100%) -Granulation Quality Pale [employer] -Necrosis Amt Small (1-33%) -Necrotic Tissue Type Adherent Slough -Texture (Radha-wound Skin Appearance) Assessed Localized Edema -Moisture (Radha-wound Skin Appearance Assessed ) Maceration -Color (Radha-wound Skin Appearance) Assessed Erythema -Temperature (Radha-wound Skin No Abnormality Appearance) (Pt Warm) -Tenderness on Palpation (Radha-wound No Skin Appearance) -Ulcer Cleansing Wound Cleanser -Foul Odor after Cleansing No -Anesthetic Used 4% Lidocaine Solution [Edema Assessment] -Left Calf (cm) 40 -Left Ankle (cm) 26 WC - Nurse 2 - General Ulcer CM Notes Start: 09/07/18 10:32 Freq: Status: Active Protocol: Activity Type Activity Date Activity User E-Sign Co-Sign Detail Recorded Client Recorded Date Recorded By Document 09/07/18 11:15 DV [id number] 09/07/18 11:24 DV 09/07/18 11:15 Wound Center Nurse 2 [Procedure/Treatment] #3 Left 4th Toe -Time 11:22 -Correct Patient Yes -Correct Side, Site, Position Yes -Correct Procedure Yes -Procedure Performed Yes -Type of Procedure Debridement -Clinical Debridement Subcutaneous -Post Debridement Size (cm) - Length 2.2 -Post Debridement Size (cm) - Width 1.7 -Post Debridement Size (cm) - Depth 0.1 -Total Square Cm 3.74 -Wound/Ulcer Outcome Not Healed -Ulcer Cleansing Rinsed/ Irrigated with Saline -Foul Odor after Cleansing No -Bioengineered Tissue No -Bleeding Controlled with Pressure -Offloading No -Treatment Response Procedure Tolerated Well #2 Left 3rd Toe -Time 11:22 -Correct Patient Yes -Correct Side, Site, Position Yes -Correct Procedure Yes -Procedure Performed Yes -Type of Procedure Debridement -Clinical Debridement Subcutaneous -Post Debridement Size (cm) - Length 1.2 -Post Debridement Size (cm) - Width 0.4 -Post Debridement Size (cm) - Depth 0.1 -Total Square Cm 0.48 -Wound/Ulcer Outcome Not Healed -Ulcer Cleansing Rinsed/ Irrigated with Saline -Foul Odor after Cleansing No -Bioengineered Tissue No -Bleeding Controlled with Pressure -Offloading No -Treatment Response Procedure Tolerated Well [See Physician Procedure note for Specifics] Pain Scale: 0-10 Numeric [Pain] -Is Patient Pain Free? Yes Musculoskeletal: Tenderness - With manipulation of ulcer sites Neurological: Sensory exam intact to light touch and pain Psych/Mental Status: Normal Affect, Appropriate Debridement Note Post-Debridement Measurements/Treatment WC - Nurse 2 - General Ulcer CM Notes Start: 09/07/18 10:32 Freq: Status: Active Protocol: Activity Type Activity Date Activity User E-Sign Co-Sign Detail Recorded Client Recorded Date Recorded By Document 09/07/18 11:15 DV [id number] 09/07/18 11:24 DV 09/07/18 11:15 Wound Center Nurse 2 #3 Left 4th Toe -Time 11:22 -Correct Patient Yes -Correct Side, Site, Position Yes -Correct Procedure Yes -Procedure Performed Yes -Type of Procedure Debridement -Clinical Debridement Subcutaneous -Post Debridement Size (cm) - Length 2.2 -Post Debridement Size (cm) - Width 1.7 -Post Debridement Size (cm) - Depth 0.1 -Total Square Cm 3.74 -Wound/Ulcer Outcome Not Healed -Ulcer Cleansing Rinsed/ Irrigated with Saline -Foul Odor after Cleansing No -Bioengineered Tissue No -Bleeding Controlled with Pressure -Offloading No -Treatment Response Procedure Tolerated Well #2 Left 3rd Toe -Time 11:22 -Correct Patient Yes -Correct Side, Site, Position Yes -Correct Procedure Yes -Procedure Performed Yes -Type of Procedure Debridement -Clinical Debridement Subcutaneous -Post Debridement Size (cm) - Length 1.2 -Post Debridement Size (cm) - Width 0.4 -Post Debridement Size (cm) - Depth 0.1 -Total Square Cm 0.48 -Wound/Ulcer Outcome Not Healed -Ulcer Cleansing Rinsed/ Irrigated with Saline -Foul Odor after Cleansing No -Bioengineered Tissue No -Bleeding Controlled with Pressure -Offloading No -Treatment Response Procedure Tolerated Well Pain Scale: 0-10 Numeric Is Patient Pain Free? Yes Wound debrided: Left dorsal third toe Laterality: Right Type of Debridement: Excisional debridement Anesthesia Used: 4% Lidocaine Solution Depth: in the subcutaneous layer Percentage of wound debrided: 100 Instrument Used: 7mm curette Tissue Removed: Adherent slough, fibrin Severity: Fat Layer Exposed Amount of bleeding with debridement: Mild Bleeding Controlled with: Pressure Patient tolerated procedure well - Additional Wound Wound debrided: Left dorsal fourth toe Laterality: Left Type of Debridement: Excisional debridement Anesthesia Used: 4% Lidocaine Solution Depth: in the subcutaneous layer Percentage of wound debrided: 100 Instrument Used: 7mm curette Tissue Removed: Adherent slough, fibrin Severity: Fat Layer Exposed Amount of bleeding with debridement: Mild Bleeding Controlled with: Pressure Patient tolerated procedure: Patient tolerated procedure well Assessment/Plan Active Problems (Last Updated 06/02/18 @ 13:27 by Eloisa Mireles) Chronic ulcer of left foot with fat layer exposed (Chronic) Pain in left toe(s) (Acute) Assessment: Ulcer to left 3rd and 4th toes, lower extremity edema Plan: Patient was examined and evaluated again today. Subcutaneous debridement was performed as noted in the clinical panel. Once complete, each ulcer site was dressed with slightly moistened Joselyn followed by dry sterile dressing. Patient is to continue with daily dressings in this manner with the help of his son. A surgical shoe was dispensed this patient in order to take all pressure off of the dorsal toes of the left foot. He was instructed to wear this at all times and to not wearing normal shoe until his ulcers have healed completely. Patient is to wear Tubigrip's as instructed. Patient's recent ADIN studies and venous Doppler exam that were performed at another facility were read and full report is in the patient's chart. Patient was educated on all signs and symptoms of local and systemic infection, and he is instructed to go to the emergency room immediately should he notice any. All other questions were answered to the patient's satisfaction. Patient will follow-up at the wound healing center in 1 week to check on progress, but he was instructed to follow-up sooner if needed.
[2018-09-14 09:36] VITALS: BP 184/94; PULSE 70; RESP 16; TEMP 36.1; BMI 28.5
--- NOTE | 2018-09-14 09:55 | PCM.WC.PN ---
(1) Chronic ulcer of left foot with fat layer exposed Status: Chronic Current Visit: Yes Code(s): L97.522 - Non-pressure chronic ulcer of other part of left foot with fat layer exposed (2) Pain in left toe(s) Status: Acute Current Visit: Yes Code(s): M79.675 - Pain in left toe(s) (3) Lower extremity edema Status: Acute Current Visit: No Code(s): R60.0 - Localized edema (4) Delayed wound healing Status: Acute Current Visit: No Code(s): T14.8XXD - Other injury of unspecified body region, subsequent encounter Type of Wound Chief Complaint: Ulcer to left 3rd and 4th toes History of Wound: Patient is a poor historian. He presents back to wound healing center again today after being referred from his primary care doctor for ulcers to the left third and fourth toes. Patient says he was out putting up a fence in July and he feels he may have created ulcers to his third and fourth toe at this time. He has tried to treat them on his own with Neosporin and a bandage, but he has not seen any significant improvement. He relates that his primary care doctor recently started him on a course of antibiotics, but he is unsure what he is taking. He says he has not noticed any redness, malodor, or any pus from the area. He currently denies any feelings of nausea, vomiting, fever, or chills. Progress of Wound: Ulcers to left 3rd and 4th toes show improvement this week. Patient has had daily daisha dressing changes with help of his son. Patient says he has been wearing offloading surgical shoe. He denies any nausea, vomiting, fever, or chills. - Physical Exam Vital Signs Temp Pulse Resp BP 97 F L 70 16 184/94 H 09/14/18 09:36 09/14/18 09:36 09/14/18 09:36 09/14/18 09:36 General: Alert, Oriented x3, Cooperative, No apparent distress Extremities: No cyanosis, Capillary Refill Less than 3 Seconds - To distal digits of the left foot, No Calf Tenderness - Negative Alicia and Bishop sign, Diminished Peripheral Pulses - PT pulses palpable and DP pulses nonpalpable due to edema, Edema - Bilateral pitting lower extremity edema Skin: Ulcer/ Wound - Ulcers with fat layer exposed noted to the left dorsal third and fourth toes. Measurements noted below. Improvement noted this week. The bases are noted to be a measure of adherent slough, fibrin, and granular tissue. There continues to be no surrounding or extending cellulitis, no purulence, no malodor, no increase in warmth, no probing to bone, no tracking, no undermining at this time. Wound Measurements and Assessment WC - Nurse 1 - General Ulcer Measurement Start: 09/07/18 10:32 Freq: Status: Active Protocol: Activity Type Activity Date Activity User E-Sign Co-Sign Detail Recorded Client Recorded Date Recorded By Document 09/14/18 09:36 SD [id number] 09/14/18 09:40 SD 09/14/18 09:36 Wound Center Nurse 1 [Ulcer Assessment] #3 Left 4th Toe -Combined with other wound No -Current Size (cm) - Length 1 -Current Size (cm) - Width 1.2 -Current Size (cm) - Depth 0.1 -Total Square Cm 1.2 -Photo Taken No -Tunneling No -Undermining/Tunneling No -Circular Undermining No -Exudate Amt Small -Exudate Type Serosanguineous -Wound Margin Flat & Intact -Granulation Amt Medium (34-66%) -Granulation Quality [place] Red -Necrosis Amt Medium (34-66%) -Necrotic Tissue Type Adherent Slough -Texture (Radha-wound Skin Appearance) Assessed -Moisture (Radha-wound Skin Appearance Assessed ) Maceration -Color (Radha-wound Skin Appearance) Assessed -Temperature (Radha-wound Skin No Abnormality Appearance) (Pt Warm) -Tenderness on Palpation (Radha-wound No Skin Appearance) -Ulcer Cleansing Wound Cleanser -Foul Odor after Cleansing No -Anesthetic Used 4% Lidocaine Solution #2 Left 3rd Toe -Combined with other wound No -Current Size (cm) - Length 1 -Current Size (cm) - Width 0.5 -Current Size (cm) - Depth 0.1 -Total Square Cm 0.5 -Photo Taken No -Epithelialization Large 67-100% -Tunneling No -Undermining/Tunneling No -Circular Undermining No -Exudate Amt None Present -Wound Margin Flat & Intact -Granulation Amt Large (67-100%) -Granulation Quality Pale [place] -Slough/Fibrin No -Texture (Radha-wound Skin Appearance) Assessed Scarring -Moisture (Rdaha-wound Skin Appearance Assessed ) -Color (Radha-wound Skin Appearance) Assessed -Temperature (Radha-wound Skin No Abnormality Appearance) (Pt Warm) -Tenderness on Palpation (Radha-wound No Skin Appearance) -Ulcer Cleansing Wound Cleanser -Foul Odor after Cleansing No -Anesthetic Used 4% Lidocaine Solution [Edema Assessment] -Left Calf (cm) 37.5 -Left Ankle (cm) 26.5 WC - Nurse 2 - General Ulcer CM Notes Start: 09/07/18 10:32 Freq: Status: Active Protocol: Activity Type Activity Date Activity User E-Sign Co-Sign Detail Recorded Client Recorded Date Recorded By Document 09/14/18 09:51 DV [id number] 09/14/18 09:54 DV 09/14/18 09:51 Wound Center Nurse 2 [Procedure/Treatment] #3 Left 4th Toe -Time 09:52 -Correct Patient Yes -Correct Side, Site, Position Yes -Correct Procedure Yes -Procedure Performed Yes -Type of Procedure Debridement -Clinical Debridement Subcutaneous -Post Debridement Size (cm) - Length 2.2 -Post Debridement Size (cm) - Width 1.4 -Post Debridement Size (cm) - Depth 0.1 -Total Square Cm 3.08 -Wound/Ulcer Outcome Not Healed -Ulcer Cleansing Rinsed/ Irrigated with Saline -Foul Odor after Cleansing No -Bioengineered Tissue No -Bleeding Controlled with Pressure -Offloading No -Treatment Response Procedure Tolerated Well #2 Left 3rd Toe -Time 09:52 -Correct Patient Yes -Correct Side, Site, Position Yes -Correct Procedure Yes -Procedure Performed Yes -Type of Procedure Debridement -Clinical Debridement Subcutaneous -Post Debridement Size (cm) - Length 0.8 -Post Debridement Size (cm) - Width 0.2 -Post Debridement Size (cm) - Depth 0.1 -Total Square Cm 0.16 -Wound/Ulcer Outcome Not Healed -Ulcer Cleansing Rinsed/ Irrigated with Saline -Foul Odor after Cleansing No -Bioengineered Tissue No -Bleeding Controlled with Pressure -Offloading No -Treatment Response Procedure Tolerated Well [See Physician Procedure note for Specifics] Pain Scale: 0-10 Numeric [Pain] -Is Patient Pain Free? Yes Musculoskeletal: Tenderness - With manipulation of ulcer sites Neurological: Sensory exam intact to light touch and pain Psych/Mental Status: Normal Affect, Appropriate Debridement Note Post-Debridement Measurements/Treatment WC - Nurse 2 - General Ulcer CM Notes Start: 09/07/18 10:32 Freq: Status: Active Protocol: Activity Type Activity Date Activity User E-Sign Co-Sign Detail Recorded Client Recorded Date Recorded By Document 09/07/18 11:15 DV [id number] 09/07/18 11:24 DV Document 09/14/18 09:51 DV [id number] 09/14/18 09:54 DV 09/07/18 09/14/18 11:15 09:51 Wound Center Nurse 2 #3 Left 4th Toe -Time 11:22 09:52 -Correct Patient Yes Yes -Correct Side, Site, Position Yes Yes -Correct Procedure Yes Yes -Procedure Performed Yes Yes -Type of Procedure Debridement Debridement -Clinical Debridement Subcutaneous Subcutaneous -Post Debridement Size (cm) - Length 2.2 2.2 -Post Debridement Size (cm) - Width 1.7 1.4 -Post Debridement Size (cm) - Depth 0.1 0.1 -Total Square Cm 3.74 3.08 -Wound/Ulcer Outcome Not Healed Not Healed -Ulcer Cleansing Rinsed/ Rinsed/ Irrigated with Irrigated with Saline Saline -Foul Odor after Cleansing No No -Bioengineered Tissue No No -Bleeding Controlled with Pressure Pressure -Offloading No No -Treatment Response Procedure Procedure Tolerated Well Tolerated Well #2 Left 3rd Toe -Time 11: 09:52 -Correct Patient Yes Yes -Correct Side, Site, Position Yes Yes -Correct Procedure Yes Yes -Procedure Performed Yes Yes -Type of Procedure Debridement Debridement -Clinical Debridement Subcutaneous Subcutaneous -Post Debridement Size (cm) - Length 1.2 0.8 -Post Debridement Size (cm) - Width 0.4 0.2 -Post Debridement Size (cm) - Depth 0.1 0.1 -Total Square Cm 0.48 0.16 -Wound/Ulcer Outcome Not Healed Not Healed -Ulcer Cleansing Rinsed/ Rinsed/ Irrigated with Irrigated with Saline Saline -Foul Odor after Cleansing No No -Bioengineered Tissue No No -Bleeding Controlled with Pressure Pressure -Offloading No No -Treatment Response Procedure Procedure Tolerated Well Tolerated Well Pain Scale: 0-10 Numeric Is Patient Pain Free? Yes Yes Wound debrided: Left dorsal third toe Laterality: Left Type of Debridement: Excisional debridement Anesthesia Used: 4% Lidocaine Solution Depth: in the subcutaneous layer Percentage of wound debrided: 100 Instrument Used: Combinature Biopharmm curette Tissue Removed: Adherent slough, fibrin Severity: Fat Layer Exposed Amount of bleeding with debridement: Mild Bleeding Controlled with: Pressure Patient tolerated procedure well - Additional Wound Wound debrided: Left dorsal fourth toe Laterality: Left Type of Debridement: Excisional debridement Anesthesia Used: 4% Lidocaine Solution Depth: in the subcutaneous layer Percentage of wound debrided: 100 Instrument Used: 3mm curette Tissue Removed: Adherent slough, fibrin Severity: Fat Layer Exposed Amount of bleeding with debridement: Mild Bleeding Controlled with: Pressure Patient tolerated procedure: Patient tolerated procedure well Assessment/Plan Active Problems (Last Updated 06/02/18 @ 13:27 by Eloisa Mireles) Chronic ulcer of left foot with fat layer exposed (Chronic) Pain in left toe(s) (Acute) Assessment: Ulcer to left 3rd and 4th toes, lower extremity edema Plan: Patient was examined and evaluated again today. Subcutaneous debridement was performed as noted in the clinical panel. Once complete, each ulcer site was dressed with slightly moistened Daisha followed by dry sterile dressing. Patient is to continue with daily dressings in this manner with the help of his son. Patient is instructed to also continue with offloading surgical shoe at all times weight bearing. Patient is to wear Tubigrip's as instructed. Patient's recent ADIN studies and venous Doppler exam that were performed at another facility were read last week and full report is in the patient's chart. Patient was educated on all signs and symptoms of local and systemic infection, and he is instructed to go to the emergency room immediately should he notice any. All other questions were answered to the patient's satisfaction. Patient will follow-up at the wound healing center in 1 week to check on progress, but he was instructed to follow-up sooner if needed.
--- NOTE | 2018-09-14 09:59 | PN.PCM_ITS ---
(1) Chronic ulcer of left foot with fat layer exposed Status: Chronic Current Visit: Yes Code(s): L97.522 - Non-pressure chronic ulcer of other part of left foot with fat layer exposed (2) Pain in left toe(s) Status: Acute Current Visit: Yes Code(s): M79.675 - Pain in left toe(s) (3) Lower extremity edema Status: Acute Current Visit: No Code(s): R60.0 - Localized edema (4) Delayed wound healing Status: Acute Current Visit: No Code(s): T14.8XXD - Other injury of unspecified body region, subsequent encounter Type of Wound Chief Complaint: Ulcer to left 3rd and 4th toes History of Wound: Patient is a poor historian. He presents back to wound healing center again today after being referred from his primary care doctor for ulcers to the left third and fourth toes. Patient says he was out putting up a fence in July and he feels he may have created ulcers to his third and fourth toe at this time. He has tried to treat them on his own with Neosporin and a bandage, but he has not seen any significant improvement. He relates that his primary care doctor recently started him on a course of antibiotics, but he is unsure what he is taking. He says he has not noticed any redness, malodor, or any pus from the area. He currently denies any feelings of nausea, vomiting, fever, or chills. Progress of Wound: Ulcers to left 3rd and 4th toes show improvement this week. Patient has had daily daisha dressing changes with help of his son. Patient says he has been wearing offloading surgical shoe. He denies any nausea, vomiting, fever, or chills. - Physical Exam Vital Signs Temp Pulse Resp BP 97 F L 70 16 184/94 H 09/14/18 09:36 09/14/18 09:36 09/14/18 09:36 09/14/18 09:36 General: Alert, Oriented x3, Cooperative, No apparent distress Extremities: No cyanosis, Capillary Refill Less than 3 Seconds - To distal digits of the left foot, No Calf Tenderness - Negative Alicia and Bishop sign, Diminished Peripheral Pulses - PT pulses palpable and DP pulses nonpalpable due to edema, Edema - Bilateral pitting lower extremity edema Skin: Ulcer/ Wound - Ulcers with fat layer exposed noted to the left dorsal third and fourth toes. Measurements noted below. Improvement noted this week. The bases are noted to be a measure of adherent slough, fibrin, and granular tissue. There continues to be no surrounding or extending cellulitis, no purulence, no malodor, no increase in warmth, no probing to bone, no tracking, no undermining at this time. Wound Measurements and Assessment WC - Nurse 1 - General Ulcer Measurement Start: 09/07/18 10:32 Freq: Status: Active Protocol: Activity Type Activity Date Activity User E-Sign Co-Sign Detail Recorded Client Recorded Date Recorded By Document 09/14/18 09:36 MO [id number] 09/14/18 09:40 MO 09/14/18 09:36 Wound Center Nurse 1 [Ulcer Assessment] #3 Left 4th Toe -Combined with other wound No -Current Size (cm) - Length 1 -Current Size (cm) - Width 1.2 -Current Size (cm) - Depth 0.1 -Total Square Cm 1.2 -Photo Taken No -Tunneling No -Undermining/Tunneling No -Circular Undermining No -Exudate Amt Small -Exudate Type Serosanguineous -Wound Margin Flat & Intact -Granulation Amt Medium (34-66%) -Granulation Quality [place] Red -Necrosis Amt Medium (34-66%) -Necrotic Tissue Type Adherent Slough -Texture (Radha-wound Skin Appearance) Assessed -Moisture (Radha-wound Skin Appearance Assessed ) Maceration -Color (Radha-wound Skin Appearance) Assessed -Temperature (Radha-wound Skin No Abnormality Appearance) (Pt Warm) -Tenderness on Palpation (Radha-wound No Skin Appearance) -Ulcer Cleansing Wound Cleanser -Foul Odor after Cleansing No -Anesthetic Used 4% Lidocaine Solution #2 Left 3rd Toe -Combined with other wound No -Current Size (cm) - Length 1 -Current Size (cm) - Width 0.5 -Current Size (cm) - Depth 0.1 -Total Square Cm 0.5 -Photo Taken No -Epithelialization Large 67-100% -Tunneling No -Undermining/Tunneling No -Circular Undermining No -Exudate Amt None Present -Wound Margin Flat & Intact -Granulation Amt Large (67-100%) -Granulation Quality Pale [place] -Slough/Fibrin No -Texture (Radha-wound Skin Appearance) Assessed Scarring -Moisture (Radha-wound Skin Appearance Assessed ) -Color (Radha-wound Skin Appearance) Assessed -Temperature (Radha-wound Skin No Abnormality Appearance) (Pt Warm) -Tenderness on Palpation (Radha-wound No Skin Appearance) -Ulcer Cleansing Wound Cleanser -Foul Odor after Cleansing No -Anesthetic Used 4% Lidocaine Solution [Edema Assessment] -Left Calf (cm) 37.5 -Left Ankle (cm) 26.5 WC - Nurse 2 - General Ulcer CM Notes Start: 09/07/18 10:32 Freq: Status: Active Protocol: Activity Type Activity Date Activity User E-Sign Co-Sign Detail Recorded Client Recorded Date Recorded By Document 09/14/18 09:51 DV [id number] 09/14/18 09:54 DV 09/14/18 09:51 Wound Center Nurse 2 [Procedure/Treatment] #3 Left 4th Toe -Time 09:52 -Correct Patient Yes -Correct Side, Site, Position Yes -Correct Procedure Yes -Procedure Performed Yes -Type of Procedure Debridement -Clinical Debridement Subcutaneous -Post Debridement Size (cm) - Length 2.2 -Post Debridement Size (cm) - Width 1.4 -Post Debridement Size (cm) - Depth 0.1 -Total Square Cm 3.08 -Wound/Ulcer Outcome Not Healed -Ulcer Cleansing Rinsed/ Irrigated with Saline -Foul Odor after Cleansing No -Bioengineered Tissue No -Bleeding Controlled with Pressure -Offloading No -Treatment Response Procedure Tolerated Well #2 Left 3rd Toe -Time 09:52 -Correct Patient Yes -Correct Side, Site, Position Yes -Correct Procedure Yes -Procedure Performed Yes -Type of Procedure Debridement -Clinical Debridement Subcutaneous -Post Debridement Size (cm) - Length 0.8 -Post Debridement Size (cm) - Width 0.2 -Post Debridement Size (cm) - Depth 0.1 -Total Square Cm 0.16 -Wound/Ulcer Outcome Not Healed -Ulcer Cleansing Rinsed/ Irrigated with Saline -Foul Odor after Cleansing No -Bioengineered Tissue No -Bleeding Controlled with Pressure -Offloading No -Treatment Response Procedure Tolerated Well [See Physician Procedure note for Specifics] Pain Scale: 0-10 Numeric [Pain] -Is Patient Pain Free? Yes Musculoskeletal: Tenderness - With manipulation of ulcer sites Neurological: Sensory exam intact to light touch and pain Psych/Mental Status: Normal Affect, Appropriate Debridement Note Post-Debridement Measurements/Treatment WC - Nurse 2 - General Ulcer CM Notes Start: 09/07/18 10:32 Freq: Status: Active Protocol: Activity Type Activity Date Activity User E-Sign Co-Sign Detail Recorded Client Recorded Date Recorded By Document 09/07/18 11:15 DV [id number] 09/07/18 11:24 DV Document 09/14/18 09:51 DV [id number] 09/14/18 09:54 DV 09/07/18 09/14/18 11:15 09:51 Wound Center Nurse 2 #3 Left 4th Toe -Time 11:22 09:52 -Correct Patient Yes Yes -Correct Side, Site, Position Yes Yes -Correct Procedure Yes Yes -Procedure Performed Yes Yes -Type of Procedure Debridement Debridement -Clinical Debridement Subcutaneous Subcutaneous -Post Debridement Size (cm) - Length 2.2 2.2 -Post Debridement Size (cm) - Width 1.7 1.4 -Post Debridement Size (cm) - Depth 0.1 0.1 -Total Square Cm 3.74 3.08 -Wound/Ulcer Outcome Not Healed Not Healed -Ulcer Cleansing Rinsed/ Rinsed/ Irrigated with Irrigated with Saline Saline -Foul Odor after Cleansing No No -Bioengineered Tissue No No -Bleeding Controlled with Pressure Pressure -Offloading No No -Treatment Response Procedure Procedure Tolerated Well Tolerated Well #2 Left 3rd Toe -Time 11: 09:52 -Correct Patient Yes Yes -Correct Side, Site, Position Yes Yes -Correct Procedure Yes Yes -Procedure Performed Yes Yes -Type of Procedure Debridement Debridement -Clinical Debridement Subcutaneous Subcutaneous -Post Debridement Size (cm) - Length 1.2 0.8 -Post Debridement Size (cm) - Width 0.4 0.2 -Post Debridement Size (cm) - Depth 0.1 0.1 -Total Square Cm 0.48 0.16 -Wound/Ulcer Outcome Not Healed Not Healed -Ulcer Cleansing Rinsed/ Rinsed/ Irrigated with Irrigated with Saline Saline -Foul Odor after Cleansing No No -Bioengineered Tissue No No -Bleeding Controlled with Pressure Pressure -Offloading No No -Treatment Response Procedure Procedure Tolerated Well Tolerated Well Pain Scale: 0-10 Numeric Is Patient Pain Free? Yes Yes Wound debrided: Left dorsal third toe Laterality: Left Type of Debridement: Excisional debridement Anesthesia Used: 4% Lidocaine Solution Depth: in the subcutaneous layer Percentage of wound debrided: 100 Instrument Used: The [employer] curette Tissue Removed: Adherent slough, fibrin Severity: Fat Layer Exposed Amount of bleeding with debridement: Mild Bleeding Controlled with: Pressure Patient tolerated procedure well - Additional Wound Wound debrided: Left dorsal fourth toe Laterality: Left Type of Debridement: Excisional debridement Anesthesia Used: 4% Lidocaine Solution Depth: in the subcutaneous layer Percentage of wound debrided: 100 Instrument Used: 3mm curette Tissue Removed: Adherent slough, fibrin Severity: Fat Layer Exposed Amount of bleeding with debridement: Mild Bleeding Controlled with: Pressure Patient tolerated procedure: Patient tolerated procedure well Assessment/Plan Active Problems (Last Updated 06/02/18 @ 13:27 by Eloisa Mireles) Chronic ulcer of left foot with fat layer exposed (Chronic) Pain in left toe(s) (Acute) Assessment: Ulcer to left 3rd and 4th toes, lower extremity edema Plan: Patient was examined and evaluated again today. Subcutaneous debridement was performed as noted in the clinical panel. Once complete, each ulcer site was dressed with slightly moistened Daisha followed by dry sterile dressing. Patient is to continue with daily dressings in this manner with the help of his son. Patient is instructed to also continue with offloading surgical shoe at all times weight bearing. Patient is to wear Tubigrip's as instructed. Patient's recent ADIN studies and venous Doppler exam that were performed at another facility were read last week and full report is in the patient's chart. Patient was educated on all signs and symptoms of local and systemic infection, and he is instructed to go to the emergency room immediately should he notice any. All other questions were answered to the patient's satisfaction. Patient will follow-up at the wound healing center in 1 week to check on progress, but he was instructed to follow-up sooner if needed.
[2018-09-21 08:52] VITALS: BP 184/84; PULSE 72; RESP 18; TEMP 36.2; BMI 28.5
--- NOTE | 2018-09-21 09:24 | PN.PCM_ITS ---
(1) Chronic ulcer of left foot with fat layer exposed Status: Chronic Current Visit: Yes Code(s): L97.522 - Non-pressure chronic ulcer of other part of left foot with fat layer exposed (2) Pain in left toe(s) Status: Acute Current Visit: Yes Code(s): M79.675 - Pain in left toe(s) (3) Lower extremity edema Status: Acute Current Visit: No Code(s): R60.0 - Localized edema (4) Delayed wound healing Status: Acute Current Visit: No Code(s): T14.8XXD - Other injury of unspecified body region, subsequent encounter Type of Wound Chief Complaint: Ulcer to left 3rd and 4th toes History of Wound: Patient is a poor historian. He presents back to wound healing center again today after being referred from his primary care doctor for ulcers to the left third and fourth toes. Patient says he was out putting up a fence in July and he feels he may have created ulcers to his third and fourth toe at this time. He has tried to treat them on his own with Neosporin and a bandage, but he has not seen any significant improvement. He relates that his primary care doctor recently started him on a course of antibiotics, but he is unsure what he is taking. He says he has not noticed any redness, malodor, or any pus from the area. He currently denies any feelings of nausea, vomiting, fever, or chills. Progress of Wound: Ulcers to left 3rd and 4th toes show improvement this week. 3rd toe is healed. Patient has had daily daisha dressing changes with help of his son. Patient says he has been wearing offloading surgical shoe. He denies any nausea, vomiting, fever, or chills. - Physical Exam Vital Signs Temp Pulse Resp BP 97.1 F L 72 18 184/84 H 09/21/18 08:52 09/21/18 08:52 09/21/18 08:52 09/21/18 08:52 General: Alert, Oriented x3, Cooperative, No apparent distress Extremities: Capillary Refill Less than 3 Seconds - To distal digits of the left foot, No Calf Tenderness - Negative Alicia and Bishop sign, Diminished Peripheral Pulses - PT pulses palpable and DP pulses nonpalpable due to edema, Edema - Bilateral pitting lower extremity edema Skin: Ulcer/ Wound - Ulcer with fat layer exposed to the left dorsal fourth toe. Left dorsal third toe appears healed at this time. Measurements are noted below. The base continues to be a mixture of adherent slough, fibrin, granular tissue as well as some slight surrounding hyperkeratotic tissue. There continues to be no surrounding or extending cellulitis, no purulence, no malodor, no increase in warmth, no probing to bone, no tracking, no undermining. Wound Measurements and Assessment WC - Nurse 1 - General Ulcer Measurement Start: 09/07/18 10:32 Freq: Status: Active Protocol: Activity Type Activity Date Activity User E-Sign Co-Sign Detail Recorded Client Recorded Date Recorded By Document 09/21/18 08:52 [id number] 09/21/18 08:58 09/21/18 08:52 Wound Center Nurse 1 [Ulcer Assessment] #3 Left 4th Toe -Combined with other wound No -Current Size (cm) - Length 0.8 -Current Size (cm) - Width 1.2 -Current Size (cm) - Depth 0.1 -Total Square Cm 0.96 -Photo Taken No -Epithelialization None Present -Tunneling No -Undermining/Tunneling No -Circular Undermining No -Exudate Amt Small -Exudate Type Serosanguineous -Wound Margin Distinct, Outline Attached -Granulation Amt Large (67-100%) -Granulation Quality Pale [place] -Necrosis Amt Large (67-100%) -Necrotic Tissue Type Adherent Slough -Structure Exposed None/Limited to Skin Breakdown -Texture (Radha-wound Skin Appearance) No Abnormality Assessed -Moisture (Radha-wound Skin Appearance Maceration ) -Color (Radha-wound Skin Appearance) No Abnormality Assessed -Temperature (Radha-wound Skin No Abnormality Appearance) (Pt Warm) -Tenderness on Palpation (Radha-wound No Skin Appearance) -Ulcer Cleansing Rinsed/ Irrigated with Saline -Foul Odor after Cleansing No -Anesthetic Used 4% Lidocaine Solution #2 Left 3rd Toe -Combined with other wound No -Current Size (cm) - Length 0.8 -Current Size (cm) - Width 0.2 -Current Size (cm) - Depth 0 -Total Square Cm 0.16 -Photo Taken No -Epithelialization Small 1-33% -Tunneling No -Undermining/Tunneling No -Circular Undermining No -Exudate Amt None Present -Granulation Amt None Present (0 %) -Slough/Fibrin Yes -Necrosis Amt Large (67-100%) -Necrotic Tissue Type Adherent Slough -Texture (Radha-wound Skin Appearance) Callus -Moisture (Radha-wound Skin Appearance Dry/Scaly ) -Color (Radha-wound Skin Appearance) No Abnormality Assessed -Temperature (Radha-wound Skin No Abnormality Appearance) (Pt Warm) -Tenderness on Palpation (Radha-wound No Skin Appearance) -Ulcer Cleansing Rinsed/ Irrigated with Saline -Foul Odor after Cleansing No -Anesthetic Used 4% Lidocaine Solution [Edema Assessment] -Lower Limb Edema Present NA Musculoskeletal: Tenderness - With manipulation of ulcer site Neurological: Sensory exam intact to light touch and pain Psych/Mental Status: Normal Affect, Appropriate Debridement Note Post-Debridement Measurements/Treatment WC - Nurse 2 - General Ulcer CM Notes Start: 09/07/18 10:32 Freq: Status: Active Protocol: Activity Type Activity Date Activity User E-Sign Co-Sign Detail Recorded Client Recorded Date Recorded By Document 09/07/18 11:15 DV [id number] 09/07/18 11:24 DV Document 09/14/18 09:51 DV [id number] 09/14/18 09:54 DV 09/07/18 09/14/18 11:15 09:51 Wound Center Nurse 2 #3 Left 4th Toe -Time 11:22 09:52 -Correct Patient Yes Yes -Correct Side, Site, Position Yes Yes -Correct Procedure Yes Yes -Procedure Performed Yes Yes -Type of Procedure Debridement Debridement -Clinical Debridement Subcutaneous Subcutaneous -Post Debridement Size (cm) - Length 2.2 2.2 -Post Debridement Size (cm) - Width 1.7 1.4 -Post Debridement Size (cm) - Depth 0.1 0.1 -Total Square Cm 3.74 3.08 -Wound/Ulcer Outcome Not Healed Not Healed -Ulcer Cleansing Rinsed/ Rinsed/ Irrigated with Irrigated with Saline Saline -Foul Odor after Cleansing No No -Bioengineered Tissue No No -Bleeding Controlled with Pressure Pressure -Offloading No No -Treatment Response Procedure Procedure Tolerated Well Tolerated Well #2 Left 3rd Toe -Time 11:22 09:52 -Correct Patient Yes Yes -Correct Side, Site, Position Yes Yes -Correct Procedure Yes Yes -Procedure Performed Yes Yes -Type of Procedure Debridement Debridement -Clinical Debridement Subcutaneous Subcutaneous -Post Debridement Size (cm) - Length 1.2 0.8 -Post Debridement Size (cm) - Width 0.4 0.2 -Post Debridement Size (cm) - Depth 0.1 0.1 -Total Square Cm 0.48 0.16 -Wound/Ulcer Outcome Not Healed Not Healed -Ulcer Cleansing Rinsed/ Rinsed/ Irrigated with Irrigated with Saline Saline -Foul Odor after Cleansing No No -Bioengineered Tissue No No -Bleeding Controlled with Pressure Pressure -Offloading No No -Treatment Response Procedure Procedure Tolerated Well Tolerated Well Pain Scale: 0-10 Numeric Is Patient Pain Free? Yes Yes Wound debrided: Left dorsal fourth toe Laterality: Left Type of Debridement: Excisional debridement Anesthesia Used: 4% Lidocaine Solution Depth: in the subcutaneous layer Percentage of wound debrided: 100 Instrument Used: 5mm curette Tissue Removed: Adherent slough, fibrin, hyperkeratotic tissue Severity: Fat Layer Exposed Amount of bleeding with debridement: Mild Bleeding Controlled with: Pressure Patient tolerated procedure well Assessment/Plan Active Problems (Last Updated 06/02/18 @ 13:27 by Eloisa Mireles) Chronic ulcer of left foot with fat layer exposed (Chronic) Pain in left toe(s) (Acute) Assessment: Ulcer to left 3rd and 4th toes, lower extremity edema Plan: Patient was examined and evaluated again today. Subcutaneous debridement was performed as noted in the clinical panel to 4th toe of left foot. 3rd toe ulcer healed today. Once complete, ulcer site was dressed with slightly moistened Daisha followed by dry sterile dressing. Patient is to continue with daily dressings in this manner with the help of his son. Patient is instructed to also continue with offloading surgical shoe at all times weight bearing. Patient is to wear Tubigrip's as instructed. Patient's recent ADIN studies and venous Doppler exam that were performed at another facility were read last week and full report is in the patient's chart. Patient was educated on all signs and symptoms of local and systemic infection, and he is instructed to go to the emergency room immediately should he notice any. All other questions were answered to the patient's satisfaction. Patient will follow-up at the wound healing center in 1 week to check on progress, but he was instructed to follow- up sooner if needed.
[2018-09-28 08:48] VITALS: BP 167/76; PULSE 80; RESP 18; TEMP 36.2; BMI 28.5
--- NOTE | 2018-09-28 09:55 | PCM.WC.PN ---
(1) Chronic ulcer of left foot with fat layer exposed Status: Chronic Current Visit: Yes Code(s): L97.522 - Non-pressure chronic ulcer of other part of left foot with fat layer exposed (2) Pain in left toe(s) Status: Acute Current Visit: Yes Code(s): M79.675 - Pain in left toe(s) (3) Lower extremity edema Status: Acute Current Visit: No Code(s): R60.0 - Localized edema (4) Delayed wound healing Status: Acute Current Visit: No Code(s): T14.8XXD - Other injury of unspecified body region, subsequent encounter Type of Wound Chief Complaint: Ulcer to left 3rd and 4th toes History of Wound: Patient is a poor historian. He presents back to wound healing center again today after being referred from his primary care doctor for ulcers to the left third and fourth toes. Patient says he was out putting up a fence in July and he feels he may have created ulcers to his third and fourth toe at this time. He has tried to treat them on his own with Neosporin and a bandage, but he has not seen any significant improvement. He relates that his primary care doctor recently started him on a course of antibiotics, but he is unsure what he is taking. He says he has not noticed any redness, malodor, or any pus from the area. He currently denies any feelings of nausea, vomiting, fever, or chills. Progress of Wound: Ulcers to left 4th toe shows improvement this week again. Patient has had daily daisha dressing changes with help of his son. Patient says he has been wearing offloading surgical shoe. He denies any nausea, vomiting, fever, or chills. - Physical Exam Vital Signs Temp Pulse Resp BP 97.1 F L 80 18 167/76 H 09/28/18 08:48 09/28/18 08:48 09/28/18 08:48 09/28/18 08:48 General: Alert, Oriented x3, Cooperative, No apparent distress Extremities: Capillary Refill Less than 3 Seconds, No Calf Tenderness - Negative Alicia and Bishop sign, Diminished Peripheral Pulses - PT pulses palpable and DP pulses nonpalpable due to edema, Edema - Bilateral pitting lower extremity edema Skin: Ulcer/ Wound - Ulcer with fat layer exposed to the left dorsal fourth toe. Measurements are noted below. The base continues to be a mixture of adherent slough, fibrin, granular tissue as well as some slight surrounding hyperkeratotic tissue. There continues to be no surrounding or extending cellulitis, no purulence, no malodor, no increase in warmth, no probing to bone, no tracking, no undermining. Wound Measurements and Assessment WC - Nurse 1 - General Ulcer Measurement Start: 09/07/18 10:32 Freq: Status: Active Protocol: Activity Type Activity Date Activity User E-Sign Co-Sign Detail Recorded Client Recorded Date Recorded By Document 09/28/18 08:48 DL [id number] 09/28/18 08:56 DL 09/28/18 08:48 Wound Center Nurse 1 [Ulcer Assessment] #3 Left 4th Toe -Current Size (cm) - Length 0.6 -Current Size (cm) - Width 0.9 -Current Size (cm) - Depth 0.1 -Total Square Cm 0.54 -Photo Taken No -Exudate Amt None Present -Wound Margin Flat & Intact -Granulation Amt Large (67-100%) -Granulation Quality [employer] -Necrosis Amt Small (1-33%) -Necrotic Tissue Type Adherent Slough -Structure Exposed N/A -Texture (Radha-wound Skin Appearance) Localized Edema Scarring -Moisture (Radha-wound Skin Appearance Dry/Scaly ) -Color (Radha-wound Skin Appearance) Erythema -Temperature (Radha-wound Skin No Abnormality Appearance) (Pt Warm) -Tenderness on Palpation (Radha-wound No Skin Appearance) -Ulcer Cleansing Rinsed/ Irrigated with Saline -Foul Odor after Cleansing No -Anesthetic Used 4% Lidocaine Solution [Edema Assessment] -Left Calf (cm) 37 -Left Ankle (cm) 23.5 WC - Nurse 2 - General Ulcer CM Notes Start: 09/07/18 10:32 Freq: Status: Active Protocol: Activity Type Activity Date Activity User E-Sign Co-Sign Detail Recorded Client Recorded Date Recorded By Document 09/28/18 09:39 DV [id number] 09/28/18 09:40 DV 09/28/18 09:39 Wound Center Nurse 2 [Procedure/Treatment] #3 Left 4th Toe -Time 09:39 -Correct Patient Yes -Correct Side, Site, Position Yes -Correct Procedure Yes -Procedure Performed Yes -Type of Procedure Debridement -Clinical Debridement Subcutaneous -Post Debridement Size (cm) - Length 0.6 -Post Debridement Size (cm) - Width 1.1 -Post Debridement Size (cm) - Depth 0.1 -Total Square Cm 0.66 -Wound/Ulcer Outcome Not Healed -Ulcer Cleansing Rinsed/ Irrigated with Saline -Foul Odor after Cleansing No -Bioengineered Tissue No -Bleeding Controlled with Pressure -Offloading Yes -Type of Offloading Surgical Shoe -Treatment Response Procedure Tolerated Well [See Physician Procedure note for Specifics] Pain Scale: 0-10 Numeric [Pain] -Is Patient Pain Free? Yes Musculoskeletal: Tenderness - With manipulation of ulcer site Neurological: Sensory exam intact to light touch and pain Psych/Mental Status: Normal Affect, Appropriate Debridement Note Post-Debridement Measurements/Treatment WC - Nurse 2 - General Ulcer CM Notes Start: 09/07/18 10:32 Freq: Status: Active Protocol: Activity Type Activity Date Activity User E-Sign Co-Sign Detail Recorded Client Recorded Date Recorded By Document 09/07/18 11:15 DV [id number] 09/07/18 11:24 DV Document 09/14/18 09:51 DV [id number] 09/14/18 09:54 DV Document 09/21/18 09:17 DV [id number] 09/21/18 09:20 DV Document 09/28/18 09:39 DV [id number] 09/28/18 09:40 DV 09/07/18 09/14/18 09/21/18 11:15 09:51 09:17 Wound Center Nurse 2 #3 Left 4th Toe -Time 11:22 09:52 09:18 -Correct Patient Yes Yes Yes -Correct Side, Site, Position Yes Yes Yes -Correct Procedure Yes Yes Yes -Procedure Performed Yes Yes Yes -Type of Procedure Debridement Debridement Debridement -Clinical Debridement Subcutaneous Subcutaneous Subcutaneous -Post Debridement Size (cm) - Length 2.2 2.2 1.8 -Post Debridement Size (cm) - Width 1.7 1.4 1.2 -Post Debridement Size (cm) - Depth 0.1 0.1 0.1 -Total Square Cm 3.74 3.08 2.16 -Wound/Ulcer Outcome Not Healed Not Healed Not Healed -Ulcer Cleansing Rinsed/ Rinsed/ Rinsed/ Irrigated with Irrigated with Irrigated with Saline Saline Saline -Foul Odor after Cleansing No No No -Bioengineered Tissue No No No -Bleeding Controlled with Pressure Pressure Pressure -Offloading No No No -Type of Offloading Surgical Shoe -Treatment Response Procedure Procedure Procedure Tolerated Well Tolerated Well Tolerated Well #2 Left 3rd Toe -Time 11:22 09:52 09:18 -Correct Patient Yes Yes Yes -Correct Side, Site, Position Yes Yes Yes -Correct Procedure Yes Yes -Procedure Performed Yes Yes No -Type of Procedure Debridement Debridement -Clinical Debridement Subcutaneous Subcutaneous -Post Debridement Size (cm) - Length 1.2 0.8 0 -Post Debridement Size (cm) - Width 0.4 0.2 0 -Post Debridement Size (cm) - Depth 0.1 0.1 0 -Total Square Cm 0.48 0.16 0 -Wound/Ulcer Outcome Not Healed Not Healed Healed- Epithelialized -Ulcer Cleansing Rinsed/ Rinsed/ Irrigated with Irrigated with Saline Saline -Foul Odor after Cleansing No No -Bioengineered Tissue No No -Bleeding Controlled with Pressure Pressure -Offloading No No -Treatment Response Procedure Procedure Tolerated Well Tolerated Well Pain Scale: 0-10 Numeric Is Patient Pain Free? Yes Yes Yes 09/28/18 09:39 Wound Center Nurse 2 #3 Left 4th Toe -Time 09:39 -Correct Patient Yes -Correct Side, Site, Position Yes -Correct Procedure Yes -Procedure Performed Yes -Type of Procedure Debridement -Clinical Debridement Subcutaneous -Post Debridement Size (cm) - Length 0.6 -Post Debridement Size (cm) - Width 1.1 -Post Debridement Size (cm) - Depth 0.1 -Total Square Cm 0.66 -Wound/Ulcer Outcome Not Healed -Ulcer Cleansing Rinsed/ Irrigated with Saline -Foul Odor after Cleansing No -Bioengineered Tissue No -Bleeding Controlled with Pressure -Offloading Yes -Type of Offloading Surgical Shoe -Treatment Response Procedure Tolerated Well #2 Left 3rd Toe -Time -Correct Patient -Correct Side, Site, Position -Correct Procedure -Procedure Performed -Type of Procedure -Clinical Debridement -Post Debridement Size (cm) - Length -Post Debridement Size (cm) - Width -Post Debridement Size (cm) - Depth -Total Square Cm -Wound/Ulcer Outcome -Ulcer Cleansing -Foul Odor after Cleansing -Bioengineered Tissue -Bleeding Controlled with -Offloading -Treatment Response Pain Scale: 0-10 Numeric Is Patient Pain Free? 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 Subcutaneous debridement was performed as noted in the clinical panel to 4th toe of left foot. Patient says tenderness to toe continues to slowly improve each week. Once complete, ulcer site was dressed with slightly moistened Daisha followed by dry sterile dressing. Patient is to continue with daily dressings in this manner with the help of his son. Patient is instructed to also continue with offloading surgical shoe at all times weight bearing. Patient is to wear Tubigrip's as instructed. Patient's recent ADIN studies and venous Doppler exam that were performed at another facility were read last week and full report is in the patient's chart. Patient was educated on all signs and symptoms of local and systemic infection, and he is instructed to go to the emergency room immediately should he notice any. All other questions were answered to the patient's satisfaction. Patient will follow-up at the wound healing center in 1 week to check on progress, but he was instructed to follow-up sooner if needed.
--- NOTE | 2018-09-28 09:59 | PN.PCM_ITS ---
(1) Chronic ulcer of left foot with fat layer exposed Status: Chronic Current Visit: Yes Code(s): L97.522 - Non-pressure chronic ulcer of other part of left foot with fat layer exposed (2) Pain in left toe(s) Status: Acute Current Visit: Yes Code(s): M79.675 - Pain in left toe(s) (3) Lower extremity edema Status: Acute Current Visit: No Code(s): R60.0 - Localized edema (4) Delayed wound healing Status: Acute Current Visit: No Code(s): T14.8XXD - Other injury of unspecified body region, subsequent encounter Type of Wound Chief Complaint: Ulcer to left 3rd and 4th toes History of Wound: Patient is a poor historian. He presents back to wound healing center again today after being referred from his primary care doctor for ulcers to the left third and fourth toes. Patient says he was out putting up a fence in July and he feels he may have created ulcers to his third and fourth toe at this time. He has tried to treat them on his own with Neosporin and a bandage, but he has not seen any significant improvement. He relates that his primary care doctor recently started him on a course of antibiotics, but he is unsure what he is taking. He says he has not noticed any redness, malodor, or any pus from the area. He currently denies any feelings of nausea, vomiting, fever, or chills. Progress of Wound: Ulcers to left 4th toe shows improvement this week again. Patient has had daily daisha dressing changes with help of his son. Patient says he has been wearing offloading surgical shoe. He denies any nausea, vomiting, fever, or chills. - Physical Exam Vital Signs Temp Pulse Resp BP 97.1 F L 80 18 167/76 H 09/28/18 08:48 09/28/18 08:48 09/28/18 08:48 09/28/18 08:48 General: Alert, Oriented x3, Cooperative, No apparent distress Extremities: Capillary Refill Less than 3 Seconds, No Calf Tenderness - Negative Alicia and Bishop sign, Diminished Peripheral Pulses - PT pulses palpable and DP pulses nonpalpable due to edema, Edema - Bilateral pitting lower extremity edema Skin: Ulcer/ Wound - Ulcer with fat layer exposed to the left dorsal fourth toe. Measurements are noted below. The base continues to be a mixture of adherent slough, fibrin, granular tissue as well as some slight surrounding hyperkeratotic tissue. There continues to be no surrounding or extending cellulitis, no purulence, no malodor, no increase in warmth, no probing to bone, no tracking, no undermining. Wound Measurements and Assessment WC - Nurse 1 - General Ulcer Measurement Start: 09/07/18 10:32 Freq: Status: Active Protocol: Activity Type Activity Date Activity User E-Sign Co-Sign Detail Recorded Client Recorded Date Recorded By Document 09/28/18 08:48 DL [id number] 09/28/18 08:56 DL 09/28/18 08:48 Wound Center Nurse 1 [Ulcer Assessment] #3 Left 4th Toe -Current Size (cm) - Length 0.6 -Current Size (cm) - Width 0.9 -Current Size (cm) - Depth 0.1 -Total Square Cm 0.54 -Photo Taken No -Exudate Amt None Present -Wound Margin Flat & Intact -Granulation Amt Large (67-100%) -Granulation Quality Morales-Sanchez -Necrosis Amt Small (1-33%) -Necrotic Tissue Type Adherent Slough -Structure Exposed N/A -Texture (Radha-wound Skin Appearance) Localized Edema Scarring -Moisture (Radha-wound Skin Appearance Dry/Scaly ) -Color (Radha-wound Skin Appearance) Erythema -Temperature (Radha-wound Skin No Abnormality Appearance) (Pt Warm) -Tenderness on Palpation (Radha-wound No Skin Appearance) -Ulcer Cleansing Rinsed/ Irrigated with Saline -Foul Odor after Cleansing No -Anesthetic Used 4% Lidocaine Solution [Edema Assessment] -Left Calf (cm) 37 -Left Ankle (cm) 23.5 WC - Nurse 2 - General Ulcer CM Notes Start: 09/07/18 10:32 Freq: Status: Active Protocol: Activity Type Activity Date Activity User E-Sign Co-Sign Detail Recorded Client Recorded Date Recorded By Document 09/28/18 09:39 DV [id number] 09/28/18 09:40 DV 09/28/18 09:39 Wound Center Nurse 2 [Procedure/Treatment] #3 Left 4th Toe -Time 09:39 -Correct Patient Yes -Correct Side, Site, Position Yes -Correct Procedure Yes -Procedure Performed Yes -Type of Procedure Debridement -Clinical Debridement Subcutaneous -Post Debridement Size (cm) - Length 0.6 -Post Debridement Size (cm) - Width 1.1 -Post Debridement Size (cm) - Depth 0.1 -Total Square Cm 0.66 -Wound/Ulcer Outcome Not Healed -Ulcer Cleansing Rinsed/ Irrigated with Saline -Foul Odor after Cleansing No -Bioengineered Tissue No -Bleeding Controlled with Pressure -Offloading Yes -Type of Offloading Surgical Shoe -Treatment Response Procedure Tolerated Well [See Physician Procedure note for Specifics] Pain Scale: 0-10 Numeric [Pain] -Is Patient Pain Free? Yes Musculoskeletal: Tenderness - With manipulation of ulcer site Neurological: Sensory exam intact to light touch and pain Psych/Mental Status: Normal Affect, Appropriate Debridement Note Post-Debridement Measurements/Treatment WC - Nurse 2 - General Ulcer CM Notes Start: 09/07/18 10:32 Freq: Status: Active Protocol: Activity Type Activity Date Activity User E-Sign Co-Sign Detail Recorded Client Recorded Date Recorded By Document 09/07/18 11:15 DV [id number] 09/07/18 11:24 DV Document 09/14/18 09:51 DV [id number] 09/14/18 09:54 DV Document 09/21/18 09:17 DV [id number] 09/21/18 09:20 DV Document 09/28/18 09:39 DV [id number] 09/28/18 09:40 DV 09/07/18 09/14/18 09/21/18 11:15 09:51 09:17 Wound Center Nurse 2 #3 Left 4th Toe -Time 11:22 09:52 09:18 -Correct Patient Yes Yes Yes -Correct Side, Site, Position Yes Yes Yes -Correct Procedure Yes Yes Yes -Procedure Performed Yes Yes Yes -Type of Procedure Debridement Debridement Debridement -Clinical Debridement Subcutaneous Subcutaneous Subcutaneous -Post Debridement Size (cm) - Length 2.2 2.2 1.8 -Post Debridement Size (cm) - Width 1.7 1.4 1.2 -Post Debridement Size (cm) - Depth 0.1 0.1 0.1 -Total Square Cm 3.74 3.08 2.16 -Wound/Ulcer Outcome Not Healed Not Healed Not Healed -Ulcer Cleansing Rinsed/ Rinsed/ Rinsed/ Irrigated with Irrigated with Irrigated with Saline Saline Saline -Foul Odor after Cleansing No No No -Bioengineered Tissue No No No -Bleeding Controlled with Pressure Pressure Pressure -Offloading No No No -Type of Offloading Surgical Shoe -Treatment Response Procedure Procedure Procedure Tolerated Well Tolerated Well Tolerated Well #2 Left 3rd Toe -Time 11:22 09:52 09:18 -Correct Patient Yes Yes Yes -Correct Side, Site, Position Yes Yes Yes -Correct Procedure Yes Yes -Procedure Performed Yes Yes No -Type of Procedure Debridement Debridement -Clinical Debridement Subcutaneous Subcutaneous -Post Debridement Size (cm) - Length 1.2 0.8 0 -Post Debridement Size (cm) - Width 0.4 0.2 0 -Post Debridement Size (cm) - Depth 0.1 0.1 0 -Total Square Cm 0.48 0.16 0 -Wound/Ulcer Outcome Not Healed Not Healed Healed- Epithelialized -Ulcer Cleansing Rinsed/ Rinsed/ Irrigated with Irrigated with Saline Saline -Foul Odor after Cleansing No No -Bioengineered Tissue No No -Bleeding Controlled with Pressure Pressure -Offloading No No -Treatment Response Procedure Procedure Tolerated Well Tolerated Well Pain Scale: 0-10 Numeric Is Patient Pain Free? Yes Yes Yes 09/28/18 09:39 Wound Center Nurse 2 #3 Left 4th Toe -Time 09:39 -Correct Patient Yes -Correct Side, Site, Position Yes -Correct Procedure Yes -Procedure Performed Yes -Type of Procedure Debridement -Clinical Debridement Subcutaneous -Post Debridement Size (cm) - Length 0.6 -Post Debridement Size (cm) - Width 1.1 -Post Debridement Size (cm) - Depth 0.1 -Total Square Cm 0.66 -Wound/Ulcer Outcome Not Healed -Ulcer Cleansing Rinsed/ Irrigated with Saline -Foul Odor after Cleansing No -Bioengineered Tissue No -Bleeding Controlled with Pressure -Offloading Yes -Type of Offloading Surgical Shoe -Treatment Response Procedure Tolerated Well #2 Left 3rd Toe -Time -Correct Patient -Correct Side, Site, Position -Correct Procedure -Procedure Performed -Type of Procedure -Clinical Debridement -Post Debridement Size (cm) - Length -Post Debridement Size (cm) - Width -Post Debridement Size (cm) - Depth -Total Square Cm -Wound/Ulcer Outcome -Ulcer Cleansing -Foul Odor after Cleansing -Bioengineered Tissue -Bleeding Controlled with -Offloading -Treatment Response Pain Scale: 0-10 Numeric Is Patient Pain Free? 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 Subcutaneous debridement was performed as noted in the clinical panel to 4th toe of left foot. Patient says tenderness to toe continues to slowly improve each week. Once complete, ulcer site was dressed with slightly moistened Daisha followed by dry sterile dressing. Patient is to continue with daily dressings in this manner with the help of his son. Patient is instructed to also continue with offloading surgical shoe at all times weight bearing. Patient is to wear Tubigrip's as instructed. Patient's recent ADIN studies and venous Doppler exam that were performed at another facility were read last week and full report is in the patient's chart. Patient was educated on all signs and symptoms of local and systemic infection, and he is instructed to go to the emergency room immediately should he notice any. All other questions were answered to the patient's satisfaction. Patient will follow-up at the wound healing center in 1 week to check on progress, but he was instructed to follow-up sooner if needed.
== END 2018-10-05 23:59 ==
LOC: WC 08:45
PROVIDERS: PCP Nurse Practitioner Family; Visit Provider Podiatrist
DX: L97.522 Non-pressure chronic ulcer of other part of left foot with fat layer exposed (principal); R60.0 Localized edema; M79.675 Pain in left toe(s); I11.0 Hypertensive heart disease with heart failure; I50.9 Heart failure, unspecified; Z79.899 Other long term (current) drug therapy; Z79.82 Long term (current) use of aspirin; Z87.891 Personal history of nicotine dependence
CPT/HCPCS: 11042; 99213; G0463

== ENCOUNTER 2018-10-12 07:43 | Outpatient (RCR) | payer MEDICARE, OTHER, SELFPAY ==
[2018-10-06 01:38] VITALS: BP 167/76; PULSE 80; RESP 18; TEMP 36.2
[2018-10-12 09:12] VITALS: BP 163/85; PULSE 92; RESP 18; TEMP 36.6; BMI 28.5
--- NOTE | 2018-10-12 09:56 | PN.PCM_ITS ---
(1) Chronic ulcer of left foot with fat layer exposed Status: Acute Current Visit: No Code(s): L97.522 - Non-pressure chronic ulcer of other part of left foot with fat layer exposed (2) Delayed wound healing Status: Acute Current Visit: No Code(s): T14.8XXD - Other injury of unspecified body region, subsequent encounter (3) Lower extremity edema Status: Acute Current Visit: No Code(s): R60.0 - Localized edema (4) Pain in left toe(s) Status: Acute Current Visit: No Code(s): M79.675 - Pain in left toe(s) Type of Wound Chief Complaint: Ulcer to left 3rd and 4th toes History of Wound: Patient is a poor historian. He presents back to wound healing center again today after being referred from his primary care doctor for ulcers to the left third and fourth toes. Patient says he was out putting up a fence in July and he feels he may have created ulcers to his third and fourth toe at this time. He has tried to treat them on his own with Neosporin and a bandage, but he has not seen any significant improvement. He relates that his primary care doctor recently started him on a course of antibiotics, but he is unsure what he is taking. He says he has not noticed any redness, malodor, or any pus from the area. He currently denies any feelings of nausea, vomiting, fever, or chills. Progress of Wound: Ulcers to left 4th toe shows improvement this week again. Patient missed last week due to weather. Patient has had daily daisha dressing changes with help of his son. Patient says he has been wearing offloading surgical shoe. He denies any nausea, vomiting, fever, or chills. - Physical Exam Vital Signs Temp Pulse Resp BP 97.8 F 92 18 163/85 H 10/12/18 09:12 10/12/18 09:12 10/12/18 09:12 10/12/18 09:12 General: Alert, Oriented x3, Cooperative, No apparent distress Extremities: Capillary Refill Less than 3 Seconds, No Calf Tenderness - Negative Alicia and Bishop sign, Diminished Peripheral Pulses - PT pulses palpable and DP pulses nonpalpable due to edema, Edema - Bilateral pitting lower extremity edema Skin: Ulcer/ Wound - Ulcer with fat layer exposed to the left dorsal fourth toe. Measurements are noted below. The base continues to be a mixture of adherent slough, fibrin, granular tissue as well as some slight surrounding hyperkeratotic tissue. There continues to be no surrounding or extending cellulitis, no purulence, no malodor, no increase in warmth, no probing to bone, no tracking, no undermining. Wound Measurements and Assessment WC - Nurse 1 - General Ulcer Measurement Start: 10/12/18 09:12 Freq: Status: Active Protocol: Activity Type Activity Date Activity User E-Sign Co-Sign Detail Recorded Client Recorded Date Recorded By Document 10/12/18 09:12 RB [id number] 10/12/18 09:24 RB 10/12/18 09:12 Wound Center Nurse 1 [Ulcer Assessment] #3 Left 4th Toe -Combined with other wound No -Current Size (cm) - Length 0.5 -Current Size (cm) - Width 0.5 -Current Size (cm) - Depth 0.1 -Total Square Cm 0.25 -Photo Taken No -Tunneling No -Undermining/Tunneling No -Circular Undermining No -Exudate Amt Small -Exudate Type Serosanguineous -Wound Margin Distinct, Outline Attached -Granulation Amt Large (67-100%) -Granulation Quality [place] Red -Slough/Fibrin Yes -Necrosis Amt Small (1-33%) -Necrotic Tissue Type Adherent Slough -Structure Exposed N/A -Texture (Radha-wound Skin Appearance) Assessed -Moisture (Radha-wound Skin Appearance Dry/Scaly ) -Color (Radha-wound Skin Appearance) Assessed -Temperature (Radha-wound Skin No Abnormality Appearance) (Pt Warm) -Tenderness on Palpation (Radha-wound No Skin Appearance) -Ulcer Cleansing Rinsed/ Irrigated with Saline -Foul Odor after Cleansing No -Anesthetic Used 4% Lidocaine Solution [Edema Assessment] -Lower Limb Edema Present Yes -Left Calf (cm) 36 -Left Ankle (cm) 24 Musculoskeletal: Tenderness - With manipulation of ulcer site Neurological: Sensory exam intact to light touch and pain Psych/Mental Status: Normal Affect, Appropriate Debridement Note Wound debrided: Left dorsal fourth toe Laterality: Left Type of Debridement: Excisional debridement Anesthesia Used: 4% Lidocaine Solution Depth: in the subcutaneous layer Percentage of wound debrided: 100 Instrument Used: 7mm curette Tissue Removed: Adherent slough, fibrin, hyperkeratotic tissue Severity: Fat Layer Exposed Amount of bleeding with debridement: Mild Bleeding Controlled with: Pressure Patient tolerated procedure well Assessment/Plan Assessment: Ulcer to left 4th toe, lower extremity edema Plan: Patient was examined and evaluated again today. Subcutaneous debridement was performed as noted in the clinical panel to 4th toe of left foot. Patient missed last week due to weather. Once complete, ulcer site was dressed with slightly moistened Daisha followed by dry sterile dressing. Patient is to continue with daily dressings in this manner with the help of his son. Patient is instructed to also continue with offloading surgical shoe at all times weight bearing. Patient is to wear Tubigrip's as instructed. Patient's recent ADIN studies and venous Doppler exam that were performed at another facility were read last week and full report is in the patient's chart. Patient was educated on all signs and symptoms of local and systemic infection, and he is instructed to go to the emergency room immediately should he notice any. All other questions were answered to the patient's satisfaction. Patient will follow-up at the wound healing center in 1 week to check on progress, but he was instructed to follow-up sooner if needed.
== END 2018-11-02 23:59 ==
LOC: WC 07:43
PROVIDERS: PCP Nurse Practitioner Family; Visit Provider Podiatrist
DX: L97.522 Non-pressure chronic ulcer of other part of left foot with fat layer exposed (principal); R60.0 Localized edema; M79.675 Pain in left toe(s); I11.0 Hypertensive heart disease with heart failure; I50.9 Heart failure, unspecified; Z79.899 Other long term (current) drug therapy; Z79.82 Long term (current) use of aspirin; Z87.891 Personal history of nicotine dependence
CPT/HCPCS: 11042